=== PATIENT | female | born 1925 | race Caucasian/White ===

== ENCOUNTER 2016-05-29 10:52 | Inpatient (IN) ==
[2016-05-29] MEDS ORDERED: cefTRIAXone 1,000 MG in SODIUM CHLORIDE 0.9% 100 ML IV STA (15:02)
[2016-05-29] MEDS ORDERED: ACETAMINOPHEN 500 MG TABLET PO STA (15:02)
[2016-05-29] MEDS ORDERED: SODIUM CHLORIDE 0.9% 500 ML IV STA (15:02)
[2016-05-29 15:17] LABS: Basophils # 0.1 10*3/uL (0.0-0.2); Basophils % 0.3 % (0.0-0.8); Eosinophils # 0.1 10*3/uL (0.0-0.87); Eosinophils % 0.3 % (0.00-10.9); Hematocrit 35.3 VOL% (35.7-47.0); Hemoglobin 11.8 GM/DL (12.0-16.0); Immature Granulocytes % 0.6 %; Lymphocytes # 1.1 10*3/uL (1.4-4.0); Lymphocytes % 6.2 % (21.3-54.2); Mean Corpuscular HGB Conc 33.4 GM/DL (32-36); Mean Corpuscular Hemoglobin 28 PG (27-34); Mean Corpuscular Volume 84.4 FL (87-102); Mean Platelet Volume 11.8 FL (9.6-12.0); Monocytes # 1.5 10*3/uL (0.11-0.8); Monocytes % 8.3 % (1.7-12.7); Neutrophils # 15.1 10*3/uL (1.4-7.4); Neutrophils % 84.3 % (38.7-73.9); Platelet Count 174 T/CUMM (130-400); Red Blood Count 4.18 MC/CUMM (3.8-5.5); Red Cell Distribution Width 14.2 % (9.3-17.3); White Blood Count 17.9 T/CUMM (4-12)
--- NOTE | 2016-05-29 15:18 | Emergency Department Note ---
ICornelius Meredith, am scribing for, and in the presence of, Moe King MD 14:23. Christine Gomes Charles R, MD, personally performed the services described in this documentation, ascribed by Jaimee Shields in my presence, and it is both accurate and complete 518 . Arrival - Arrival Chief Complaint: Non-Specific Stated Complaint: UTI Kidney problems sob feels cold ED Nursing Triage Note: pt was sent from [facility] for dehyradtion, a fib and uti. pt was seen here saturday in the er and didnt want to stay Mode of Arrival: Wheelchair Limitations: No Limitations Source: Patient, Family, Old Records Reviewed, RN Notes Reviewed Time Seen by Provider: 05/29/16 13:50 - History of Present Illness HPI Narrative: Pt is an 89 y/o white female sent to the ED from Dr. Carroll's office for further evaluation of dehydration, a-fib, and UTI. Niece states that last night pt had chills and rigors. Pt denies body aches. She was seen here 3 days ago but dit not want to stay. She has a history of HTN and valvular heart disease. Onset (ago): day(s) Allergies/Adverse Reactions: Allergies Allergy/AdvReac Type Severity Reaction Status Date / Time No Known Allergies Allergy Unverified 05/26/16 11:42 Home Medications: Home Medications Medication Instructions Recorded Confirmed Type Allopurinol 300 mg PO DAILY 05/29/16 05/29/16 History Aspirin [Ecotrin] 81 mg PO DAILY 05/29/16 05/29/16 History Atorvastatin [Lipitor] 5 mg PO QPM 05/29/16 05/29/16 History Calcium (Carbonate) [Oscal 500] 500 mg PO BID 05/29/16 05/29/16 History Fluticasone/Salmeterol 250-50 1 puff INH BID 05/29/16 05/29/16 History [Advair 250-50] Furosemide Tab [Lasix Tab] 20 mg PO BID 05/29/16 05/29/16 History Meloxicam [Mobic] 7.5 mg PO BID PRN 05/29/16 05/29/16 History Metoprolol Tartrate 50 mg PO BID 05/29/16 05/29/16 History Vit C/Selvin AC/Lut/Copper/Znox 1 each PO BID 05/29/16 05/29/16 History [Preservision Lutein Softgel] Warfarin [Coumadin] 3 mg PO QPM 05/29/16 05/29/16 History amLODIPine [Norvasc] 5 mg PO QPM 05/29/16 05/29/16 History diltiaZEM HCl [Diltiazem HCl] 120 mg PO DAILY 05/29/16 05/29/16 History Review of System - Review of System 12 point system: reviewed and no additional remarkable complaints except as stated - Review of System Constitutional: Present: as per HPI, chills, other (rigors) Cardiovascular: Present: as per HPI, other (a-fib) Gastrointestinal: Present: as per HPI, other (dehydration) Genitourinary female: Present: as per HPI, other (UTI) Medical,Surgical,& Family Hx - Medical History Cardio: History of: Hypertension, Valvular Heart Disease - Surgical History Orthopedic Surgeries: Patient denies;: Spinal Surgery - Family History Family History: Denies;: Additional Family History - Social History Smoking Status: Never smoker Frequency of Alcohol Use: None Type of Drug Use: None Exam Vital Signs: Vital Signs Temperature 97.6 F 05/29/16 12:16 Pulse Rate 81 05/29/16 12:16 Respiratory Rate 18 05/29/16 12:16 Blood Pressure 144/74 05/29/16 12:16 O2 Sat by Pulse Oximetry 95 05/29/16 11:03 - General General appearance: alert, in no apparent distress - Head Head exam: Present: atraumatic, normocephalic - Eye Eye exam: Present: normal appearance, PERRL, EOMI - ENT ENT exam: Present: mucous membranes dry, normal external ear exam - Neck Neck exam: Present: full ROM, trachea midline. Absent: tenderness, meningismus , lymphadenopathy, thyromegaly - Chest Chest inspection: Present: symmetric chest wall rise. Absent: tenderness, rash - Respiratory Respiratory exam: Present: rhonchi (bilaterally ) - Cardiovascular Cardiovascular exam: Present: irregular rhythm. Absent: murmur, rubs, gallop - Abdominal Exam Abdominal exam: Present: soft, normal bowel sounds. Absent: distention, tenderness - Extremities Exam Extremities exam: Present: full ROM, normal capillary refill. Absent: tenderness, pedal edema, calf tenderness - Back Exam Back exam: Present: full ROM. Absent: tenderness - Neurological Exam Neurological exam: Present: alert, oriented X3, CN II-XII intact. Absent: motor sensory deficit - Psychiatric Psychiatric exam: Present: normal affect, normal mood - Skin Skin exam: Present: warm, dry, intact, normal color Course - Consultations Consultation #1: Hospitalist will admit patient Time: 16:13 Results - Labs CBC & BMP: 05/29/16 15:10 05/29/16 15:10 Lab Results: I have reviewed the patients labs Labs: Laboratory Tests 05/29/16 15:10 WBC 17.9 H RBC 4.18 Hgb 11.8 L Hct 35.3 L MCV 84.4 L Plt Count 174 Neut % (Auto) 84.3 H Lymph % (Auto) 6.2 L Neut # (Auto) 15.1 H Lymph # (Auto) 1.1 L Moca # (Auto) 1.5 H Laboratory Tests 05/29/16 15:10 Sodium 140 Potassium 3.3 L Chloride 105 Carbon Dioxide 25 BUN 23 H Creatinine 0.90 BUN/Creatinine Ratio 25.00 H Glucose 120 H Alkaline Phosphatase 131 H Lactate Dehydrogenase 335 H C-Reactive Protein 14.70 H Albumin 2.8 L Globulin 3.8 H Albumin/Globulin Ratio 0.7 L Influenza A: neg Influenza B: neg Strep: neg Laboratory Tests 05/29/16 16:03 Urine pH 6.0 Ur Specific [place] 1.015 Urine Protein 30 Urine Ketones 20 Urine Urobilinogen < 2.0 H Urine Leukocytes Moderate H Urine WBC 153 Urine WBC Clumps Many Ur Squamous Epith Cells Occasional Amorphous Crystals Occasional Urine Bacteria Many - Diagnostic Findings Procedure: Chest x-ray: report reviewed by me (1. Cardiomegaly. 2. Probable minimal pulmonary edema.) Critical Care Time Critical Care Time: Yes Total Critical Care Time: 60 Disposition Clinical Impression: Rigors, Fever, UTI (urinary tract infection) Case discussed with: patient Condition: Stable Time of Disposition: 16:14
--- NOTE | 2016-05-29 15:29 | XRay Report ---
Referring Physician: Moe King Exam: XR chest 1V portable Date: May 29, 2016 at 3:02 PM Reason: Shortness of breath, fever Comparison: May 26, 2016 Findings: The cardiac silhouette is again enlarged, and the patient is status post sternotomy. The thoracic aorta is tortuous with scattered calcified plaque. The interstitial markings are prominent bilaterally. This likely represents minimal pulmonary edema. Pneumonia is not excluded but is thought less likely. No pneumothorax or pleural effusion is identified. Impression: 1. Cardiomegaly. 2. Probable minimal pulmonary edema. PROCEDURE INTERPRETED AT [facility] DEPARTMENT OF RADIOLOGY Final Report Signed by: Dr. Wild Casas
[2016-05-29 15:38] LABS: Albumin 2.8 G/DL (3.4-5.0); Bilirubin,Total 0.9 MG/DL (0.2-1.0); Calcium 9.4 MG/DL (8.5-10.1); Osmolality,Calculated 283.4 MOS/KG (273-304); Potassium 3.3 MMOL/L (3.5-5.1); Total Protein 6.6 G/DL (6.4-8.3)
[2016-05-29] MEDS ORDERED: cefTRIAXone 1,000 MG VIAL ONE (15:38)
[2016-05-29] MEDS ORDERED: ACETAMINOPHEN 500 MG TABLET ONE (15:39)
[2016-05-29 16:23] LABS: Amorphous Crystals,Urine Occasional /HPF (Few); Apearance,Urine CLOUDY (Clear); Bacteria,Urine Many /HPF (Few); Bilirubin,Urine Negative (Negative); Blood, Urine Negative (Negative); Glucose,Urine (UA) Negative (Negative); Ketones,Urine 20 mg/dL (Negative); Nitrite,Urine Negative (Negative); Protein,Urine 30 MG/DL; Squamous Epithelial Cell,Urine Occasional /HPF (0-10); Urine Color Yellow (Yellow); Urine Specific Gravity 1.015 (1.001-1.035); Urine Urobilinogen < 2.0 EU/DL (0.2-1.0); WBC,Urine 153 /HPF (0-6)
--- NOTE | 2016-05-29 17:13 | Hospitalist History & Physical ---
Assessment and Plan (1) Urinary tract infection Status: Acute Assessment and plan: will continue with IV Rocephin -follow UC, BC continue IVF Current Visit: Yes (2) Dehydration Status: Acute Assessment and plan: due to UTI -will continue with IVF Current Visit: Yes (3) Atrial fibrillation Status: Acute Assessment and plan: rate is stable, will continue with home meds, resume coumadin and check INR level Current Visit: No (4) HTN (hypertension) Status: Acute Assessment and plan: use meds cautiously and hold lasix, diltiazem and Norvasc for now Current Visit: Yes (5) Dyslipidemia Status: Acute Assessment and plan: will resume home meds Current Visit: Yes (6) Gout Status: Acute Assessment and plan: continue home meds Current Visit: Yes (7) Valvular disease Status: Acute Assessment and plan: stable for now Current Visit: Yes History of Present Illness Chief complaint: fever, chills, rigor History of present illness: Ms. Sullivan is a 89 year old female with a history of HTN, valvular heart disease , A.fib who presented to the ER on Saturday with fever, chills and rigor.She was diagnosed with UTI and was treated and sent home.Symptoms worsened two days after, and was brought back to the ER today.She denies a history of dysuria, hematuria and abdominal pain. No history of chest pain, tightness and SOB.No leg pain or swelling and no bleeding problems. Upon arrival, WBC was elevated at 17.9, BUN was high at 23.UA was positive, she was started on IV Rocephin, IVF , acetaminophen and now on admission for further care. Home Medications Medication Instructions Recorded Confirmed Type Allopurinol 300 mg PO DAILY 05/29/16 05/29/16 History Aspirin [Ecotrin] 81 mg PO DAILY 05/29/16 05/29/16 History Atorvastatin [Lipitor] 5 mg PO QPM 05/29/16 05/29/16 History Calcium (Carbonate) [Oscal 500] 500 mg PO BID 05/29/16 05/29/16 History Fluticasone/Salmeterol 250-50 1 puff INH BID 05/29/16 05/29/16 History [Advair 250-50] Furosemide Tab [Lasix Tab] 20 mg PO BID 05/29/16 05/29/16 History Meloxicam [Mobic] 7.5 mg PO BID PRN 05/29/16 05/29/16 History Metoprolol Tartrate 50 mg PO BID 05/29/16 05/29/16 History Vit C/Selvin AC/Lut/Copper/Znox 1 each PO BID 05/29/16 05/29/16 History [Preservision Lutein Softgel] Warfarin [Coumadin] 3 mg PO QPM 05/29/16 05/29/16 History amLODIPine [Norvasc] 5 mg PO QPM 05/29/16 05/29/16 History diltiaZEM HCl [Diltiazem HCl] 120 mg PO DAILY 05/29/16 05/29/16 History Allergies Allergy/AdvReac Type Severity Reaction Status Date / Time No Known Allergies Allergy Unverified 05/26/16 11:42 Medical,Surgical,& Family Hx - Medical History Cardio: History of: Hypertension, Valvular Heart Disease - Surgical History Orthopedic Surgeries: Patient denies;: Spinal Surgery - Family History Family History: Denies;: Additional Family History - Social History Smoking Status: Never smoker Frequency of Alcohol Use: None Type of Drug Use: None 12 point system: reviewed and no additional remarkable complaints except as stated Exam - Constitutional Vitals: Period Temp Pulse Resp BP Sys/Fitzgerald Pulse Ox Last 24 Hr 97.6 F-98.2 F 81-99 18-20 122-144/71-74 95 General appearance: no acute distress - Head Head exam: Present: normal inspection - Respiratory Respiratory exam: Present: clear to auscultation bilaterally - Cardiovascular Cardiovascular exam: Present: regular rate and rhythm - GI/Abdominal GI/Abdominal exam: Present: normal bowel sounds - Extremities Exam Extremities exam: Present: normal inspection Results - Labs CBC & BMP: 05/29/16 15:10 05/29/16 15:10 Lab Results: I have reviewed the past 24 hour labs
[2016-05-29] MEDS ORDERED: MELOXICAM 7.5 MG TABLET PO PRN (22:01)
[2016-05-29] MEDS: MULTIVITAMIN (OCUVITE) TABLET PO SCH (23:25)
[2016-05-29] MEDS: SODIUM CHLORIDE 0.9% 1,000 ML IV SCH (23:25)
[2016-05-29] MEDS: CALCIUM (CARBONATE) 500 MG TABLET PO SCH (23:25)
[2016-05-29] MEDS: ATORVASTATIN 10 MG TABLET PO SCH (23:25)
[2016-05-29] MEDS: METOPROLOL TARTRATE 50 MG TABLET PO SCH (23:26)
[2016-05-29] MEDS: FLUTICASONE/SALMETEROL 250-50 DISKUS 14 DOSE INH SCH (23:26)
[2016-05-29 23:28] LABS: INR 3.1
[2016-05-29 23:29] LABS: PT Patient Result 35.5 SECS
[2016-05-30] MEDS: WARFARIN 3 MG TABLET PO SCH ×2 (00:29→17:40)
[2016-05-30 00:37] LABS: Cholesterol < 50 MG/DL (50-200); HDL Cholesterol 18 MG/DL (40-60); Risk Ratio 2.78; Triglycerides 147 MG/DL (2-150); VLDL CHOLESTEROL 29.4 MG/DL
[2016-05-30 06:06] LABS: Basophils % 0.2 % (0.0-0.8); Eosinophils % 0.1 % (0.00-10.9); Hematocrit 33.7 VOL% (35.7-47.0); Hemoglobin 11.2 GM/DL (12.0-16.0); Immature Granulocytes Absolute 0.16 #; Lymphocytes # 1.4 10*3/uL (1.4-4.0); Lymphocytes % 8.1 % (21.3-54.2); Mean Corpuscular HGB Conc 33.2 GM/DL (32-36); Mean Corpuscular Hemoglobin 28 PG (27-34); Mean Corpuscular Volume 84.9 FL (87-102); Mean Platelet Volume 12.7 FL (9.6-12.0); Monocytes # 1.2 10*3/uL (0.11-0.8); Monocytes % 7.2 % (1.7-12.7); Neutrophils # 13.9 10*3/uL (1.4-7.4); Neutrophils % 83.4 % (38.7-73.9); Platelet Count 189 T/CUMM (130-400); Red Blood Count 3.97 MC/CUMM (3.8-5.5); Red Cell Distribution Width 14.6 % (9.3-17.3); White Blood Count 16.6 T/CUMM (4-12)
[2016-05-30 06:19] LABS: INR 3.6; PT Patient Result 41.1 SECS
[2016-05-30 06:39] LABS: Albumin 2.7 G/DL (3.4-5.0); Bilirubin,Total 1.2 MG/DL (0.2-1.0); Calcium 9.2 MG/DL (8.5-10.1); Osmolality,Calculated 287.8 MOS/KG (273-304); Potassium 3.5 MMOL/L (3.5-5.1); Total Protein 5.6 G/DL (6.4-8.3)
[2016-05-30] MEDS: MULTIVITAMIN (OCUVITE) TABLET PO SCH ×2 (08:38→21:43)
[2016-05-30] MEDS: METOPROLOL TARTRATE 50 MG TABLET PO SCH ×2 (08:38→21:43)
[2016-05-30] MEDS: ASPIRIN EC 81 MG TABLET PO SCH (08:38)
[2016-05-30] MEDS: ALLOPURINOL 300 MG TABLET PO SCH (08:38)
[2016-05-30] MEDS: CALCIUM (CARBONATE) 500 MG TABLET PO SCH ×2 (08:38→21:44)
[2016-05-30] MEDS: PANTOPRAZOLE 40 MG TABLET PO SCH (08:38)
[2016-05-30] MEDS: FLUTICASONE/SALMETEROL 250-50 DISKUS 14 DOSE INH SCH ×2 (09:14→21:43)
[2016-05-30] MEDS: SODIUM CHLORIDE 0.9% 1,000 ML IV SCH ×2 (10:21→13:36)
[2016-05-30] MEDS: ALBUTEROL/IPRATROPIUM 3 ML NEB RESP TX PRN (14:35)
--- NOTE | 2016-05-30 15:09 | Hospitalist Progress Note ---
Assessment and Plan (1) Urinary tract infection Status: Acute Assessment and plan: UC grew gram positive cocci -will add IV vanc, monitor levels and follow sensitivity, follow Bc Current Visit: Yes (2) Dehydration Status: Acute Assessment and plan: due to UTI -will encourage po intake Current Visit: Yes (3) Atrial fibrillation Status: Acute Assessment and plan: rate is stable, continue with home meds, coumadin and check INR level- Pharmacy to keep assisting. Current Visit: No (4) HTN (hypertension) Status: Acute Assessment and plan: use meds cautiously and hold lasix, diltiazem and Norvasc for now Current Visit: Yes (5) Dyslipidemia Status: Acute Assessment and plan: continue with statins Current Visit: Yes (6) Gout Status: Acute Assessment and plan: continue with Allopurinol Current Visit: Yes (7) Valvular disease Status: Acute Assessment and plan: stable for now Current Visit: Yes (8) Acute respiratory distress Status: Acute Assessment and plan: r/o atelectasis vs fluid overload CXR, D-dimer, if elevated-consider CT with PTE protocol although patient is already on coumadin. -hold IVf for now, continue with oxygen, nebs treatment Current Visit: Yes Hospitalist: Subjective Interval history: Patient seen.She had an episode of SOB so her IVF was held and she was started on oxygen, nebs treatment and will be going for a CXR and will also have a D- dimer checked. Exam - Constitutional Vitals: Period Temp Pulse Resp BP Sys/Fitzgerald Pulse Ox Last 24 Hr 97.1 F-99.9 F 61-100 12-22 114-154/60-73 94-99 General appearance: no acute distress - Respiratory Respiratory exam: Present: clear to auscultation bilaterally - Cardiovascular Cardiovascular exam: Present: regular rate and rhythm - GI/Abdominal GI/Abdominal exam: Present: normal bowel sounds - Extremities Exam Extremities exam: Present: normal inspection Results - Labs CBC & BMP: 05/30/16 05:37 05/30/16 05:37 Lab Results: I have reviewed the past 24 hour labs Quality Measures - VTE Contraindication to Pharmacological VTE Prophylaxis: Coagulopathy
[2016-05-30] MEDS: cefTRIAXone 1,000 MG in SODIUM CHLORIDE 0.9% 100 ML IV SCH (15:45)
--- NOTE | 2016-05-30 16:48 | XRay Report ---
Exam: Chest 2 views Date: May 30, 2016 at 4:00 PM Comparison: Chest one view portable May 29, 2016 Reason: Shortness of breath Findings: The cardiac silhouette is again enlarged, and the patient status post sternotomy. The thoracic aorta is tortuous with prominent calcified plaque. The interstitial markings are prominent bilaterally, which is concerning for mild pulmonary edema and possibly scarring. Other less likely considerations include infection. No pneumothorax or pleural effusion is identified. No acute osseous process is seen. Impression: 1. Cardiomegaly. 2. The interstitial markings are again prominent bilaterally. This likely represents mild pulmonary edema and may have slightly progressed. PROCEDURE INTERPRETED AT [facility] DEPARTMENT OF RADIOLOGY Final Report Signed by: Dr. Wild Casas
[2016-05-30] MEDS: VANCOMYCIN INJ 1,000 MG in SODIUM CHLORIDE 0.9% 250 ML IV SCH (17:40)
[2016-05-30] MEDS: ATORVASTATIN 10 MG TABLET PO SCH (21:43)
[2016-05-31] MEDS: SODIUM CHLORIDE 0.9% 1,000 ML IV SCH ×3 (01:38→13:56)
[2016-05-31] MEDS: VANCOMYCIN INJ 1,000 MG in SODIUM CHLORIDE 0.9% 250 ML IV SCH ×2 (04:17→17:37)
[2016-05-31] MEDS: ACETAMINOPHEN 325 MG TABLET PO PRN (04:26)
[2016-05-31] MEDS: ALBUTEROL/IPRATROPIUM 3 ML NEB RESP TX PRN (04:35)
[2016-05-31 05:24] LABS: Basophils # 0.1 10*3/uL (0.0-0.2); Basophils % 0.3 % (0.0-0.8); Eosinophils % 0.1 % (0.00-10.9); Hematocrit 33.7 VOL% (35.7-47.0); Hemoglobin 10.9 GM/DL (12.0-16.0); Immature Granulocytes % 0.8 %; Immature Granulocytes Absolute 0.13 #; Lymphocytes # 1.3 10*3/uL (1.4-4.0); Lymphocytes % 7.7 % (21.3-54.2); Mean Corpuscular HGB Conc 32.3 GM/DL (32-36); Mean Corpuscular Hemoglobin 28 PG (27-34); Mean Corpuscular Volume 84.9 FL (87-102); Mean Platelet Volume 12.3 FL (9.6-12.0); Monocytes # 1.5 10*3/uL (0.11-0.8); Monocytes % 8.8 % (1.7-12.7); Neutrophils # 13.5 10*3/uL (1.4-7.4); Neutrophils % 82.3 % (38.7-73.9); Platelet Count 187 T/CUMM (130-400); Red Blood Count 3.97 MC/CUMM (3.8-5.5); Red Cell Distribution Width 14.3 % (9.3-17.3); White Blood Count 16.4 T/CUMM (4-12)
[2016-05-31 05:40] LABS: INR 5.3
[2016-05-31 05:50] LABS: Calcium 8.5 MG/DL (8.5-10.1); Osmolality,Calculated 285.1 MOS/KG (273-304); Potassium 3.6 MMOL/L (3.5-5.1)
--- NOTE | 2016-05-31 05:57 | EKG Report ---
Stationary ECG Study [facility] Test Date: 05/31/2016 5:52:10 AM Pat Name: ERIC ALLISON Department: Room: 330 Gender: F Search Engine Optimizer: RT : 1925 Requested by: Korin Alejo Order Number: [id number] Reading MD: ANTONIO CAMACHO Intervals [place] Rate: 91 P: 999 WV: 0 QRS: -52 QRSD: 161 T: 16 QT: 409 QTc: 458 Interpretive Statements ATRIAL FIBRILLATION RIGHT BUNDLE BRANCH BLOCK LEFT ANTERIOR FASCICULAR BLOCK Electronically Signed On 05-31-16 11:44:47 BELT MACHINE OPERATOR by ANTONIO CAMACHO [email or web address]
[2016-05-31 06:14] LABS: Basophils # 0.1 10*3/uL (0.0-0.2); Basophils % 0.3 % (0.0-0.8); Eosinophils % 0.1 % (0.00-10.9); Hematocrit 34.6 VOL% (35.7-47.0); Hemoglobin 11.5 GM/DL (12.0-16.0); Immature Granulocytes % 1.3 %; Immature Granulocytes Absolute 0.26 #; Lymphocytes # 1.7 10*3/uL (1.4-4.0); Lymphocytes % 8.2 % (21.3-54.2); Mean Corpuscular HGB Conc 33.2 GM/DL (32-36); Mean Corpuscular Hemoglobin 28 PG (27-34); Mean Corpuscular Volume 85.4 FL (87-102); Mean Platelet Volume 12.1 FL (9.6-12.0); Monocytes # 1.6 10*3/uL (0.11-0.8); Monocytes % 7.8 % (1.7-12.7); Neutrophils # 16.6 10*3/uL (1.4-7.4); Neutrophils % 82.3 % (38.7-73.9); Platelet Count 221 T/CUMM (130-400); Red Blood Count 4.05 MC/CUMM (3.8-5.5); Red Cell Distribution Width 14.6 % (9.3-17.3); White Blood Count 20.2 T/CUMM (4-12)
--- NOTE | 2016-05-31 06:21 | Event Note ---
Rapid response was called to the patient upstairs. She apparently fell and hit her head. She is being assisted by the nurse to the bathroom. She's developed a hematoma on her forehead. CT scan was ordered. Patient was transferred out of the unit. Patient had been having these spells according to the nurse saying it was like seizure-like activity that she would immediately come back. She had one these spells in front of us in the CCU. Her eyes rolled back she was asystolic. Code was called and chest compressions were started and rhythm returned almost immediately. We'll consult cardiology for further evaluation. Need to follow up on the CT scan report of her head. She has an INR of 5.3.
--- NOTE | 2016-05-31 06:25 | XRay Report ---
Exam: XR chest 1V Date: 05/31/2016 5:54 AM Indication: Chest pain Comparison: 05/30/2016 Technical: AP portable Findings: Cardiomegaly is present with previous sternotomy. ASVD is present. No obvious pneumothorax. Oxygen tubing superimposes exam. Some component of coarse bronchovascular markings are present without consolidating infiltrate or effusions. Impression: Cardiomegaly and previous sternotomy without acute CHF PROCEDURE INTERPRETED AT [facility] DEPARTMENT OF RADIOLOGY Final Report Signed by: Dr. Kirill Canales
[2016-05-31 06:32] LABS: Band Neutrophils 1 % (0-10); Burr Cells Slight; Elliptocytes Few; Hypochromasia 1+; Lymphocytes 8 % (20-55); Platelet Estimate Normal; Segmented Neutrophils 84 % (50-85); Total Cells Counted 100
[2016-05-31 06:33] LABS: Calcium 8.7 MG/DL (8.5-10.1); Potassium 3.5 MMOL/L (3.5-5.1)
--- NOTE | 2016-05-31 06:40 | CT Report ---
Exam: CT scan of brain without contrast Date: 05/31/2016 Indication: Pain after falling Comparison: None Patient's classification: Inpatient Technical: Images were obtained from the skull base to the vertex without the use of intravenous contrast. Dose reduction was performed with decreasing kv and mA and automated exposure Total DLP: 1081.1 mGy*cm Findings: Small vessel ischemic changes are present in the periventricular subcortical white matter regions. The brainstem and cerebellum reveal no acute findings. No obvious skull fracture present. The paranasal sinuses globes and cell and mastoids are intact. Vascular plaque in the internal carotid arteries present. Impression: 1. Small vessel ischemic change without acute hemorrhage infarction or mass effect. Exam: CT cervical spine wo con Date:05/31/2016 5:54 AM Indication: Pain after falling Comparison: None Total DLP: 300.3 mGy*cm Technical: Sagittal axial and coronal imaging was available for review with out the use of intravenous contrast. Dose reduction was performed with decreasing kv and mA and automated exposure Findings: 7 cervical vertebral bodies are demonstrated. The vertebral body heights, space, lamina, pedicles, and posterior elements are intact. Disc space narrowing is present at C4-5 C5-6 and C6-7 and C7-T1 with attempted bridging syndesmophytes anteriorly at these levels and posterior osteophytic spurring and facet arthropathy changes present. The arch at C1 and C2 and odontoid process are demonstrated with degenerative changes present. There appears to be a fracture of the inferior osteophyte on the inferior margin of C6 anteriorly.. The neural foramina canals are unremarkable. Minimal apical pleural thickening right greater than left with vascular calcification Impression 1. Fracture of the inferior osteophyte suspected at C6 anteriorly inferiorly 2. 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 3. Incidentally noted in the skull base some bony erosions along the inner table of the calvarium present posteriorly Critical test report called to Dr. Alejo at the time of dictation. PROCEDURE INTERPRETED AT [facility] DEPARTMENT OF RADIOLOGY Final Report Signed by: Dr. Kirill Canales
[2016-05-31 06:52] LABS: Apearance,Urine CLOUDY (Clear); Bacteria,Urine Occasional /HPF (Few); Bilirubin,Urine Negative (Negative); Blood, Urine Moderate mg/dL (Negative); Glucose,Urine (UA) Negative (Negative); Ketones,Urine 20 mg/dL (Negative); Nitrite,Urine Negative (Negative); Protein,Urine 30 MG/DL; RBC,Urine 332 /HPF (0-4); Squamous Epithelial Cell,Urine Occasional /HPF (0-10); Urine Color Yellow (Yellow); Urine Specific Gravity 1.014 (1.001-1.035); Urine Urobilinogen < 2.0 EU/DL (0.2-1.0); WBC,Urine 22 /HPF (0-6)
[2016-05-31] MEDS: METOPROLOL TARTRATE 50 MG TABLET PO SCH (10:13)
[2016-05-31] MEDS ORDERED: POTASSIUM CHLORIDE RIDER 100 ML IV ONE (10:17)
--- NOTE | 2016-05-31 10:29 | Hospitalist Progress Note ---
Assessment and Plan (1) Syncope, cardiogenic Status: Acute Assessment and plan: Patient has external pacers at this point and we plan to have cardiology come by the patient see her. Blood pressure at this point is optimal. Current Visit: Yes (2) Atrial fibrillation Status: Acute Assessment and plan: Continue current medications cardiology will comment to the patient. Current Visit: Yes Qualifiers: Atrial fibrillation type: chronic Qualified Code(s): I48.2 - Chronic atrial fibrillation (3) Urinary tract infection Status: Acute Assessment and plan: Continue current antibiotics. Patient has gram-positive cocci in pairs growing in the blood stimuli and bacteria has been reported in the urine. After discussion with microbiology this morning this is likely Enterococcus faecalis but because antibiogram is not out, enterococcus faeceum is still a possibility. If he turns out to be Enterococcus faecalis chances are going to sensitive to penicillin and patient would need to be on a penicillin and aminoglycoside. This patient does have a history of valvular replacement and therefore use of aminoglycosides is going to be a must; for fear of endocarditis Current Visit: Yes Qualifiers: Urinary tract infection type: site unspecified Hematuria presence: without hematuria Qualified Code(s): N39.0 - Urinary tract infection, site not specified Hospitalist: Subjective Interval history: Patient has been seen interviewed and examined and chart has been reviewed. Patient is seen in intensive care unit. Overnight she had developed a syncopal episode on the floor fell and hit her head. She was noted to be assystolic at one point and had they to do CPR on her. She is now awake alert and oriented. On telemetry I can see that she is in atrial fibrillation but every now and then she has pauses and she Bradys down. She has external pacers at this point. Cardiology consult is on board. I had also consulted orthopedic surgery because patient is noted on radiographs to have a facet fracture at C6 as a result of the fall that she sustained yesterday. I have been informed that orthopedic surgery here does not look at these problems but that the patient should be consulted to neurology; we have therefore put in a consultation for neurology department to see the patient. I do not see any focal neurologic problem at this point. Exam - Constitutional Vitals: Period Temp Pulse Resp BP Sys/Fitzgerald Pulse Ox Last 24 Hr 97.0 F-98.8 F 48-97 12-34 115-160/66-78 90-99 General appearance: normal weight, no acute distress - Head Head exam: Present: abrasion, other (Noted on the forehead. Patient has a soft collar in place.) - Eye Eye exam: Present: EOMI Pupils: Present: NORI - ENT ENT exam: Present: other (No nasal drainage.) - Neck Neck exam: Present: other (Neck: In place.) - Respiratory Respiratory exam: Present: clear to auscultation bilaterally - Cardiovascular Cardiovascular exam: Present: bradycardia, irregular rhythm, other (Occasional pauses.) - GI/Abdominal GI/Abdominal exam: Present: normal bowel sounds, soft, other (No guarding) - Extremities Exam Extremities exam: Present: other (No focal weakness noted) - Neurological Exam Neurological exam: Present: alert, oriented X3, CN II-XII intact, other (Could not express gait.) - Psychiatric Psychiatric exam: Present: normal affect, normal mood - Skin Skin exam: Present: other (Skin abrasions noted on the forehead as a result of the fall.) Results - Labs CBC & BMP: 05/31/16 05:59 05/31/16 05:59 Lab Results: I have reviewed the past 24 hour labs - EKG EKG shows: atrial fibrillation (Occasional pauses and occasional bradyarrhythmia.) Quality Measures - VTE Contraindication to Pharmacological VTE Prophylaxis: Coagulopathy
[2016-05-31] MEDS: POTASSIUM CHLORIDE RIDER 10 MEQ in PREMIX 1 EACH IV PRN ×3 (10:37→17:36)
[2016-05-31] MEDS: CALCIUM (CARBONATE) 500 MG TABLET PO SCH ×2 (10:39→21:17)
[2016-05-31] MEDS: MULTIVITAMIN (OCUVITE) TABLET PO SCH ×2 (10:39→21:21)
[2016-05-31] MEDS: FLUTICASONE/SALMETEROL 250-50 DISKUS 14 DOSE INH SCH ×2 (10:53→21:30)
[2016-05-31] MEDS: ASPIRIN EC 81 MG TABLET PO SCH (10:53)
[2016-05-31] MEDS: ALLOPURINOL 300 MG TABLET PO SCH (10:53)
[2016-05-31] MEDS: PANTOPRAZOLE 40 MG TABLET PO SCH (10:53)
--- NOTE | 2016-05-31 11:20 | Cardiology Consult Note ---
Edilberto Gomes Vanessa, RN, am scribing for, and in the presence of, David Alba MD 11:20. Assessment and Plan - Time spent with patient Time spent with patient: Greater than 30 minutes (due to assessment, planning, documentation, med review) (1) Atrial fibrillation Status: Acute Assessment and plan: Overall, rate is controlled at this time. Anticoagulated with Coumadin. Cardizem has not been resumed since admission. Current Visit: Yes Qualifiers: Atrial fibrillation type: chronic Qualified Code(s): I48.2 - Chronic atrial fibrillation (2) Cardiac asystole Status: Acute Assessment and plan: Patient is having significant pauses and this likely as a cause of her syncopal episode. She will need single-chamber pacing. We will ask Dr. Palacios to review I have discussed in detail the particulars of this case and I have examined the patient and reviewed the patient's chart both current and old. I was directly involved in the patient's evaluation and management and I completely agree with Brenda Casanova regarding this patient's evaluation and treatment plan. Current Visit: Yes (3) H/O aortic valve replacement Status: Acute Current Visit: No (4) Urinary tract infection Status: Acute Assessment and plan: IV antibiotics. Defer management to hospitalist. Current Visit: Yes Qualifiers: Urinary tract infection type: site unspecified Hematuria presence: without hematuria Qualified Code(s): N39.0 - Urinary tract infection, site not specified (5) HTN (hypertension) Status: Chronic Assessment and plan: Lopressor continued upon admission. Norvasc has been held. Current Visit: Yes (6) Dyslipidemia Status: Acute Assessment and plan: FLP's noted. Continue current statin. Current Visit: Yes (7) Gout Status: Acute Assessment and plan: Defer management to hospitalist. Current Visit: No (8) Valvular disease Status: Acute Current Visit: Yes History of Present Illness - Data of Consult Patient: new to practice Consult date: 05/31/16 Requesting Physician: Geronimo Patrick - Consult Narrative Reason for consult: syncopal episode, s/p asystole History of present illness: Ms. Sullivan is a 89 year old white female not routinely followed by study assistant with [facility]. Past medical history includes HTN, atrial fib, aortic valve replacement, COPD, gout, dyslipidemia. She is on chronic anticoagulation with Coumadin and is routinely followed, per her report, by a study assistant in [place], Dr. Ulloa. Patient lives in [place], and she is currently here visiting family. Presented to the ER on 05/26/16 with complaints of shortness of breath, fever, and chills, felt like her "heart was racing", stating that it began after her sister fell and had a shoulder injury, and patient was extremely upset by this. While she was being evaluated, noted to have a decrease in her heart rate and a slight elevation of troponin at 0.112. Did not have active chest pain with this. She refused admission to hospital because she wanted to go home and be with her sister. Risks, benefits, alternatives discussed with patient and her family. They verbalized understanding. She was discharged home to care of family. On 05/29/16, she was seen by Dr. Carroll in clinic and was referred to emergency room for admission for UTI, dehydration, and atrial fib. Admitted to telemetry for further treatment. Since admission to telemetry, she has been hydrated with IV fluids. Blood culture and urine culture show gram (+) cocci. Has been started on IV Rocephin and IV vancomycin. Per note, she apparently was experiencing some shortness of breath yesterday. IV fluids held. Chest x-ray to rule out infiltrate vs volume overload and blood work drawn. Chest x-ray with interstitial markings bilaterally suggestive of mild pulmonary edema without acute CHF, cardiomegaly. D-dimer 1.7. Apparently had some presyncope vs syncopal episodes yesterday with ambulation. Overnight, she was being assisted to the bathroom per nursing staff , and she reports she had called for assistance because she felt "woozy" and " in and out of my head." While sitting on toilet prior to getting up, patient says everything went "fuzzy" and she did lose consciousness momentarily, falling forward and hitting her head, per RN present. Assisted back to bed by staff, continued to have approximately 3 more nonsustained syncopal episodes, COOK MANAGER was called, stat CT head/spine was acquired. CT revealed C6 fracture but no acute hemorrhage. Transferred to CCU for closer observation. Shortly after arrival to unit and on monitor, patient noted to lose consciousness and be asystolic. ACLS protocol immediately ensued, and after a few compressions, return of spontaneous circulation. Did not require any emergency medicines, defibrillation for rescuscitation and did not require intubation. Orthopedic services has since been consulted for further evaluation of cervical fracture. Cardiology has been consulted for further evaluation of asystole. Cardiac monitoring reveals atrial fibrillation with pauses which have been occurring with increasing frequency. INR this morning 5.3 (3.1 on admission). H/ H 11.5&34.6, platelets 221,000. WBC 20.2, troponin is 0.498, potassium 3.5, magnesium on admission 2.0. Patient seen and examined in CCU. She is awake and alert. C-collar in place. Laceration to forehead and bridge of nose is noted. Rouses easily and is oriented to time, place, person. Denies any recent chest pain at rest or with exertion. Denies recent or current dyspnea on exertion or acute dyspnea at this time. Denies orthopnea, PND, LE edema. Denies ever having had trouble with syncope prior to these recent episodes. Reports independent ambulation without difficulty at home. BP 119/77, current rate 80's, sa02 95% with 2L via nasal cannula. CC: Krzysztof Franz MD - Home Medications and Allergies Home Medications: Home Medications Medication Instructions Recorded Confirmed Type Allopurinol 300 mg PO DAILY 05/29/16 05/29/16 History Aspirin [Ecotrin] 81 mg PO DAILY 05/29/16 05/29/16 History Atorvastatin [Lipitor] 5 mg PO QPM 05/29/16 05/29/16 History Calcium (Carbonate) [Oscal 500] 500 mg PO BID 05/29/16 05/29/16 History Fluticasone/Salmeterol 250-50 1 puff INH BID 05/29/16 05/29/16 History [Advair 250-50] Furosemide Tab [Lasix Tab] 20 mg PO BID 05/29/16 05/29/16 History Meloxicam [Mobic] 7.5 mg PO BID PRN 05/29/16 05/29/16 History Metoprolol Tartrate 50 mg PO BID 05/29/16 05/29/16 History Vit C/Selvin AC/Lut/Copper/Znox 1 each PO BID 05/29/16 05/29/16 History [Preservision Lutein Softgel] Warfarin [Coumadin] 3 mg PO QPM 05/29/16 05/29/16 History amLODIPine [Norvasc] 5 mg PO QPM 05/29/16 05/29/16 History diltiaZEM HCl [Diltiazem HCl] 120 mg PO DAILY 05/29/16 05/29/16 History Allergies/Adverse Reactions: Allergies Allergy/AdvReac Type Severity Reaction Status Date / Time No Known Allergies Allergy Unverified 05/26/16 11:42 - Constitutional Constitutional: Present: chills, fatigue, weakness. Absent: fever(s), frequent falls, weight gain, weight loss - EENT Eyes: Absent: blurry vision, loss of vision Ears: Present: decreased hearing. Absent: ear pain Nose, mouth and throat: Absent: dysphagia, epistaxis, neck pain, throat swelling , tongue swelling, vertigo - Cardiovascular Cardiovascular: Present: dyspnea (none at time of exam.), lightheadedness, palpitations. Absent: chest pain at rest, chest pain with activity, claudication, diaphoresis, dyspnea on exertion, edema, radiating jaw, neck or arm pain, orthopnea, PND - Respiratory Respiratory: Absent: cough, hemoptysis, wheezing, pain on inspiration, change in phlegm color - Gastrointestinal Gastrointestinal: Absent: abdominal pain, constipation, diarrhea, dysphagia, early satiety, hematochezia, melena, nausea, vomiting, jaundice - Genitourinary Genitourinary: Absent: dysuria, flank pain, hematuria - Musculoskeletal Musculoskeletal: Present: arthralgias, limited range of motion - Neurological Neurological: Present: dizziness, syncope (prior to transfer to CCU). Absent: abnormal speech, confusion, headache(s), tremor(s) - Psychiatric Psychiatric: Absent: anxiety, depression - Endocrine Endocrine: Absent: cold intolerance, heat intolerance - Hematologic/Lymphatic Hematologic/Lymphatic: Present: easy bleeding, easy bruising Medical,Surgical,& Family Hx - Medical History Cardio: History of: Cardiac Dysrhythmia (chronic atrial fib), Hypertension, Valvular Heart Disease (2012- AVR) No history of: Congenital Heart Disease, CHF Psychological: No history of: Depression Neurology: No history of: Dementia, Seizures, TIA HEENT: History of: Eye Problem Endocrine: History of: Dyslipidemia No history of: Diabetes Mellitus (IDDM), Diabetes Mellitus (NIDDM), Thyroid Disorder Rheumatology: History of;: Gout Respiratory: History of: COPD Genitourinary: History of: Kidney Stones Gastrointestinal: No history of: Esophageal Varices, Hepatitis Musculoskeletal: History of: Degenerative Disk Disease Hematology: No history of: Anemia - Surgical History Cardiac Surgeries: Sugical HX of: Cardiac Surgery Patient Denies: Cardiac Catheterization HEENT Surgeries: Patient denies: Carotid Endarterectomy Orthopedic Surgeries: Patient denies;: Spinal Surgery - Family History Family History: Reports;: Family Stroke (MOTHER) Denies;: Additional Family History - Social History Smoking Status: Never smoker Frequency of Alcohol Use: None Type of Drug Use: None Functional capacity: independent ambulation Physical Examination Vital Signs Temp Pulse Resp BP Pulse Ox 98.2 F 99 H 20 122/71 95 05/29/16 11:03 05/29/16 11:03 05/29/16 11:03 05/29/16 11:03 05/29/16 11:03 General: Present: No Apparent Distress, Other HEENT: Present: PERRL, Mucus Membranes Dry. Absent: Pallor Neck: Present: Supple Neck, Midline Trachea, No Bruit Cardiac: Present: Irregularly Regular, Systolic Murmur. Absent: Tachycardia, Bradycardia Lungs: Present: Clear Ascult./Percussion, Oxygen, No Wheeze, Rales, Rhonchi Neuro: Present: Grossly Intact. Absent: Resting Tremor, Essential Tremor Abdomen: Present: Soft, Active Bowel Sounds. Absent: Ascites, Tender Skin: Present: Other (laceration to forehead with some bruising, small lac to bridge of nose) Musculoskeletal: Present: No Fluid Collection. Absent: Normal Range of Motion Extremities: Present: No Cyanosis, No Edema, Normal Upper Extr. Pulses (2+ bilaterally), Normal Lower Extr. Pulses (2+ bilaterally), Capillary Refill ( normal) Result/EKG - Labs CBC & BMP: 05/31/16 05:59 05/31/16 05:59 Lab Results: I have reviewed the past 24 hour labs Labs: Laboratory Results - last 24 hr 05/30/16 05/30/16 05/30/16 15:49 15:49 19:34 WBC RBC Hgb Hct MCV MCH MCHC RDW Plt Count MPV Neut % (Auto) Lymph % (Auto) Jasper % (Auto) Eos % (Auto) Baso % (Auto) Neut # (Auto) Lymph # (Auto) Jasper # (Auto) Eos # (Auto) Baso # (Auto) Total Counted Immature Gran % Nucleated RBC % Immature Gran # Segmented Neutrophils Band Neutrophils Lymphocytes Monocytes Nucleated RBCs # Platelet Estimate Hypochromasia [place] Cells Elliptocytes Morphology Comment INR PT Patient/Control Mix D-Dimer, Quantitative 1.7 Sodium Potassium Chloride Carbon Dioxide Anion Gap BUN Creatinine GFR Calculation BUN/Creatinine Ratio Glucose POC Glucose Calculated Osmolality Calcium Troponin I Urine Color Urine Appearance Urine pH Ur Specific [place] Urine Protein Urine Glucose (UA) Urine Ketones Urine Blood Urine Nitrate Urine Bilirubin Urine Urobilinogen Urine Leukocytes Urine RBC Urine WBC Urine WBC Clumps Ur Squamous Epith Cells Urine Bacteria Ur Culture Indicated? Vancomycin Peak 20.0 Vancomycin Trough < 0.8 L 05/31/16 05/31/16 05/31/16 04:46 04:46 04:46 WBC 16.4 H RBC 3.97 Hgb 10.9 L Hct 33.7 L MCV 84.9 L MCH 28 MCHC 32.3 RDW 14.3 Plt Count 187 MPV 12.3 H Neut % (Auto) 82.3 H Lymph % (Auto) 7.7 L Jasper % (Auto) 8.8 Eos % (Auto) 0.1 Baso % (Auto) 0.3 Neut # (Auto) 13.5 H Lymph # (Auto) 1.3 L Jasper # (Auto) 1.5 H Eos # (Auto) 0.0 Baso # (Auto) 0.1 Total Counted Immature Gran % 0.8 Nucleated RBC % 0.0 Immature Gran # 0.13 Segmented Neutrophils Band Neutrophils Lymphocytes Monocytes Nucleated RBCs # 0.00 Platelet Estimate Hypochromasia [place] Cells Elliptocytes Morphology Comment INR 5.3 H* PT Patient/Control Mix 63.0 D D-Dimer, Quantitative Sodium 142 Potassium 3.6 Chloride 108 H Carbon Dioxide 22 Anion Gap 15.6 H BUN 16 Creatinine 0.80 GFR Calculation 70 BUN/Creatinine Ratio 20.00 Glucose 132 H POC Glucose Calculated Osmolality 285.1 Calcium 8.5 Troponin I Urine Color Urine Appearance Urine pH Ur Specific [place] Urine Protein Urine Glucose (UA) Urine Ketones Urine Blood Urine Nitrate Urine Bilirubin Urine Urobilinogen Urine Leukocytes Urine RBC Urine WBC Urine WBC Clumps Ur Squamous Epith Cells Urine Bacteria Ur Culture Indicated? Vancomycin Peak Vancomycin Trough 05/31/16 05/31/16 05/31/16 05:48 05:59 05:59 WBC 20.2 H RBC 4.05 Hgb 11.5 L Hct 34.6 L MCV 85.4 L MCH 28 MCHC 33.2 RDW 14.6 Plt Count 221 MPV 12.1 H Neut % (Auto) 82.3 H Lymph % (Auto) 8.2 L Jasper % (Auto) 7.8 Eos % (Auto) 0.1 Baso % (Auto) 0.3 Neut # (Auto) 16.6 H Lymph # (Auto) 1.7 Jasper # (Auto) 1.6 H Eos # (Auto) 0.0 Baso # (Auto) 0.1 Total Counted 100 Immature Gran % 1.3 Nucleated RBC % 0.0 Immature Gran # 0.26 Segmented Neutrophils 84 Band Neutrophils 1 Lymphocytes 8 L Monocytes 7 Nucleated RBCs # 0.00 Platelet Estimate Normal Hypochromasia 1+ [place] Cells Slight Elliptocytes Few Morphology Comment INR PT Patient/Control Mix D-Dimer, Quantitative Sodium 143 Potassium 3.5 Chloride 108 H Carbon Dioxide 21 Anion Gap 17.5 H BUN 17 Creatinine 0.80 GFR Calculation 70 BUN/Creatinine Ratio 21.00 H Glucose 154 H POC Glucose 143 H Calculated Osmolality 289.0 Calcium 8.7 Troponin I Urine Color Urine Appearance Urine pH Ur Specific [place] Urine Protein Urine Glucose (UA) Urine Ketones Urine Blood Urine Nitrate Urine Bilirubin Urine Urobilinogen Urine Leukocytes Urine RBC Urine WBC Urine WBC Clumps Ur Squamous Epith Cells Urine Bacteria Ur Culture Indicated? Vancomycin Peak Vancomycin Trough 05/31/16 05/31/16 05:59 06:20 WBC RBC Hgb Hct MCV MCH MCHC RDW Plt Count MPV Neut % (Auto) Lymph % (Auto) [place]asper % (Auto) Eos % (Auto) Baso % (Auto) Neut # (Auto) Lymph # (Auto) [place]asper # (Auto) Eos # (Auto) Baso # (Auto) Total Counted Immature Gran % Nucleated RBC % Immature Gran # Segmented Neutrophils Band Neutrophils Lymphocytes Monocytes Nucleated RBCs # Platelet Estimate Hypochromasia Mari[place] Cells Elliptocytes Morphology Comment INR PT Patient/Control Mix D-Dimer, Quantitative Sodium Potassium Chloride Carbon Dioxide Anion Gap BUN Creatinine GFR Calculation BUN/Creatinine Ratio Glucose POC Glucose Calculated Osmolality Calcium Troponin I 0.498 H Urine Color Yellow Urine Appearance Cloudy Urine pH 6.0 Ur Specific [place] 1.014 Urine Protein 30 Urine Glucose (UA) Negative Urine Ketones 20 Urine Blood Moderate Urine Nitrate Negative Urine Bilirubin Negative Urine Urobilinogen < 2.0 H Urine Leukocytes Small H Urine RBC 332 Urine WBC 22 Urine WBC Clumps Few Ur Squamous Epith Cells Occasional Urine Bacteria Occasional Ur Culture Indicated? Results to follow Vancomycin Peak Vancomycin Trough - Diagnostic Findings Procedure: Chest x-ray: report reviewed by me, image reviewed by me - EKG EKG results: interpreted by me EKG shows: atrial fibrillation (controlled rate 70's) Quality Measures - VTE Contraindication to Pharmacological VTE Prophylaxis: Coagulopathy I, David Alba MD, personally performed the services described in this documentation, ascribed by Brenda Casanova RN in my presence, and it is both accurate and complete .
[2016-05-31] MEDS ORDERED: SODIUM CHLORIDE 0.9% 250 ML IV PRN (12:27)
--- NOTE | 2016-05-31 12:29 | Electrophysiology Consultation ---
History of Present Illness - Data of Consult Patient: new to practice Consult date: 05/31/16 Requesting Physician: David Alba - Consult Narrative Reason for consult: Syncope, niecy History of present illness: Ms. Sullivan is a 89 year old female with permanent AF, HTN, s/p aortic valve replacement, COPD, gout, dyslipidemia. She is on chronic anticoagulation with Coumadin and is routinely followed, per her report, by a tube operator in [place], Dr. Ulloa. Patient lives in [place], and she is currently here visiting family. Presented to the ER on 05/26/16 with complaints of shortness of breath, fever, and chills, palpitations. Last night she had an asystolic arrest, which resolved with CPR. She has a C6 fracture, now in collar. BC is growing gram+ bugs, WBC is >20. Telemetry shows af, frequent pauses, up to several seconds. These arew symptomatic. She had prior presyncopal spells. EKG: AF, IVCD. She was on metoprolol for rate control, now held. INR 5.3. Normal Plt At baseline, she is quite independent and ambulatory. She is awake, oriented, cooperative. CC: Krzysztof Franz MD - Home Medications and Allergies Home Medications: Home Medications Medication Instructions Recorded Confirmed Type Allopurinol 300 mg PO DAILY 05/29/16 05/29/16 History Aspirin [Ecotrin] 81 mg PO DAILY 05/29/16 05/29/16 History Atorvastatin [Lipitor] 5 mg PO QPM 05/29/16 05/29/16 History Calcium (Carbonate) [Oscal 500] 500 mg PO BID 05/29/16 05/29/16 History Fluticasone/Salmeterol 250-50 1 puff INH BID 05/29/16 05/29/16 History [Advair 250-50] Furosemide Tab [Lasix Tab] 20 mg PO BID 05/29/16 05/29/16 History Meloxicam [Mobic] 7.5 mg PO BID PRN 05/29/16 05/29/16 History Metoprolol Tartrate 50 mg PO BID 05/29/16 05/29/16 History Vit C/Selvin AC/Lut/Copper/Znox 1 each PO BID 05/29/16 05/29/16 History [Preservision Lutein Softgel] Warfarin [Coumadin] 3 mg PO QPM 05/29/16 05/29/16 History amLODIPine [Norvasc] 5 mg PO QPM 05/29/16 05/29/16 History diltiaZEM HCl [Diltiazem HCl] 120 mg PO DAILY 05/29/16 05/29/16 History Allergies/Adverse Reactions: Allergies Allergy/AdvReac Type Severity Reaction Status Date / Time sulfamethoxazole Allergy Severe RASH Verified 05/31/16 12:31 [From Bactrim] trimethoprim [From Bactrim] Allergy Severe RASH Verified 05/31/16 12:31 lisinopril Allergy Mild ITCHING Verified 05/31/16 12:31 Medical,Surgical,& Family Hx - Medical History Cardio: History of: Cardiac Dysrhythmia (chronic atrial fib), Hypertension, Valvular Heart Disease () No history of: Congenital Heart Disease, CHF Psychological: No history of: Depression Neurology: No history of: Dementia, Seizures, TIA HEENT: History of: Eye Problem Endocrine: History of: Dyslipidemia No history of: Diabetes Mellitus (IDDM), Diabetes Mellitus (NIDDM), Thyroid Disorder Rheumatology: History of;: Gout Respiratory: History of: COPD Genitourinary: History of: Kidney Stones Gastrointestinal: No history of: Esophageal Varices, Hepatitis Musculoskeletal: History of: Degenerative Disk Disease Hematology: No history of: Anemia - Surgical History Cardiac Surgeries: Sugical HX of: Cardiac Surgery Patient Denies: Cardiac Catheterization, Carotid Endarterectomy HEENT Surgeries: Patient denies: Carotid Endarterectomy Orthopedic Surgeries: Patient denies;: Spinal Surgery - Family History Family History: Reports;: Family Stroke (MOTHER) Denies;: Additional Family History - Social History Smoking Status: Never smoker Frequency of Alcohol Use: None Type of Drug Use: None 12 point system: reviewed and no additional remarkable complaints except as stated Exam - Constitutional Vitals: Period Temp Pulse Resp BP Sys/Fitzgerald Pulse Ox Last 24 Hr 97.0 F-98.8 F 48-97 12-34 119-160/66-78 90-99 General appearance: normal weight - Head Head exam: Present: normal inspection - Eye Eye exam: Absent: conjunctival injection Pupils: Absent: dilated - ENT ENT exam: Present: normal external ear exam - Neck Neck exam: Present: normal inspection - Respiratory Respiratory exam: Present: clear to auscultation bilaterally - Cardiovascular Cardiovascular exam: Present: bradycardia, irregular rhythm, systolic murmur - GI/Abdominal GI/Abdominal exam: Present: normal bowel sounds - Extremities Exam Extremities exam: Present: normal inspection, normal capillary refill. Absent: edema - Back Exam Back exam: Present: normal inspection - Neurological Exam Neurological exam: Present: alert, oriented X3 - Psychiatric Psychiatric exam: Present: normal affect, normal mood - Skin Skin exam: Present: normal color, warm. Absent: cyanosis Results - Labs CBC & BMP: 05/31/16 05:59 05/31/16 05:59 Lab Results: I have reviewed the past 24 hour labs Assessment and Plan (1) Cardiac asystole Status: Acute Assessment and plan: 89-year-old female, with permanent atrial fibrillation, status post aortic valve replacement, syncope, likely due to bradycardia. Gram-positive sepsis. -Bradycardia, syncope. Risk of recurrence very high, has IVCD with frequent long pauses. She already had aborted cardiac arrest. She will need a PM. She is currently septic, Gram-positive. I recommend to proceed with a temporary wire. Also, INR is high. We discussed risks and benefits of management options , she agrees to proceed with temp PM. -Type&screen, 2 FFP's stat, follow INR. Would keep in 2-3 range. -Echo, assess AVR function. High risk for endocarditis -Hold BB for now. May resume once protected from bradycardia and BP acceptable -NPO Current Visit: Yes (2) Atrial fibrillation Status: Acute Current Visit: Yes Qualifiers: Atrial fibrillation type: chronic Qualified Code(s): I48.2 - Chronic atrial fibrillation (3) Dyslipidemia Status: Acute Current Visit: Yes (4) Fever Status: Acute Current Visit: Yes (5) HTN (hypertension) Status: Acute Current Visit: Yes (6) Syncope, cardiogenic Status: Acute Current Visit: Yes (7) Urinary tract infection Status: Acute Current Visit: Yes Qualifiers: Urinary tract infection type: site unspecified Hematuria presence: without hematuria Qualified Code(s): N39.0 - Urinary tract infection, site not specified (8) Valvular disease Status: Acute Current Visit: Yes (9) Gout Status: Acute Current Visit: No (10) H/O aortic valve replacement Status: Acute Current Visit: No Quality Measures - VTE Contraindication to Pharmacological VTE Prophylaxis: Coagulopathy
[2016-05-31] MEDS ORDERED: LIDOCAINE 1% 20 ML VIAL ONE (12:37)
[2016-05-31] MEDS ORDERED: HEPARIN/NACL 0.9% 2 UNITS/ML 500 ML IV ONE ×2 (12:37→12:47)
[2016-05-31] MEDS ORDERED: MIDAZOLAM 2 MG/2 ML VIAL ONE (12:48)
[2016-05-31] MEDS ORDERED: fentaNYL 100 MCG/2 ML VIAL ONE (12:48)
--- NOTE | 2016-05-31 12:50 | History and Physical Update ---
Sedation H&P Update - History and Physical H&P was reviewed, the patient examined and there: are no changes in the patients condition since last H&P was completed. - Dictation Physical: refer to H&P completed by admitting physician - Physical Exam Mental Status: alert and oriented Heart: other (irreg, niecy) Lung: clear to auscultation Abdomen: within normal limits Vitals: within normal limits - Sedation Plan for Sedation: moderate Patient Consent: Procedure disscussed with patient and patinet has consented., Risks and benefits were discussed with patient,including infection,, bleeding, injury to surrounding structures, seizure, temporary nerve, Patient understands and accepts potential risks/benefits and agrees to ASA Class: IV Airway Assessment: Class II: Soft palate, uvula, fauces visible
--- NOTE | 2016-05-31 13:12 | Electrophysiology Report ---
Date of Procedure:: 05/31/16 Pre-op diagnosis: AF, niecy, asystolic cardiac arrest, sepsis Post-op diagnosis: same Procedure: PROCEDURAL SUMMARY Temporary pacemaker implant from right femoral vein access. Successful procedure, no complications. PLAN Bed rest, keep flat. Continue abx for G+ sepsis CXR stat DIAGNOSES AF, niecy S/p Bradycardiac arrest Syncope S/p AVR PROCEDURE REPORT A timeout was performed before the procedure. The patient was continuously monitored by electrocardiography, pulse oximetry and NIBP. Sedation Conscious sedation was initiated with Versed + Fentanyl and maintained during the procedure. Access The Seldinger technique was performed utilizing a 21 gauge micropuncture needle and 0.[address] the following sheaths. RFV: 7 Fr Temporary PM placement The patient was prepped and draped according to the EP protocol. The temporary PM was advanced into the RV under fluoroscopic guidance. Measurement with the external PM confirmed adequate sensing and pacing threshold. The sheath was sutured to the skin, the temporary wire was looped around and secured the skin, then sterile dressing was placed over the insertion site. Fluoroscopy confirmed temporary PM wire position in the RV, no change in heart borders. The patient left the laboratory in good condition. Anesthesia: moderate conscious sedation Surgeon / Physician: Jason Palacios Estimated blood loss: none Specimens: none sent Condition: critical Disposition: ICU/CCU
--- NOTE | 2016-05-31 14:01 | XRay Report ---
Portable chest Date: 05/31/2016 Clinical history: Fever after pacemaker implantation Comparison: 05/31/2016 Technique: Portable AP sitting chest Findings: Stable cardiomegaly with prior median sternotomy. Diffuse calcification in the wall of the tortuous and dilated aorta. Evidence temporary pacemaker entering from the femoral route with the tip in the right atrium. Chronic scarring in the lungs with atelectasis/infiltration in the left mid to lower lung zone. No pneumothorax. Degenerative changes are noted. Impression: Status post median sternotomy with stable cardiomegaly. No pneumothorax with temporary pacemaker injecting in the right atrium. Minimal atelectasis/infiltration in the left mid to lower lung zone. PROCEDURE INTERPRETED AT [facility] DEPARTMENT OF RADIOLOGY Final Report Signed by: Dr. Ladan Pierce
--- NOTE | 2016-05-31 15:02 | History and Physical Update ---
Sedation H&P Update - History and Physical H&P was reviewed, the patient examined and there: are no changes in the patients condition since last H&P was completed. - Dictation Physical: refer to H&P completed by admitting physician - Physical Exam Mental Status: alert and oriented Heart: other (Bradycardic with loss of capture temporary pacemaker) Lung: clear to auscultation Abdomen: within normal limits - Sedation Plan for Sedation: moderate Patient Consent: Procedure disscussed with patient and patinet has consented., Risks and benefits were discussed with patient,including infection,, bleeding, injury to surrounding structures, seizure, temporary nerve, Patient understands and accepts potential risks/benefits and agrees to, proceed. ASA Class: IV Airway Assessment: Class II: Soft palate, uvula, fauces visible
--- NOTE | 2016-05-31 15:35 | Cardiology Operative Report ---
Date of Procedure:: 05/31/16 Pre-op diagnosis: AF, niecy, asystolic cardiac arrest, sepsis Post-op diagnosis: same Procedure: Ms. Sullivan came to the lab earlier today with a supratherapeutic INR after having an asystolic arrest for transvenous temporary pacemaker by Dr. Palacios. The patient's INR was supratherapeutic and she has positive blood cultures. While in the ICU the patient lost capture and had significant pauses. The patient was discussed with Dr. Fredrick Alba via the phone and brought back to the [employer] [facility] for repositioning of the temporary pacemaker. The patient was interviewed and examined on the gurney in the [employer]. Patient placed on the cardiac catheterization table timeout was recorded. Fluoroscopy demonstrated the previously placed pacemaker was back into the right atrium. This device was removed from the body after the area was prepped and draped in the best sterile fashion possible. At this time a new transvenous temporary pacemaker with a protective sleeve was advanced under fluoroscopy with balloon flow tip directed to the apex of the right ventricle. In the AP imaging this appeared to reach the apex. In an [place] view it appeared to be directed toward the interventricular septum. The device was adjusted and walk down capture was lost at a 0.6 volts intermittently. Capture was consistent at 0.8 V. The device was then turned to output of 1.5 V and a backup rate of 60 bpm. The markers on the flow balloon tip directed catheter was at 60 cm at the sheath tip. The protective sheath was used to cover the externalized portion of the pacing wire. It was sewn 3 to the patient's right thigh. No medications were given for conscious conscious sedation or pain relief the patient was awake and talking through the entire procedure. There were no apparent complications. Implants: 110 cm [place] temporary pacing wire through previously deployed sheath in the right femoral vein Surgeon / Physician: Radha Owens Slot Ambassador: none Estimated blood loss: none Specimens: none sent Condition: critical Disposition: ICU/CCU
--- NOTE | 2016-05-31 16:10 | Event Note ---
Patient gone for cardiac cath
--- NOTE | 2016-05-31 17:33 | ECHO Report ---
Gisele Sullivan Exam Date: 05/31/2016 16:19 Referring Physician: Technologist: Keila JOHNSON Age: 89 Ht (in): Wt (lb): Gender: F Exam Location: [facility] Echo Indications: acute resp. distress, HTN, Fever, a fib, AVR, syncope BP: / HR: Rhythm: Sinus Technical Quality: IMPRESSIONS Normal left ventricular size, with moderate concentric hypertrophy. Normal systolic function, estimated left ventricular ejection fraction 55%. Mildly increased right ventricular size, with mildly decreased systolic function. Moderate biatrial enlargement. Mitral annular calcification. Thickened mitral valve with moderate regurgitation and borderline stenosis. Bioprosthetic aortic valve, with sclerosis, without stenosis, with trace insufficiency. Severe tricuspid regurgitation with pulmonary hypertension. No valvular vegetations visualized. Consider FREEDOM if clinically indicated. MEASUREMENTS (Male / Female) Normal Values 2D ECHO LV Diastolic Diameter PLAX 4.1 cm 4.2 - 5.9 / 3.9 - 5.3 cm LV Systolic Diameter PLAX 3.1 cm LV Fractional Shortening PLAX 24.2 % IVS Diastolic Thickness 1.3 cm 0.6 - 1.0 / 0.6 - 0.9 cm LVPW Diastolic Thickness 1.4 cm 0.6 - 1.0 / 0.6 - 0.9 cm RV Internal Dim ED PLAX 3.7 cm Aortic Root Diameter 2.4 cm LA Systolic Diameter LX 5.2 cm 3.0 - 4.0 / 2.7 - 3.8 cm DOPPLER TR Peak Velocity 312.0 cm/s TR Peak Gradient 38.9 mmHg FINDINGS Left Ventricle Normal left ventricular size, with moderate concentric hypertrophy. Normal systolic function, estimated left ventricular ejection fraction 55%. Unable to assess diastolic function due to valvular disease, arrhythmia. Right Ventricle Mildly increased right ventricular size, with mildly decreased systolic function. TAPSE 13 mm. Right Atrium Moderately dilated right atrium. Left Atrium Moderately dilated left atrium. Mitral Valve Mitral annular calcification. Thickened mitral valve. Moderate concentric regurgitation. Borderline stenosis. Calculated MVA 2.3 cm2, average PHT in AF 94 ms. Mild mitral annular calcification. Moderate mitral valve regurgitation. Aortic Valve The aortic valve appears to be bioprosthetic, with sclerosis. Trace insufficiency. Systolic gradient peak 47, mean 22 mmHg. Peak aortic velocity 3.42 m/s, VTI 63.2 cm. Peak outflow velocity 1.99 m/s, VTI 41.9 cm. LVOT 2cm. Calculated AUGUSTINE 2.0 cm2. Tricuspid Valve Morphologically normal tricuspid valve. Severe tricuspid valve regurgitation. Tricuspid regurgitation velocities suggest a PAP of 39 mmHg + RAP - this may be underestimeted due to the severity of regurgitation. Pulmonic Valve Morphologically normal pulmonic valve. Mild pulmonary valve regurgitation. Pericardium No pericardial effusion. Aorta Poorly visualized. Jason Palacios (Electronically Signed) Final Date: 31 May 2016 17:31
[2016-05-31] MEDS: cefTRIAXone 1,000 MG in SODIUM CHLORIDE 0.9% 100 ML IV SCH (17:36)
--- NOTE | 2016-05-31 18:10 | Orthopedic Consult Note ---
History of Present Illness Chief complaint: possible cervical spine fracture evaluation History of present illness: Ms. Sullivan is a 89 year old female who fell this morning while going to the bathroom. The patient had a syncopal episode. She has had a temporary pacemaker place and then has had that revised. She has had mild cervical pain in the past. She currently is complaining about the cervical collar and is not having any neck pain. She also has a gram-positive cocci UTI and bacteremia. Exam shows no pain with range of motion of her cervical spine. She is nontender. Sensation is intact to her upper and lower extremities to light touch globally. Strength in her arms and lower extremities are 5 out of 5. Exam proximal motors right lower extremity was limited because of her temporary pacer. Radiographs CT spine showed diffuse spondylosis. There is an age indeterminate fracture of an anterior osteophyte of C6. Impression: Cervical spondylosis. Age indeterminant anterior osteophyte fracture C6. Plan: Based on her exam this evening, I doubt that she sustained a fracture in this morning's fall. Even if the fracture was sustained this morning, the fracture does not affect the stability of her cervical spine. The hard collar can be stopped. If she does develop neck pain, a soft collar can be used as needed. Home Medications Medication Instructions Recorded Confirmed Type Allopurinol 300 mg PO DAILY 05/29/16 05/29/16 History Aspirin [Ecotrin] 81 mg PO DAILY 05/29/16 05/29/16 History Atorvastatin [Lipitor] 5 mg PO QPM 05/29/16 05/29/16 History Calcium (Carbonate) [Oscal 500] 500 mg PO BID 05/29/16 05/29/16 History Fluticasone/Salmeterol 250-50 1 puff INH BID 05/29/16 05/29/16 History [Advair 250-50] Furosemide Tab [Lasix Tab] 20 mg PO BID 05/29/16 05/29/16 History Meloxicam [Mobic] 7.5 mg PO BID PRN 05/29/16 05/29/16 History Metoprolol Tartrate 50 mg PO BID 05/29/16 05/29/16 History Vit C/Selvin AC/Lut/Copper/Znox 1 each PO BID 05/29/16 05/29/16 History [Preservision Lutein Softgel] Warfarin [Coumadin] 3 mg PO QPM 05/29/16 05/29/16 History amLODIPine [Norvasc] 5 mg PO QPM 05/29/16 05/29/16 History diltiaZEM HCl [Diltiazem HCl] 120 mg PO DAILY 05/29/16 05/29/16 History Allergies Allergy/AdvReac Type Severity Reaction Status Date / Time sulfamethoxazole Allergy Severe RASH Verified 05/31/16 12:31 [From Bactrim] trimethoprim [From Bactrim] Allergy Severe RASH Verified 05/31/16 12:31 lisinopril Allergy Mild ITCHING Verified 05/31/16 12:31 Medical,Surgical,& Family Hx - Medical History Cardio: History of: Cardiac Dysrhythmia (chronic atrial fib), Hypertension, Valvular Heart Disease () No history of: Congenital Heart Disease, CHF Psychological: No history of: Depression Neurology: No history of: Dementia, Seizures, TIA HEENT: History of: Eye Problem Endocrine: History of: Dyslipidemia No history of: Diabetes Mellitus (IDDM), Diabetes Mellitus (NIDDM), Thyroid Disorder Rheumatology: History of;: Gout Respiratory: History of: COPD Genitourinary: History of: Kidney Stones Gastrointestinal: No history of: Esophageal Varices, Hepatitis Musculoskeletal: History of: Degenerative Disk Disease Hematology: No history of: Anemia - Surgical History Cardiac Surgeries: Sugical HX of: Cardiac Surgery Patient Denies: Cardiac Catheterization, Carotid Endarterectomy HEENT Surgeries: Patient denies: Carotid Endarterectomy Orthopedic Surgeries: Patient denies;: Spinal Surgery - Family History Family History: Reports;: Family Stroke (MOTHER) Denies;: Additional Family History - Social History Smoking Status: Never smoker Frequency of Alcohol Use: None Type of Drug Use: None Exam - Constitutional Vitals: Period Temp Pulse Resp BP Sys/Fitzgerald Pulse Ox Last 24 Hr 97.0 F-98.8 F 48-97 12-34 119-163/66-80 90-99 Results - Labs CBC & BMP: 05/31/16 05:59 05/31/16 05:59 Assessment and Plan (1) C6 cervical fracture Status: Chronic Current Visit: Yes Qualifiers: Encounter type: initial encounter Fracture type: closed Fracture alignment: nondisplaced (2) Cervical spondylosis Status: Chronic Current Visit: Yes Qualifiers: 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
[2016-05-31] MEDS: ATORVASTATIN 10 MG TABLET PO SCH (21:13)
[2016-05-31 21:49] LABS: Magnesium 1.7 MG/DL (1.8-2.4); Potassium 3.8 MMOL/L (3.5-5.1)
[2016-05-31] MEDS ORDERED: MAGNESIUM SULF RIDER 4 GM in PREMIX 1 EACH IV PRN (22:08)
[2016-05-31] MEDS ORDERED: MAGNESIUM SULF RIDER 2 GM in PREMIX 1 EACH IV PRN (22:08)
[2016-06-01] MEDS ORDERED: DILTIAZEM 60 MG TABLET PO SCH ×2 (00:09→00:12)
[2016-06-01] MEDS: SODIUM CHLORIDE 0.9% 1,000 ML IV SCH ×2 (00:10→05:54)
[2016-06-01] MEDS: DILTIAZEM 60 MG TABLET PO SCH ×4 (00:21→21:26)
[2016-06-01 05:24] LABS: PT Patient Result 70.6 SECS
[2016-06-01 05:26] LABS: INR 5.9
[2016-06-01] MEDS: VANCOMYCIN INJ 1,000 MG in SODIUM CHLORIDE 0.9% 250 ML IV SCH (05:44)
[2016-06-01] MEDS ORDERED: SODIUM CHLORIDE 0.9% 250 ML IV PRN (06:28)
[2016-06-01] MEDS ORDERED: PHYTONADIONE 5 MG TABLET PO STA (07:36)
[2016-06-01] MEDS ORDERED: FUROSEMIDE 20 MG/2 ML VIAL IV ONE (07:38)
--- NOTE | 2016-06-01 07:41 | Electrophysiology Progress Not ---
Assessment and Plan (1) Cardiac asystole Status: Acute Assessment and plan: 89-year-old female, with permanent atrial fibrillation, status post aortic valve replacement, syncope, likely due to bradycardia. Gram-positive sepsis, UTI. 3/: RVF temp PM implant, then reposition -AF, IVCD, intermittent AVB, s/p critical bradycardia. Keep temporary pacer in place. She is high risk for complications. As soon as the infectious risks are acceptable, a permanent device will be preferred. -Check CBC/BMP/magnesium, PT/INR, PTT, fibrinogen, LFTs today. -1 mg of vitamin K stat. Recheck INR in PM. Still high despite 4 FFPs. If labs suggest DIC, will need to be addressed. Keep her INR between 2-3 range. High risk of bleeding compl from temporary PM, but also has A. fib. The AVR is bioprosthetic. -E. faecalis UTI and GPC sepsis. Recommend to repeat the blood cultures tomorrow, if WBC trending down and she is afebrile. If those cultures remain negative until Saturday, we could pursue a permanent pacemaker implant and temporary pacemaker explant at that time. If she continues to be septic, a semipermanent, externalized device may be an option, to enable mobilization and could be used until a permanent device can be implanted. -Cont CCB for rate control -CHF. DC IV fluids. Lasix 20 mg IV now. Monitor I's and O's. Avoid volume overload. -Soft diet -Keep in the ICU Current Visit: Yes (2) Atrial fibrillation Status: Acute Current Visit: Yes Qualifiers: Atrial fibrillation type: chronic Qualified Code(s): I48.2 - Chronic atrial fibrillation (3) Dyslipidemia Status: Acute Current Visit: Yes (4) Fever Status: Acute Current Visit: Yes (5) HTN (hypertension) Status: Acute Current Visit: Yes (6) Syncope, cardiogenic Status: Acute Current Visit: Yes (7) Urinary tract infection Status: Acute Current Visit: Yes Qualifiers: Urinary tract infection type: site unspecified Hematuria presence: without hematuria Qualified Code(s): N39.0 - Urinary tract infection, site not specified (8) Valvular disease Status: Acute Current Visit: Yes (9) Gout Status: Acute Current Visit: No (10) H/O aortic valve replacement Status: Acute Current Visit: No Electrophysiology Subjective Interval history: She is tachypneic and short of breath. Mild respiratory distress. I/O+, IV fluids were continued overnight. Appropriate temporary pacing on telemetry. Atrial fibrillation. Temp still up to 100 yesterday. INR still >5. No other labs today. The C6 fracture was determined not be unstable, the collar was taken off. No groin hematoma. Exam - Constitutional Vitals: Period Temp Pulse Resp BP Sys/Fitzgerald Pulse Ox Last 24 Hr 97.0 F-100.1 F 60-112 10-35 119-178/69-94 90-100 General appearance: over weight - Head Head exam: Present: normal inspection - Eye Eye exam: Absent: conjunctival injection Pupils: Absent: dilated - ENT ENT exam: Present: normal external ear exam - Neck Neck exam: Present: normal inspection - Respiratory Respiratory exam: Present: clear to auscultation bilaterally, decreased breath sounds - Cardiovascular Cardiovascular exam: Present: irregular rhythm - GI/Abdominal GI/Abdominal exam: Present: normal bowel sounds - Extremities Exam Extremities exam: Present: normal inspection, normal capillary refill, edema (1+ ) - Neurological Exam Neurological exam: Present: alert, oriented X3 - Psychiatric Psychiatric exam: Present: normal affect, normal mood - Skin Skin exam: Present: normal color, warm. Absent: cyanosis Results - Labs CBC & BMP: 05/31/16 05:59 05/31/16 20:51 Lab Results: I have reviewed the past 24 hour labs Quality Measures - VTE Contraindication to Pharmacological VTE Prophylaxis: Coagulopathy
[2016-06-01 08:01] LABS: Basophils # 0.1 10*3/uL (0.0-0.2); Basophils % 0.3 % (0.0-0.8); Eosinophils % 0.2 % (0.00-10.9); Hematocrit 31.4 VOL% (35.7-47.0); Hemoglobin 10.3 GM/DL (12.0-16.0); Immature Granulocytes % 1.5 %; Immature Granulocytes Absolute 0.27 #; Lymphocytes % 5.5 % (21.3-54.2); Mean Corpuscular HGB Conc 32.8 GM/DL (32-36); Mean Corpuscular Hemoglobin 28 PG (27-34); Mean Corpuscular Volume 86.5 FL (87-102); Mean Platelet Volume 11.1 FL (9.6-12.0); Monocytes # 1.3 10*3/uL (0.11-0.8); Monocytes % 7.5 % (1.7-12.7); Platelet Count 202 T/CUMM (130-400); Red Blood Count 3.63 MC/CUMM (3.8-5.5); Red Cell Distribution Width 14.7 % (9.3-17.3); White Blood Count 17.7 T/CUMM (4-12)
[2016-06-01 08:26] LABS: Albumin 2.6 G/DL (3.4-5.0); Bilirubin,Total 0.7 MG/DL (0.2-1.0); Calcium 8.9 MG/DL (8.5-10.1); Osmolality,Calculated 284.8 MOS/KG (273-304); Potassium 3.5 MMOL/L (3.5-5.1); Total Protein 5.4 G/DL (6.4-8.3)
[2016-06-01 08:30] LABS: INR 6.3
[2016-06-01] MEDS: CALCIUM (CARBONATE) 500 MG TABLET PO SCH ×2 (08:30→21:27)
[2016-06-01] MEDS: FLUTICASONE/SALMETEROL 250-50 DISKUS 14 DOSE INH SCH ×2 (08:31→21:20)
[2016-06-01] MEDS: ALLOPURINOL 300 MG TABLET PO SCH (08:31)
[2016-06-01] MEDS: ASPIRIN EC 81 MG TABLET PO SCH (08:31)
[2016-06-01] MEDS: MULTIVITAMIN (OCUVITE) TABLET PO SCH ×2 (08:31→21:27)
[2016-06-01] MEDS: PANTOPRAZOLE 40 MG TABLET PO SCH (08:31)
--- NOTE | 2016-06-01 09:02 | Cardiology Progress Note ---
Edilberto Gomes Vanessa RN, am scribing for, and in the presence of, David Alba MD 09:02. Assessment and Plan - Time spent with patient Time spent with patient: Less than 30 minutes (1) Atrial fibrillation Status: Acute Current Visit: Yes Qualifiers: Atrial fibrillation type: chronic Qualified Code(s): I48.2 - Chronic atrial fibrillation (2) Cardiac asystole Status: Acute Current Visit: Yes (3) H/O aortic valve replacement Status: Acute Current Visit: No (4) Urinary tract infection Status: Acute Assessment and plan: IV antibiotics. Defer management to hospitalist. Current Visit: Yes Qualifiers: Urinary tract infection type: site unspecified Hematuria presence: without hematuria Qualified Code(s): N39.0 - Urinary tract infection, site not specified (5) HTN (hypertension) Status: Chronic Assessment and plan: Lopressor continued upon admission. Norvasc has been held. Current Visit: Yes (6) Dyslipidemia Status: Acute Assessment and plan: FLP's noted. Continue current statin. Current Visit: Yes (7) Gout Status: Acute Assessment and plan: Defer management to hospitalist. Current Visit: No (8) Valvular disease Status: Acute Current Visit: Yes Cardiology - PN: Subj Interval history: Closely monitored in CCU. Rouses easily. Denies discomfort or SOB at this time. No further syncope while on bedrest and placement of temporary pacemaker yesterday afternoon. Atrial fibrillation with pacing noted at times, transient AV block. Temporary pacer in place, RFV. Rate 60, ventricular output 10, atrial output 1.5. Dr. Palacios is following patient also for permanent device implant in the future. INR is further increased today and is 5.9. Vitamin K given earlier this morning. Coumadin is held. IV Lasix given this morning to avoid fluid overload. WBC slight improvement to 17,700 today. Some hypertension, systolic BP 150-180. This patient has A. fib with prolonged pauses consistent with tachybradycardia. She will need to undergo permanent pacemaker placement. Her Coumadin has been held but her INR is up in decisions are being made related to when her pacemaker will be placed. Her temporary pacemaker is working well with that thresholds and is 0.8-1 range. I have increased her output to 2 mA. She is without complaints otherwise. I have discussed in detail the particulars of this case and I have examined the patient and reviewed the patient's chart both current and old. I was directly involved in the patient's evaluation and management and I completely agree with Brenda Casanova RN regarding this patient's evaluation and treatment plan. Exam (Progress Note) - Constitutional Vitals: Period Temp Pulse Resp BP Sys/Fitzgerald Pulse Ox Last 24 Hr 97.0 F-100.1 F 60-112 10-35 119-178/69-94 90-100 Exam: General: Present: No Apparent Distress, Other HEENT: Present: PERRL, Mucus Membranes Dry. Absent: Pallor Neck: Present: Supple Neck, Midline Trachea, No Bruit Cardiac: Present: Irregularly Regular, Systolic Murmur. Absent: Tachycardia, Bradycardia Lungs: Present: Clear Ascult./Percussion, Oxygen, No Wheeze, Rales, Rhonchi Neuro: Present: Grossly Intact. Absent: Resting Tremor, Essential Tremor Abdomen: Present: Soft, Active Bowel Sounds. Absent: Ascites, Tender Skin: Present: Other (laceration to forehead with some bruising, small lac to bridge of nose) Musculoskeletal: Present: No Fluid Collection. Absent: Normal Range of Motion Extremities: Present: No Cyanosis, No Edema, Normal Upper Extr. Pulses (2+ bilaterally), Normal Lower Extr. Pulses (2+ bilaterally), Capillary Refill ( normal) Result/EKG - Labs CBC & BMP: 06/01/16 07:45 06/01/16 07:45 Lab Results: I have reviewed the past 24 hour labs Labs: Laboratory Results - last 24 hr 05/31/16 05/31/16 06/01/16 05:59 20:51 04:41 INR 5.9 H* PT Patient/Control Mix 70.6 Potassium 3.8 Magnesium 1.7 L Blood Type A POSITIVE Antibody Screen Negative - EKG EKG results: interpreted by me EKG shows: atrial fibrillation Quality Measures - VTE Contraindication to Pharmacological VTE Prophylaxis: Coagulopathy IParth Wesley, MD, personally performed the services described in this documentation, ascribed by Brenda Casanova RN in my presence, and it is both accurate and complete .
[2016-06-01] MEDS: AMPICILLIN/SULBACTAM 3,000 MG in SODIUM CHLORIDE 0.9% 100 ML IV SCH ×3 (09:27→21:19)
[2016-06-01] MEDS: ACETAMINOPHEN 325 MG TABLET PO PRN ×2 (09:28→21:27)
--- NOTE | 2016-06-01 10:21 | Hospitalist Progress Note ---
Assessment and Plan (1) Syncope, cardiogenic Status: Acute Assessment and plan: Patient now has a transvenous pacer. She does appears to be sent some intrinsic beats on editor. Vital signs are stable. Mentating well and does not have noted dizziness while laying in bed. Current Visit: Yes (2) Atrial fibrillation Status: Acute Assessment and plan: Continue current medications cardiology will comment to the patient. Current Visit: Yes Qualifiers: Atrial fibrillation type: chronic Qualified Code(s): I48.2 - Chronic atrial fibrillation (3) Urinary tract infection Status: Acute Assessment and plan: This is now known to be Enterococcus faecalis in the urine blood culture isolate is not fully identified. Antibiotics have been switched to Unasyn and gentamicin. Please refer to the orders written for the rectus of care will have a repeat urine done today to have repeat blood cultures done today Current Visit: Yes Qualifiers: Urinary tract infection type: site unspecified Hematuria presence: without hematuria Qualified Code(s): N39.0 - Urinary tract infection, site not specified Hospitalist: Subjective Interval history: Patient has been seen interviewed and examined. Though she looks tired as appropriate, tube output. Changes from yesterday that now she does have a transvenous pacemaker. Noticed that she is receiving fresh frozen plasma because international normalizing ratio is with quite high. But there is no bleeding. We will continue the infusion as it was ordered by my colleagues overnight. Repeat PT/INR in the morning. Plan to implant permanent pacemaker is still in process. I took over the care of this patient yesterday but she had been transferred to the intensive care unit following a syncopal episode, observed S history, atrial fibrillation with controlled ventricular responses at the time of my assessment and she was having normal vital signs. She was admitted to the hospital for urinary tract infection; in the urine the isolate is proven to be Enterococcus faecalis that is sensitive to penicillin. The blood isolates has not yet been fully identified by the behavioral and solid medium is suggesting enterococcus too. Because the patient has valvular replacement my concern is possibility of valvular seeding with enterococcus. Will have repeat blood cultures today, discontinue vancomycin and just discontinue the cephalosporin. And will need coverage with the penicillin and the aminoglycosides. We will start her on Unasyn 3 g IV every 6 hours and gentamicin 200 mg IV daily. Will consult pharmacy for gentamicin pharmacokinetics and subsequent dosing. She will also need to have a repeat urinalysis and reflex cultures Exam - Constitutional Vitals: Period Temp Pulse Resp BP Sys/Fitzgerald Pulse Ox Last 24 Hr 97.0 F-101.5 F 60-112 10-35 134-178/69-94 94-100 General appearance: normal weight, other (Appears stated age) - Head Head exam: Present: other (Noted some abrasion on the forehead and the top of the front of the head. Patient has a history of a fall and traumatizing her head. Is no longer on hard neck: As recommended by orthopedics) - Eye Eye exam: Present: EOMI, other (Anicteric and no conjunctival petechia) Pupils: Present: NORI - ENT ENT exam: Present: normal oropharynx - Neck Neck exam: Present: other (I did not manipulate the neck but she can move freely. No JVD no bruits no thyromegaly) - Respiratory Respiratory exam: Present: clear to auscultation bilaterally, other (No wheezing no rhonchi mild fine rales at the bases) - Cardiovascular Cardiovascular exam: Present: irregular rhythm (Noted some paced beats and intrinsic beats) - GI/Abdominal GI/Abdominal exam: Present: normal bowel sounds, soft (No guarding no organomegaly) - Extremities Exam Extremities exam: Present: normal capillary refill, other (No edema generalized weakness but no focal neurologic deficits no joint effusions) - Back Exam Back exam: Present: normal inspection - Neurological Exam Neurological exam: Present: alert, oriented X3, CN II-XII intact - Psychiatric Psychiatric exam: Present: other (He looks tired and sleepy but able to for the compilation answer my questions and she is appropriate) - Skin Skin exam: Present: abrasion (On the head, no nasal discharge no ear discharge ( a history of a fall and hitting her head on a hard surface)) Results - Labs CBC & BMP: 06/01/16 07:45 06/01/16 07:45 Lab Results: I have reviewed the past 24 hour labs Quality Measures - VTE Contraindication to Pharmacological VTE Prophylaxis: Coagulopathy
[2016-06-01] MEDS: GENTAMICIN INJ 200 MG in SODIUM CHLORIDE 0.9% 100 ML IV SCH (10:24)
--- NOTE | 2016-06-01 10:51 | Neurology Consult Note ---
History of Present Illness History of present illness: Ms. Sullivan is a 89 year old female who while going to the bathroom. The patient had a syncopal episode. She has had a temporary pacemaker place and then has had that revised. She has had mild cervical pain in the past. She currently is complaining about the cervical collar and is not having any neck pain. She also has a gram-positive cocci UTI and bacteremia. CT of the cervical spine questionable inferior osteophyte fracture at C6. CT of the brain reveals no acute abnormalities either. She is moving all 4 extremities however limited in the right lower and left upper extremity due to temporary pacer and cardiac cath. She denies any pain. Home Medications Medication Instructions Recorded Confirmed Type Allopurinol 300 mg PO DAILY 05/29/16 05/29/16 History Aspirin [Ecotrin] 81 mg PO DAILY 05/29/16 05/29/16 History Atorvastatin [Lipitor] 5 mg PO QPM 05/29/16 05/29/16 History Calcium (Carbonate) [Oscal 500] 500 mg PO BID 05/29/16 05/29/16 History Fluticasone/Salmeterol 250-50 1 puff INH BID 05/29/16 05/29/16 History [Advair 250-50] Furosemide Tab [Lasix Tab] 20 mg PO BID 05/29/16 05/29/16 History Meloxicam [Mobic] 7.5 mg PO BID PRN 05/29/16 05/29/16 History Metoprolol Tartrate 50 mg PO BID 05/29/16 05/29/16 History Vit C/Selvin AC/Lut/Copper/Znox 1 each PO BID 05/29/16 05/29/16 History [Preservision Lutein Softgel] Warfarin [Coumadin] 3 mg PO QPM 05/29/16 05/29/16 History amLODIPine [Norvasc] 5 mg PO QPM 05/29/16 05/29/16 History diltiaZEM HCl [Diltiazem HCl] 120 mg PO DAILY 05/29/16 05/29/16 History Allergies Allergy/AdvReac Type Severity Reaction Status Date / Time sulfamethoxazole Allergy Severe RASH Verified 05/31/16 12:31 [From Bactrim] trimethoprim [From Bactrim] Allergy Severe RASH Verified 05/31/16 12:31 lisinopril Allergy Mild ITCHING Verified 05/31/16 12:31 12 point system: reviewed and no additional remarkable complaints except as stated Medical,Surgical,& Family Hx - Medical History Cardio: History of: Cardiac Dysrhythmia (chronic atrial fib), Hypertension, Valvular Heart Disease (2012- AVR) No history of: Congenital Heart Disease, CHF Psychological: No history of: Depression Neurology: No history of: Dementia, Seizures, TIA HEENT: History of: Eye Problem Endocrine: History of: Dyslipidemia No history of: Diabetes Mellitus (IDDM), Diabetes Mellitus (NIDDM), Thyroid Disorder Rheumatology: History of;: Gout Respiratory: History of: COPD Genitourinary: History of: Kidney Stones Gastrointestinal: No history of: Esophageal Varices, Hepatitis Musculoskeletal: History of: Degenerative Disk Disease Hematology: No history of: Anemia - Surgical History Cardiac Surgeries: Sugical HX of: Cardiac Surgery Patient Denies: Cardiac Catheterization, Carotid Endarterectomy HEENT Surgeries: Patient denies: Carotid Endarterectomy Orthopedic Surgeries: Patient denies;: Spinal Surgery - Family History Family History: Reports;: Family Stroke (MOTHER) Denies;: Additional Family History - Social History Smoking Status: Never smoker Frequency of Alcohol Use: None Type of Drug Use: None Exam - Constitutional Vitals: Period Temp Pulse Resp BP Sys/Fitzgerald Pulse Ox Last 24 Hr 97.0 F-101.5 F 60-112 10-35 120-178/69-94 94-100 Exam: GENERAL: Patient is in no acute distress. NECK: Neck is supple. There is no JVD. No carotid bruits present. No thyroid masses. CVS: First and second heart sounds are normal. There is no S3 present. Regular rate and rhythm. RESPIRATORY: Lungs are clear to auscultation without any rales or rhonchi. ABDOMEN: Soft and non-tender. Bowel sounds are present. There is no hepatosplenomegaly. EXT: There is no palpable edema. Peripheral pulses are present. Skin: No rashes Central Nervous system: General: Alert, awake and Oriented x 3 Speech: Fluent Comprehension: Intact and normal Facial expressions: Normal Cranial Nerves: CN1/Olfactory: Normal CN II/ Optic: Normal, Visual [place] unreliable CN III, and : NORI & EOMI CN V: Normal & intact CN VII: face is symmetric CNVIII: Normal CN XI/X/XI/XII: Intact and Normal Motor: Bulk and Tone is normal. Strength symmetrical Sensory: Grossly intact for all the modalities of PP, LT and temp sense Reflexes: 1+ and symmetrical Cerebellar function: Not tested Toes: Equivocal Gait: Not tested Results - Labs CBC & BMP: 06/01/16 07:45 06/01/16 07:45 Assessment and Plan (1) C6 cervical fracture Status: Chronic Assessment and plan: C6 osteophyte fracture. Asymptomatic at this time Recommend watchful observation Thank you for the consult Current Visit: Yes Qualifiers: Encounter type: initial encounter Fracture type: closed Fracture alignment: nondisplaced
--- NOTE | 2016-06-01 11:40 | Pain Management Consult Note ---
Assessment and Plan (1) C6 cervical fracture Status: Chronic Assessment and plan: Stable anterior osteophyte fragment by CT at C6, agree with Dr. Omalley's assessment and plan. No indication for intervention or concern for instability. She is without pain on no pain meds. Current Visit: Yes Qualifiers: Encounter type: initial encounter Fracture type: closed Fracture alignment: nondisplaced History of Present Illness Chief complaint: cervical fracture on studies History of present illness: Ms. Sullivan is a 89 year old female we are asked to see secondary to syncopal fall with ensuing CT revealing anterior osteophyte fracture at C6. She is currently without neck pain, good range of motion and no point tenderness over anterior C6. UE neuro intact. Chronic DDD noted multiple cervical levels but currently no pain. Home Medications Medication Instructions Recorded Confirmed Type Allopurinol 300 mg PO DAILY 05/29/16 05/29/16 History Aspirin [Ecotrin] 81 mg PO DAILY 05/29/16 05/29/16 History Atorvastatin [Lipitor] 5 mg PO QPM 05/29/16 05/29/16 History Calcium (Carbonate) [Oscal 500] 500 mg PO BID 05/29/16 05/29/16 History Fluticasone/Salmeterol 250-50 1 puff INH BID 05/29/16 05/29/16 History [Advair 250-50] Furosemide Tab [Lasix Tab] 20 mg PO BID 05/29/16 05/29/16 History Meloxicam [Mobic] 7.5 mg PO BID PRN 05/29/16 05/29/16 History Metoprolol Tartrate 50 mg PO BID 05/29/16 05/29/16 History Vit C/Selvin AC/Lut/Copper/Znox 1 each PO BID 05/29/16 05/29/16 History [Preservision Lutein Softgel] Warfarin [Coumadin] 3 mg PO QPM 05/29/16 05/29/16 History amLODIPine [Norvasc] 5 mg PO QPM 05/29/16 05/29/16 History diltiaZEM HCl [Diltiazem HCl] 120 mg PO DAILY 05/29/16 05/29/16 History Allergies Allergy/AdvReac Type Severity Reaction Status Date / Time sulfamethoxazole Allergy Severe RASH Verified 05/31/16 12:31 [From Bactrim] trimethoprim [From Bactrim] Allergy Severe RASH Verified 05/31/16 12:31 lisinopril Allergy Mild ITCHING Verified 05/31/16 12:31 Medical,Surgical,& Family Hx - Medical History Cardio: History of: Cardiac Dysrhythmia (chronic atrial fib), Hypertension, Valvular Heart Disease (2012- AVR) No history of: Congenital Heart Disease, CHF Psychological: No history of: Depression Neurology: No history of: Dementia, Seizures, TIA HEENT: History of: Eye Problem Endocrine: History of: Dyslipidemia No history of: Diabetes Mellitus (IDDM), Diabetes Mellitus (NIDDM), Thyroid Disorder Rheumatology: History of;: Gout Respiratory: History of: COPD Genitourinary: History of: Kidney Stones Gastrointestinal: No history of: Esophageal Varices, Hepatitis Musculoskeletal: History of: Degenerative Disk Disease Hematology: No history of: Anemia - Surgical History Cardiac Surgeries: Sugical HX of: Cardiac Surgery Patient Denies: Cardiac Catheterization, Carotid Endarterectomy HEENT Surgeries: Patient denies: Carotid Endarterectomy Orthopedic Surgeries: Patient denies;: Spinal Surgery - Family History Family History: Reports;: Family Stroke (MOTHER) Denies;: Additional Family History - Social History Smoking Status: Never smoker Frequency of Alcohol Use: None Type of Drug Use: None Quality Measures - VTE Contraindication to Pharmacological VTE Prophylaxis: Coagulopathy Exam - Constitutional Vitals: Period Temp Pulse Resp BP Sys/Fitzgerald Pulse Ox Last 24 Hr 97.0 F-101.5 F 60-112 10-35 120-178/69-94 94-100 Results - Labs CBC & BMP: 06/01/16 07:45 06/01/16 07:45
[2016-06-01 16:37] LABS: INR 2.7
[2016-06-01 16:39] LABS: PT Patient Result 30.1 SECS
[2016-06-01] MEDS: ATORVASTATIN 10 MG TABLET PO SCH (21:26)
[2016-06-02] MEDS: AMPICILLIN/SULBACTAM 3,000 MG in SODIUM CHLORIDE 0.9% 100 ML IV SCH ×4 (03:19→22:19)
[2016-06-02 05:02] LABS: Basophils # 0.1 10*3/uL (0.0-0.2); Basophils % 0.4 % (0.0-0.8); Eosinophils # 0.1 10*3/uL (0.0-0.87); Eosinophils % 0.4 % (0.00-10.9); Hemoglobin 10.4 GM/DL (12.0-16.0); Immature Granulocytes % 1.6 %; Immature Granulocytes Absolute 0.25 #; Lymphocytes # 1.3 10*3/uL (1.4-4.0); Lymphocytes % 8.3 % (21.3-54.2); Mean Corpuscular HGB Conc 33.5 GM/DL (32-36); Mean Corpuscular Hemoglobin 28 PG (27-34); Mean Corpuscular Volume 84.2 FL (87-102); Mean Platelet Volume 11.6 FL (9.6-12.0); Monocytes # 1.2 10*3/uL (0.11-0.8); Monocytes % 7.9 % (1.7-12.7); Neutrophils # 12.7 10*3/uL (1.4-7.4); Neutrophils % 81.4 % (38.7-73.9); Platelet Count 235 T/CUMM (130-400); Red Blood Count 3.68 MC/CUMM (3.8-5.5); Red Cell Distribution Width 14.6 % (9.3-17.3); White Blood Count 15.6 T/CUMM (4-12)
[2016-06-02 05:20] LABS: INR 1.9
[2016-06-02 05:37] LABS: Calcium 9.1 MG/DL (8.5-10.1); Magnesium 1.9 MG/DL (1.8-2.4); Osmolality,Calculated 284.8 MOS/KG (273-304); Potassium 3.1 MMOL/L (3.5-5.1)
[2016-06-02 05:38] LABS: Osmolality,Calculated 286.7 MOS/KG (273-304)
[2016-06-02 05:57] LABS: PT Patient Result 20.7 SECS
[2016-06-02] MEDS: POTASSIUM CHLORIDE RIDER 10 MEQ in PREMIX 1 EACH IV PRN ×5 (07:22→11:45)
--- NOTE | 2016-06-02 09:05 | Cardiology Progress Note ---
Assessment and Plan (1) Atrial fibrillation Status: Acute Assessment and plan: Overall, rate is controlled at this time. Anticoagulated with Coumadin. Cardizem has not been resumed since admission. /: Rhythm continues atrial fibrillation with pauses covered by temporary pacemaker. Current Visit: Yes Qualifiers: Atrial fibrillation type: chronic Qualified Code(s): I48.2 - Chronic atrial fibrillation (2) Cardiac asystole Status: Acute Assessment and plan: Patient is having significant pauses and this likely as a cause of her syncopal episode. She will need single-chamber pacing. We will ask Dr. Palacios to review I have discussed in detail the particulars of this case and I have examined the patient and reviewed the patient's chart both current and old. I was directly involved in the patient's evaluation and management and I completely agree with Brenda Casanova regarding this patient's evaluation and treatment plan. Current Visit: Yes (3) H/O aortic valve replacement Status: Acute Current Visit: No (4) Urinary tract infection Status: Acute Assessment and plan: IV antibiotics. Defer management to hospitalist. Current Visit: Yes Qualifiers: Urinary tract infection type: site unspecified Hematuria presence: without hematuria Qualified Code(s): N39.0 - Urinary tract infection, site not specified (5) HTN (hypertension) Status: Chronic Assessment and plan: Lopressor continued upon admission. Norvasc has been held. Current Visit: Yes (6) Dyslipidemia Status: Acute Assessment and plan: FLP's noted. Continue current statin. Current Visit: Yes (7) Gout Status: Acute Assessment and plan: Defer management to hospitalist. Current Visit: No (8) Valvular disease Status: Acute Current Visit: Yes Cardiology - PN: Subj Interval history: This patient has developed tachybradycardia with pauses. She received transvenous pacemaker 3 days ago. She has a threshold at 1.5 mA and her settings are 3 milliamps. She is stable otherwise doing well without significant complaints. She does have what appears to be urosepsis and is being treated for that. Exam (Progress Note) - Constitutional Vitals: Period Temp Pulse Resp BP Sys/Fitzgerald Pulse Ox Last 24 Hr 97.2 F-101.5 F 62-96 18-42 120-169/63-99 93-98 Exam: General: Present: No Apparent Distress, Other HEENT: Present: PERRL, Mucus Membranes Dry. Absent: Pallor Neck: Present: Supple Neck, Midline Trachea, No Bruit Cardiac: Present: Irregularly Regular, Systolic Murmur. Absent: Tachycardia, Bradycardia Lungs: Present: Clear Ascult./Percussion, Oxygen, No Wheeze, Rales, Rhonchi Neuro: Present: Grossly Intact. Absent: Resting Tremor, Essential Tremor Abdomen: Present: Soft, Active Bowel Sounds. Absent: Ascites, Tender Skin: Present: Other (laceration to forehead with some bruising, small lac to bridge of nose) Musculoskeletal: Present: No Fluid Collection. Absent: Normal Range of Motion Extremities: Present: No Cyanosis, No Edema, Normal Upper Extr. Pulses (2+ bilaterally), Normal Lower Extr. Pulses (2+ bilaterally), Capillary Refill ( normal) Result/EKG - Labs CBC & BMP: 06/02/16 04:23 06/02/16 04:23 Labs: Laboratory Results - last 24 hr 06/01/16 06/02/16 06/02/16 16:18 04:23 04:23 WBC 15.6 H RBC 3.68 L Hgb 10.4 L Hct 31.0 L MCV 84.2 L MCH 28 MCHC 33.5 RDW 14.6 Plt Count 235 MPV 11.6 Neut % (Auto) 81.4 H Lymph % (Auto) 8.3 L Twiggs % (Auto) 7.9 Eos % (Auto) 0.4 Baso % (Auto) 0.4 Neut # (Auto) 12.7 H Lymph # (Auto) 1.3 L Twiggs # (Auto) 1.2 H Eos # (Auto) 0.1 Baso # (Auto) 0.1 Immature Gran % 1.6 Nucleated RBC % 0.0 Immature Gran # 0.25 Nucleated RBCs # 0.00 INR 2.7 1.9 PT Patient/Control Mix 30.1 D 20.7 Sodium Potassium Chloride Carbon Dioxide Anion Gap BUN Creatinine GFR Calculation BUN/Creatinine Ratio Glucose Calculated Osmolality Calcium Magnesium 06/02/16 06/02/16 04:23 04:23 WBC RBC Hgb Hct MCV MCH MCHC RDW Plt Count MPV Neut % (Auto) Lymph % (Auto) Twiggs % (Auto) Eos % (Auto) Baso % (Auto) Neut # (Auto) Lymph # (Auto) Twiggs # (Auto) Eos # (Auto) Baso # (Auto) Immature Gran % Nucleated RBC % Immature Gran # Nucleated RBCs # INR PT Patient/Control Mix Sodium 144 145 Potassium 3.1 L 3.0 L Chloride 105 105 Carbon Dioxide 28 28 Anion Gap 14.1 15.0 BUN 8 8 Creatinine 0.50 L 0.50 L GFR Calculation 91 91 BUN/Creatinine Ratio 16.00 16.00 Glucose 110 H 108 H Calculated Osmolality 284.8 286.7 Calcium 9.1 9.0 Magnesium 1.9 Quality Measures - VTE Contraindication to Pharmacological VTE Prophylaxis: Coagulopathy
--- NOTE | 2016-06-02 09:16 | Hospitalist Progress Note ---
Assessment and Plan (1) Syncope, cardiogenic Status: Acute Assessment and plan: Patient now has a transvenous pacer. She does appears to be sent some intrinsic beats on dog boarder. Vital signs are stable. Mentating well and does not have noted dizziness while laying in bed. Current Visit: Yes (2) Atrial fibrillation Status: Acute Assessment and plan: Continue current medications cardiology will comment to the patient. Current Visit: Yes Qualifiers: Atrial fibrillation type: chronic Qualified Code(s): I48.2 - Chronic atrial fibrillation (3) Urinary tract infection Status: Acute Assessment and plan: This is now known to be Enterococcus faecalis in the urine blood culture isolate is not fully identified. Antibiotics have been switched to Unasyn and gentamicin. Please refer to the orders written for the rectus of care will have a repeat urine done today to have repeat blood cultures done today Current Visit: Yes Qualifiers: Urinary tract infection type: site unspecified Hematuria presence: without hematuria Qualified Code(s): N39.0 - Urinary tract infection, site not specified Hospitalist: Subjective Interval history: Patient has been seen interviewed and examined and chart has been reviewed offering no complaints today. And noticed that her blood pressure is rather high. She is a rate on diltiazem 60 mg p.o. 3 times daily admitted to the hospital with atrial fibrillation on anticoagulation yesterday did have supratherapeutic international normalizing ratio. Repeat INR today. As regard to the blood pressure will resume her losartan. She uses amlodipine at home but will hold that because she is already on Cardizem. Patient does have a transvenous pacemaker. He was also admitted with urinary tract infection and going to repeat a urinalysis today. Patient is did have positive blood cultures with Enterococcus faecalis. Repeated blood cultures are in progress. She has a history of heart valvular replacement therefore presence of continuous bacteremia is of more concern. Exam - Constitutional Vitals: Period Temp Pulse Resp BP Sys/Fitzgerald Pulse Ox Last 24 Hr 97.2 F-101.5 F 62-91 18-42 120-169/63-99 93-98 General: Alert oriented 3 no acute distress. His stated age HEENT: Normal findings with healing abrasions on the forehead normocephalic head. Neck: Supple midline trachea no stridor no JVD no carotid bruits Chest: No tenderness good respiratory excursion Heart: Irregular tones noted atrial fibrillation monitor rate below 100 above 60 Abdomen: Nontender no guarding positive bowel sounds Extremities: Patient has transvenous catheter in the right groin site is clean. Peripheral pulses are normal motion and strength is normal no focal neurologic deficit Skin: Warm dry no edema Neurologic: And is nonfocal can move all extremities without limitations. Cognitive function is normal. Memory is good. Assessment plan 1. Hypertension: He will be started on losartan besides the diltiazem that she is already on. We intend to maintain systolic blood pressures between 130 and 140. Try to avoid any more atrioventricular blockers. 2. Syncope: This was cardiogenic the patient did have as history. This is in the realm of sick sinus syndrome. Patient is consulted to cardiology and I will defer management for this to them. 3. Sepsis: Patient urinary tract infection with Enterococcus faecalis that also grew in the blood. She is on the piperacillin/tazobactam and gentamicin at this point. Gentamicin trough and peak are pending the dose on Saturday. Patient is consulted for pharmacy pharmacokinetics and dosing of gentamicin. Hopefully this is transient bacteremia, in that case gentamicin treatment would be short-lived under leave the patient on oral penicillin for some time. 4. Sick sinus syndrome: patient is consulted to cardiology though decision on management of this is deferred to cardiology. Comparative the patient is doing better I believe with the start of the week definitive decisions on treatment should be reached. In the meantime keep her in the unit Results - Labs CBC & BMP: 06/02/16 04:23 06/02/16 04:23 Quality Measures - VTE Contraindication to Pharmacological VTE Prophylaxis: Coagulopathy
[2016-06-02] MEDS ORDERED: hydrALAZINE 20 MG/1 ML VIAL IV PRN (09:38)
[2016-06-02] MEDS: DILTIAZEM 60 MG TABLET PO SCH ×3 (09:45→22:31)
[2016-06-02] MEDS: ASPIRIN EC 81 MG TABLET PO SCH (09:45)
[2016-06-02] MEDS: CALCIUM (CARBONATE) 500 MG TABLET PO SCH ×2 (09:45→22:32)
[2016-06-02] MEDS: PANTOPRAZOLE 40 MG TABLET PO SCH (09:45)
[2016-06-02] MEDS: ALLOPURINOL 300 MG TABLET PO SCH (09:45)
[2016-06-02] MEDS: MULTIVITAMIN (OCUVITE) TABLET PO SCH ×2 (09:45→22:32)
[2016-06-02] MEDS: FLUTICASONE/SALMETEROL 250-50 DISKUS 14 DOSE INH SCH ×2 (09:46→22:18)
[2016-06-02 10:21] LABS: Apearance,Urine Slightly Hazy (Clear); Bacteria,Urine Occasional /HPF (Few); Bilirubin,Urine Negative (Negative); Blood, Urine Moderate mg/dL (Negative); Glucose,Urine (UA) 50 mg/dL (Negative); Hyaline Casts,Urine 1 /LPF (0-3); Ketones,Urine 80 mg/dL (Negative); Mucus,Urine Occasional /LPF (Occasional); Nitrite,Urine Negative (Negative); Protein,Urine 30 MG/DL; RBC,Urine 105 /HPF (0-4); Squamous Epithelial Cell,Urine Occasional /HPF (0-10); Urine Color Yellow (Yellow); Urine Specific Gravity 1.012 (1.001-1.035); Urine Urobilinogen < 2.0 EU/DL (0.2-1.0); WBC,Urine 21 /HPF (0-6)
[2016-06-02] MEDS: GENTAMICIN INJ 200 MG in SODIUM CHLORIDE 0.9% 100 ML IV SCH (10:48)
[2016-06-02] MEDS ORDERED: VECURONIUM 10 MG VIAL IV ONE ×2 (14:15→14:20)
[2016-06-02] MEDS ORDERED: ETOMIDATE 20 MG/10 ML VIAL IV ONE (14:19)
[2016-06-02] MEDS ORDERED: PROPOFOL 1,000 MG/100 ML BOTTLE IV ONE (14:26)
[2016-06-02] MEDS: PROPOFOL 1,000 MG/100 ML BOTTLE IV SCH (14:30)
--- NOTE | 2016-06-02 14:31 | Event Note ---
I Was called to [facility] in room 126. Upon my arrival patient had been in V. fib and had already been DC cardioverted by the nursing staff and had subsequently returned to a rhythm of electronic ventricular pacemaker. Patient was in respiratory distress. She was intubated with 8.0 ET tube following etomidate 20 mg IV and vecuronium 10 mg IV. Intubation was without difficulty. Tube was noted to be at 23 cm at the lip. Upon intubation condensation was noted in the tube, color change monitor was consistent with placement of the tube in the trachea. Auscultation revealed bilateral and equal breath sounds. There are no breath sounds noted over the epigastrium. Chest excursion was equal bilaterally. Chest x-ray is pending.
[2016-06-02 14:58] LABS: Calcium 9.4 MG/DL (8.5-10.1); Magnesium 1.9 MG/DL (1.8-2.4); Osmolality,Calculated 279.4 MOS/KG (273-304); Potassium 3.7 MMOL/L (3.5-5.1)
[2016-06-02 15:07] LABS: Troponin I Only 0.629 NG/ML (0.00-0.045)
--- NOTE | 2016-06-02 15:07 | EKG Report ---
Stationary ECG Study [facility] Test Date: 06/02/2016 3:06:25 PM Pat Name: ERIC ALLISON Department: Room: 126 Gender: F Executive Housekeeper: LENARD : 1925 Requested by: Krzysztof Franz Order Number: [id number] Jumana MD: ANTONIO CAMACHO Intervals [place] Rate: 64 P: 999 CO: 0 QRS: -73 QRSD: 154 T: -76 QT: 486 QTc: 495 Interpretive Statements ATRIAL FIBRILLATION WITH NON-SPECIFIC INTRAVENTRICULAR CONDUCTION DELAY AND INTERMITTENT VENTRICULAR PACING Electronically Signed On 06-03-16 11:19:14 TAX RECORD CLERK by ANTONIO CAMACHO [id number]
[2016-06-02 15:08] LABS: Basophils # 0.1 10*3/uL (0.0-0.2); Basophils % 0.3 % (0.0-0.8); Eosinophils # 0.1 10*3/uL (0.0-0.87); Eosinophils % 0.5 % (0.00-10.9); Hematocrit 37.2 VOL% (35.7-47.0); Hemoglobin 12.1 GM/DL (12.0-16.0); Immature Granulocytes % 3.6 %; Immature Granulocytes Absolute 0.84 #; Lymphocytes # 2.7 10*3/uL (1.4-4.0); Lymphocytes % 11.6 % (21.3-54.2); Mean Corpuscular HGB Conc 32.5 GM/DL (32-36); Mean Corpuscular Hemoglobin 28 PG (27-34); Mean Corpuscular Volume 87.1 FL (87-102); Mean Platelet Volume 11.5 FL (9.6-12.0); Monocytes # 1.4 10*3/uL (0.11-0.8); Monocytes % 5.9 % (1.7-12.7); NRBC # 0.03 10*3/uL; Neutrophils # 18.5 10*3/uL (1.4-7.4); Neutrophils % 78.1 % (38.7-73.9); Platelet Count 357 T/CUMM (130-400); Red Blood Count 4.27 MC/CUMM (3.8-5.5); Red Cell Distribution Width 14.6 % (9.3-17.3); White Blood Count 23.6 T/CUMM (4-12)
[2016-06-02 15:15] LABS: INR 2.1; Partial Thromboplastin Time 31.8 SECS (0-40)
[2016-06-02 15:18] LABS: ABG Base Excess 3.1 MMOL/L (-2.5-2.5); ABG HCO3 25.6 MMOL/L (20-26); ABG Oxygen Saturation 99.2 % (95-100); ABG PCO2 32.1 MM HG (35-48); ABG PO2 413.8 MM HG (80-95); ABG TCO2 26.6 MMOL/L (23-27); Allen Test Positive; Pt O2 Delivery Device Ventilator
[2016-06-02 15:19] LABS: PT Patient Result 22.9 SECS
[2016-06-02 15:20] LABS: Albumin 2.8 G/DL (3.4-5.0); Bilirubin,Total 1.1 MG/DL (0.2-1.0); Calcium 9.4 MG/DL (8.5-10.1); Osmolality,Calculated 279.4 MOS/KG (273-304); Potassium 3.7 MMOL/L (3.5-5.1); Total Protein 6.2 G/DL (6.4-8.3)
[2016-06-02 15:32] LABS: Lymphocytes 17 % (20-55); Ovalocytes Few; Platelet Estimate Adequate; Poikilocytosis 1+; Segmented Neutrophils 80 % (50-85); Target Cells Slight; Total Cells Counted 100
[2016-06-02] MEDS ORDERED: MAGNESIUM SULF RIDER 2 GM in PREMIX 1 EACH IV ONE (15:56)
[2016-06-02] MEDS ORDERED: POTASSIUM CHLORIDE RIDER 10 MEQ in PREMIX 1 EACH IV ONE (15:57)
--- NOTE | 2016-06-02 16:04 | Electrophysiology Progress Not ---
Assessment and Plan (1) Cardiac asystole Status: Acute Assessment and plan: 89-year-old female, with permanent atrial fibrillation, status post aortic valve replacement, syncope, likely due to bradycardia. E. faecalis UTI, sepsis. 3/: RVF temp PM implant, then reposition 06/02: VF arrest -PVT/VF. Increased the pacing rate to 70 bpm, to avoid bradycardia induced VT. Keep potassium above 4, magnesium above 2. Adjust ventilator settings, to avoid alkalosis. ACS seems to be less likely, and she would be a very poor candidate for revascularization at this time. Start metoprolol 25 mg twice a day. First dose now. If hypotension limits beta ada, stop the Cardizem. -AF, IVCD, intermittent AVB, s/p critical bradycardia. Keep temporary pacer in place. She is high risk for complications. When E. faecalis UTI sepsis resolves , will need permanent PM implant. -Bioprosthetic AVR. There was no evidence of large vegetations on transthoracic echo. High risk infection for endocarditis and she was still febrile, high WBC, despite being on IV antibiotics. -Keep INR 2-3. Coumadin on hold. Bridge if drifts <2. -CHF. Cont diuresis as allowed by BP -Discussed poor prognosis with the daughter at bedside. For now, she would like to continue full measures. Current Visit: Yes (2) Atrial fibrillation Status: Acute Current Visit: Yes Qualifiers: Atrial fibrillation type: chronic Qualified Code(s): I48.2 - Chronic atrial fibrillation (3) Dyslipidemia Status: Acute Current Visit: Yes (4) Fever Status: Acute Current Visit: Yes (5) HTN (hypertension) Status: Acute Current Visit: Yes (6) Syncope, cardiogenic Status: Acute Current Visit: Yes (7) Urinary tract infection Status: Acute Current Visit: Yes Qualifiers: Urinary tract infection type: site unspecified Hematuria presence: without hematuria Qualified Code(s): N39.0 - Urinary tract infection, site not specified (8) Valvular disease Status: Acute Current Visit: Yes (9) Gout Status: Acute Current Visit: No (10) H/O aortic valve replacement Status: Acute Current Visit: No Electrophysiology Subjective Interval history: She had a polymorphic VT, that transformed into VF and required defibrillation. She was intubated. Now, A. fib, ventricular paced rhythm. CXR - the right sided lung infiltrate appears to be more prominent, although she has significant right-sided cardiomegaly, rotation on prior x-ray. The temporary pacer wire is in a proper place. No major electrolyte issues. WBC increased since yesterday. She was still febrile yesterday. Exam - Constitutional Vitals: Period Temp Pulse Resp BP Sys/Fitzgerald Pulse Ox Last 24 Hr 97.2 F-101.4 F 62-87 12-42 127-177/63-95 63-98 General appearance: over weight, other (intubated) - Head Head exam: Present: normal inspection - Eye Eye exam: Absent: conjunctival injection Pupils: Absent: dilated - ENT ENT exam: Present: normal external ear exam - Neck Neck exam: Present: normal inspection - Respiratory Respiratory exam: Absent: accessory muscle use - Cardiovascular Cardiovascular exam: Present: irregular rhythm - GI/Abdominal GI/Abdominal exam: Absent: distended - Extremities Exam Extremities exam: Present: normal inspection - Neurological Exam Neurological exam: Present: altered - Skin Skin exam: Present: normal color, warm. Absent: cyanosis Results - Labs CBC & BMP: 06/02/16 14:00 06/02/16 14:29 Lab Results: I have reviewed the past 24 hour labs Quality Measures - VTE Contraindication to Pharmacological VTE Prophylaxis: Coagulopathy
[2016-06-02] MEDS ORDERED: METOPROLOL TARTRATE 25 MG TABLET PO ONE (16:07)
--- NOTE | 2016-06-02 16:30 | XRay Report ---
XR chest 1V portable Indication: Ventilator, intubation Comparison: 31 May 2016 Findings: The heart and mediastinum are stable in size and configuration with cardiac surgery changes. Endotracheal tube is present with tip at the clavicle level. The pulmonary vascularity is prominent but similar to previous. Lung volumes are increased with prominent bronchial markings. No lung infiltrates, effusions, pneumothorax or other abnormality is demonstrated. Impression: Chronic lung and cardiac surgery changes. Endotracheal tube tip is at the clavicle level. No other significant change. PROCEDURE INTERPRETED AT [facility] DEPARTMENT OF RADIOLOGY Final Report Signed by: Dr. Efrain Murillo
--- NOTE | 2016-06-02 22:12 | CT Report ---
CT chest pulmonary embolism Indication: Elevated d-dimer, pulmonary embolism Comparison: None available Technique: Axial CT imaging of the chest is performed with intravenous contrast. Contrast dose is 80 cc of Omnipaque 350. Findings: Endotracheal tube is seen in the trachea with tip at clavicle level. No thrombus or other abnormality is identified in the pulmonary arteries or veins. The pulmonary vessel caliber is within normal limits. Cardiac surgery changes are present. Calcification is seen in the aorta and coronary vessels. Otherwise the heart, mediastinum and great vessels appear within normal limits. Small bilateral effusions are present. Small amounts of lower lung airspace density are seen right greater than left. Remaining pulmonary parenchyma shows no evidence of airspace disease or abnormal density. No effusion or pneumothorax is present. Impression: No evidence of pulmonary thromboembolism. Small bilateral pleural effusions. Small amounts of lower lung airspace density could indicate atelectasis or infiltrate.. PROCEDURE INTERPRETED AT [facility] DEPARTMENT OF RADIOLOGY Final Report Signed by: Dr. Efrain Murillo
[2016-06-02] MEDS: SODIUM CHLORIDE 0.9% 1,000 ML IV SCH (22:30)
[2016-06-02] MEDS: ATORVASTATIN 10 MG TABLET PO SCH (22:31)
[2016-06-02] MEDS: METOPROLOL TARTRATE 25 MG TABLET PO SCH (22:32)
[2016-06-03] MEDS: PROPOFOL 1,000 MG/100 ML BOTTLE IV SCH ×2 (01:59→14:34)
[2016-06-03 02:54] LABS: ABG Base Excess 5.1 MMOL/L (-2.5-2.5); ABG HCO3 26.9 MMOL/L (20-26); ABG Oxygen Saturation 98.2 % (95-100); ABG PCO2 30.1 MM HG (35-48); ABG PH 7.569 (7.35-7.45); ABG PO2 114.1 MM HG (80-95); ABG TCO2 27.8 MMOL/L (23-27); Allen Test Positive; Pt O2 Delivery Device Ventilator
[2016-06-03] MEDS: AMPICILLIN/SULBACTAM 3,000 MG in SODIUM CHLORIDE 0.9% 100 ML IV SCH ×4 (03:20→22:34)
[2016-06-03 04:56] LABS: Basophils % 0.1 % (0.0-0.8); Eosinophils # 0.1 10*3/uL (0.0-0.87); Eosinophils % 0.6 % (0.00-10.9); Hematocrit 30.9 VOL% (35.7-47.0); Hemoglobin 10.2 GM/DL (12.0-16.0); Immature Granulocytes % 1.1 %; Immature Granulocytes Absolute 0.18 #; Lymphocytes # 1.5 10*3/uL (1.4-4.0); Lymphocytes % 8.9 % (21.3-54.2); Mean Corpuscular Hemoglobin 28 PG (27-34); Mean Corpuscular Volume 85.4 FL (87-102); Mean Platelet Volume 11.6 FL (9.6-12.0); Neutrophils # 13.5 10*3/uL (1.4-7.4); Neutrophils % 83.3 % (38.7-73.9); Platelet Count 269 T/CUMM (130-400); Red Blood Count 3.62 MC/CUMM (3.8-5.5); Red Cell Distribution Width 14.6 % (9.3-17.3); White Blood Count 16.2 T/CUMM (4-12)
[2016-06-03 05:24] LABS: Calcium 8.4 MG/DL (8.5-10.1); Magnesium 2.1 MG/DL (1.8-2.4); Osmolality,Calculated 284.8 MOS/KG (273-304); Potassium 3.6 MMOL/L (3.5-5.1)
[2016-06-03 05:31] LABS: PT Patient Result 22.5 SECS
[2016-06-03] MEDS: POTASSIUM CHLORIDE RIDER 10 MEQ in PREMIX 1 EACH IV PRN ×2 (06:40→08:37)
--- NOTE | 2016-06-03 06:48 | Pulmonology Consult Note ---
Assessment and Plan (1) Sepsis Status: Acute Assessment and plan: She has positive blood cultures for enterococcus and is on ampicillin. Will need to have negative blood cultures before consideration of a permanent pacemaker/AICD is done. Current Visit: Yes (2) Urinary tract infection Status: Acute Assessment and plan: Continuing ampicillin for enterococcal UTI. Current Visit: Yes Qualifiers: Urinary tract infection type: site unspecified Hematuria presence: without hematuria Qualified Code(s): N39.0 - Urinary tract infection, site not specified (3) H/O aortic valve replacement Status: Acute Assessment and plan: Chronically on Coumadin for a mechanical aortic valve replacement in the past. Current Visit: No (4) Cardiac asystole Status: Acute Assessment and plan: Had long pauses and probably asystole as the mechanism of her syncope and arrest. Current Visit: Yes (5) Syncope, cardiogenic Status: Acute Assessment and plan: Arrhythmia was felt to be the cause of her syncope. Defer to Dr. Palacios. Current Visit: Yes (6) Acute respiratory failure Status: Acute Assessment and plan: This is likely due to the arrhythmia and some congestive heart failure. ABGs look good. Patient is presently sedated. Will hold sedation and start CPAP trials and see when we can get her extubated. Current Visit: Yes History of Present Illness Chief complaint: Status post cardiac arrest History of present illness: Ms. Sullivan is a 89 year old female who was admitted here about a week ago. She had fever chills and rigor and was found to have a urinary tract infection with enterococcus. Also had positive blood cultures. She is on intravenous ampicillin. She had a syncopal episode while in her room upstairs and fell and bumped her head and was noted to have asystole. CPR was done and she is now on the ventilator. She has a temporary pacemaker in place. She has chronic atrial fibrillation and is on Coumadin. Of note that she uses Advair regularly presumably for asthma. She does not have any history of smoking. Apparently she is from [place] and is here visiting family. In addition to the above she was found to have a facet fracture of C6. Apparently this was not displaced but has not been fully evaluated as yet. Home Medications Medication Instructions Recorded Confirmed Type Allopurinol 300 mg PO DAILY 05/29/16 05/29/16 History Aspirin [Ecotrin] 81 mg PO DAILY 05/29/16 05/29/16 History Atorvastatin [Lipitor] 5 mg PO QPM 05/29/16 05/29/16 History Calcium (Carbonate) [Oscal 500] 500 mg PO BID 05/29/16 05/29/16 History Fluticasone/Salmeterol 250-50 1 puff INH BID 05/29/16 05/29/16 History [Advair 250-50] Furosemide Tab [Lasix Tab] 20 mg PO BID 05/29/16 05/29/16 History Meloxicam [Mobic] 7.5 mg PO BID PRN 05/29/16 05/29/16 History Metoprolol Tartrate 50 mg PO BID 05/29/16 05/29/16 History Vit C/Selvin AC/Lut/Copper/Znox 1 each PO BID 05/29/16 05/29/16 History [Preservision Lutein Softgel] Warfarin [Coumadin] 3 mg PO QPM 05/29/16 05/29/16 History amLODIPine [Norvasc] 5 mg PO QPM 05/29/16 05/29/16 History diltiaZEM HCl [Diltiazem HCl] 120 mg PO DAILY 05/29/16 05/29/16 History Allergies Allergy/AdvReac Type Severity Reaction Status Date / Time sulfamethoxazole Allergy Severe RASH Verified 05/31/16 12:31 [From Bactrim] trimethoprim [From Bactrim] Allergy Severe RASH Verified 05/31/16 12:31 lisinopril Allergy Mild ITCHING Verified 05/31/16 12:31 ROS unobtainable: due to endotracheal tube Exam (Pulmonay) H&P - Constitutional Vitals: Period Temp Pulse Resp BP Sys/Fitzgerald Pulse Ox Last 24 Hr 97.2 F-99.6 F 63-80 12-35 109-177/58-95 63-100 Exam: Vital signs are normal. She has not paced rhythm about 70. Pupils are reactive. Orotracheal tube in place. Neck is supple no bruits. Chest shows a few minimal rhonchi she is not tight I do not hear any rales. Heart rate is regular no murmurs. Abdomen soft no masses. Bowel sounds present. Extremities no clubbing cyanosis edema. Medical,Surgical,& Family Hx - Medical History Cardio: History of: Cardiac Dysrhythmia (chronic atrial fib), Hypertension, Valvular Heart Disease (2013- AVR) No history of: Congenital Heart Disease, CHF Psychological: No history of: Depression Neurology: No history of: Dementia, Seizures, TIA HEENT: History of: Eye Problem Endocrine: History of: Dyslipidemia No history of: Diabetes Mellitus (IDDM), Diabetes Mellitus (NIDDM), Thyroid Disorder Rheumatology: History of;: Gout Respiratory: History of: COPD Genitourinary: History of: Kidney Stones Gastrointestinal: No history of: Esophageal Varices, Hepatitis Musculoskeletal: History of: Degenerative Disk Disease Hematology: No history of: Anemia - Surgical History Cardiac Surgeries: Sugical HX of: Cardiac Surgery Patient Denies: Cardiac Catheterization, Carotid Endarterectomy HEENT Surgeries: Patient denies: Carotid Endarterectomy Orthopedic Surgeries: Patient denies;: Spinal Surgery - Family History Family History: Reports;: Family Stroke (MOTHER) Denies;: Additional Family History - Social History Smoking Status: Never smoker Frequency of Alcohol Use: None Type of Drug Use: None Results - Labs CBC & BMP: 06/03/16 03:48 06/03/16 03:48 Lab Results: I have reviewed the past 24 hour labs - Diagnostic Findings Procedure: Chest x-ray: image reviewed by me (Cardiomegaly. ET tube in good position. There may be small right pleural effusion and infiltrate.), CT - chest: image reviewed by me (No evidence of a pulmonary embolus. She has bilateral small pleural effusions more on the right than the left. Some right basilar atelectasis. This fits most with congestive heart failure.) Quality Measures - VTE Contraindication to Pharmacological VTE Prophylaxis: Coagulopathy
[2016-06-03] MEDS: FLUTICASONE/SALMETEROL 250-50 DISKUS 14 DOSE INH SCH ×2 (08:39→22:34)
[2016-06-03] MEDS: MULTIVITAMIN (OCUVITE) TABLET PO SCH ×2 (08:39→22:33)
[2016-06-03] MEDS: ASPIRIN EC 81 MG TABLET PO SCH (08:39)
[2016-06-03] MEDS: METOPROLOL TARTRATE 25 MG TABLET PO SCH ×2 (08:39→22:33)
[2016-06-03] MEDS: PANTOPRAZOLE 40 MG TABLET PO SCH (08:39)
[2016-06-03] MEDS: DILTIAZEM 60 MG TABLET PO SCH ×3 (08:39→22:33)
[2016-06-03] MEDS: CALCIUM (CARBONATE) 500 MG TABLET PO SCH ×2 (08:40→22:32)
[2016-06-03] MEDS: LOSARTAN 50 MG TABLET PO SCH (08:40)
[2016-06-03] MEDS: ALLOPURINOL 300 MG TABLET PO SCH (08:40)
--- NOTE | 2016-06-03 08:41 | Cardiology Progress Note ---
Assessment and Plan (1) Atrial fibrillation Status: Inactive Assessment and plan: Overall, rate is controlled at this time. Anticoagulated with Coumadin. Cardizem has not been resumed since admission. 06/02: Rhythm continues atrial fibrillation with pauses covered by temporary pacemaker. 06/03: Patient is stable currently sedated on the ventilator Current Visit: Yes Qualifiers: Atrial fibrillation type: chronic Qualified Code(s): I48.2 - Chronic atrial fibrillation (2) Cardiac asystole Status: Acute Assessment and plan: Patient is having significant pauses and this likely as a cause of her syncopal episode. She will need single-chamber pacing. We will ask Dr. Palacios to review I have discussed in detail the particulars of this case and I have examined the patient and reviewed the patient's chart both current and old. I was directly involved in the patient's evaluation and management and I completely agree with Brenda Casanova regarding this patient's evaluation and treatment plan. Current Visit: Yes (3) H/O aortic valve replacement Status: Acute Current Visit: No (4) Urinary tract infection Status: Acute Assessment and plan: IV antibiotics. Defer management to hospitalist. Current Visit: Yes Qualifiers: Urinary tract infection type: site unspecified Hematuria presence: without hematuria Qualified Code(s): N39.0 - Urinary tract infection, site not specified (5) HTN (hypertension) Status: Chronic Assessment and plan: Lopressor continued upon admission. Norvasc has been held. Current Visit: Yes (6) Dyslipidemia Status: Acute Assessment and plan: FLP's noted. Continue current statin. Current Visit: Yes (7) Gout Status: Acute Assessment and plan: Defer management to hospitalist. Current Visit: No (8) Valvular disease Status: Acute Current Visit: Yes Cardiology - PN: Subj Interval history: Events from yesterday noted. The patient had worsening respiratory distress and fibrillated yesterday. She was successfully resuscitated. She is currently sedated on the ventilator. She is stable from a rhythm standpoint currently. We increased her rate to try to see if we can avoid torsade which is what seem to be the etiology of her arrhythmia. Exam (Progress Note) - Constitutional Vitals: Period Temp Pulse Resp BP Sys/Fitzgerald Pulse Ox Last 24 Hr 97.2 F-99.6 F 63-79 12-35 109-177/58-95 63-100 Exam: General: Present: No Apparent Distress, Other HEENT: Present: PERRL, Mucus Membranes Dry. Absent: Pallor Neck: Present: Supple Neck, Midline Trachea, No Bruit Cardiac: Present: Irregularly Regular, Systolic Murmur. Absent: Tachycardia, Bradycardia Lungs: Present: Clear Ascult./Percussion, Oxygen, No Wheeze, Rales, Rhonchi Neuro: Present: Grossly Intact. Absent: Resting Tremor, Essential Tremor Abdomen: Present: Soft, Active Bowel Sounds. Absent: Ascites, Tender Skin: Present: Other (laceration to forehead with some bruising, small lac to bridge of nose) Musculoskeletal: Present: No Fluid Collection. Absent: Normal Range of Motion Extremities: Present: No Cyanosis, No Edema, Normal Upper Extr. Pulses (2+ bilaterally), Normal Lower Extr. Pulses (2+ bilaterally), Capillary Refill ( normal) Result/EKG - Labs CBC & BMP: 06/03/16 03:48 06/03/16 03:48 Labs: Laboratory Results - last 24 hr 06/02/16 06/02/16 06/02/16 10:00 14:00 14:00 WBC 23.6 H D RBC 4.27 Hgb 12.1 Hct 37.2 MCV 87.1 MCH 28 MCHC 32.5 RDW 14.6 Plt Count 357 D MPV 11.5 Neut % (Auto) 78.1 H Lymph % (Auto) 11.6 L [place] % (Auto) 5.9 Eos % (Auto) 0.5 Baso % (Auto) 0.3 Neut # (Auto) 18.5 H Lymph # (Auto) 2.7 [place] # (Auto) 1.4 H Eos # (Auto) 0.1 Baso # (Auto) 0.1 Total Counted 100 Immature Gran % 3.6 Nucleated RBC % 0.1 Immature Gran # 0.84 Segmented Neutrophils 80 Lymphocytes 17 L Monocytes 3 Nucleated RBCs # 0.03 Platelet Estimate Adequate Poikilocytosis 1+ Target Cells Slight Ovalocytes Few INR 2.1 PT Patient/Control Mix 22.9 D-Dimer, Quantitative Circ Anticoag PTT 31.8 D ABG pH ABG pCO2 ABG pO2 ABG HCO3 ABG Total CO2 ABG O2 Saturation ABG Base Excess FiO2 Sodium Potassium Chloride Carbon Dioxide Anion Gap BUN Creatinine GFR Calculation BUN/Creatinine Ratio Glucose POC Glucose Calculated Osmolality Calcium Magnesium Total Bilirubin AST ALT Alkaline Phosphatase Total Creatine Kinase CK-MB (CK-2) Troponin I Total Protein Albumin Globulin Albumin/Globulin Ratio Urine Color Yellow Urine Appearance Slightly hazy Urine pH 7.0 Ur Specific [place] 1.012 Urine Protein 30 Urine Glucose (UA) 50 Urine Ketones 80 Urine Blood Moderate Urine Nitrate Negative Urine Bilirubin Negative Urine Urobilinogen < 2.0 H Urine Leukocytes Negative Urine RBC 105 Urine WBC 21 Ur Squamous Epith Cells Occasional Urine Bacteria Occasional Hyaline Casts 1 Urine Mucus Occasional Ur Culture Indicated? Results to follow 06/02/16 06/02/16 06/02/16 14:00 14:28 14:29 WBC RBC Hgb Hct MCV MCH MCHC RDW Plt Count MPV Neut % (Auto) Lymph % (Auto) [place] % (Auto) Eos % (Auto) Baso % (Auto) Neut # (Auto) Lymph # (Auto) [place] # (Auto) Eos # (Auto) Baso # (Auto) Total Counted Immature Gran % Nucleated RBC % Immature Gran # Segmented Neutrophils Lymphocytes Monocytes Nucleated RBCs # Platelet Estimate Poikilocytosis Target Cells Ovalocytes INR PT Patient/Control Mix D-Dimer, Quantitative Circ Anticoag PTT ABG pH ABG pCO2 ABG pO2 ABG HCO3 ABG Total CO2 ABG O2 Saturation ABG Base Excess FiO2 Sodium 140 140 Potassium 3.7 3.7 Chloride 103 102 Carbon Dioxide 26 26 Anion Gap 14.7 15.7 H BUN 8 8 Creatinine 0.70 0.70 GFR Calculation 82 82 BUN/Creatinine Ratio 11.00 11.00 Glucose 150 H 150 H POC Glucose Calculated Osmolality 279.4 279.4 Calcium 9.4 9.4 Magnesium 1.9 Total Bilirubin 1.10 H AST 29 ALT 26 Alkaline Phosphatase 156 H Total Creatine Kinase 36 CK-MB (CK-2) 1.9 Troponin I 0.629 H D Total Protein 6.2 L Albumin 2.8 L Globulin 3.4 Albumin/Globulin Ratio 0.8 L Urine Color Urine Appearance Urine pH Ur Specific [place] Urine Protein Urine Glucose (UA) Urine Ketones Urine Blood Urine Nitrate Urine Bilirubin Urine Urobilinogen Urine Leukocytes Urine RBC Urine WBC Ur Squamous Epith Cells Urine Bacteria Hyaline Casts Urine Mucus Ur Culture Indicated? 06/02/16 06/02/16 06/02/16 15:10 19:50 23:49 WBC RBC Hgb Hct MCV MCH MCHC RDW Plt Count MPV Neut % (Auto) Lymph % (Auto) [place] % (Auto) Eos % (Auto) Baso % (Auto) Neut # (Auto) Lymph # (Auto) [place] # (Auto) Eos # (Auto) Baso # (Auto) Total Counted Immature Gran % Nucleated RBC % Immature Gran # Segmented Neutrophils Lymphocytes Monocytes Nucleated RBCs # Platelet Estimate Poikilocytosis Target Cells Ovalocytes INR PT Patient/Control Mix D-Dimer, Quantitative 2.0 Circ Anticoag PTT ABG pH 7.520 H ABG pCO2 32.1 L ABG pO2 413.8 H ABG HCO3 25.6 ABG Total CO2 26.6 ABG O2 Saturation 99.2 ABG Base Excess 3.1 H FiO2 100.00 Sodium Potassium Chloride Carbon Dioxide Anion Gap BUN Creatinine GFR Calculation BUN/Creatinine Ratio Glucose POC Glucose 100 Calculated Osmolality Calcium Magnesium Total Bilirubin AST ALT Alkaline Phosphatase Total Creatine Kinase CK-MB (CK-2) Troponin I Total Protein Albumin Globulin Albumin/Globulin Ratio Urine Color Urine Appearance Urine pH Ur Specific [place] Urine Protein Urine Glucose (UA) Urine Ketones Urine Blood Urine Nitrate Urine Bilirubin Urine Urobilinogen Urine Leukocytes Urine RBC Urine WBC Ur Squamous Epith Cells Urine Bacteria Hyaline Casts Urine Mucus Ur Culture Indicated? 06/03/16 06/03/16 06/03/16 02:40 03:48 03:48 WBC 16.2 H D RBC 3.62 L Hgb 10.2 L Hct 30.9 L MCV 85.4 L MCH 28 MCHC 33.0 RDW 14.6 Plt Count 269 D MPV 11.6 Neut % (Auto) 83.3 H Lymph % (Auto) 8.9 L [place] % (Auto) 6.0 Eos % (Auto) 0.6 Baso % (Auto) 0.1 Neut # (Auto) 13.5 H Lymph # (Auto) 1.5 [place] # (Auto) 1.0 H Eos # (Auto) 0.1 Baso # (Auto) 0.0 Total Counted Immature Gran % 1.1 Nucleated RBC % 0.0 Immature Gran # 0.18 Segmented Neutrophils Lymphocytes Monocytes Nucleated RBCs # 0.00 Platelet Estimate Poikilocytosis Target Cells Ovalocytes INR 2.0 PT Patient/Control Mix 22.5 D-Dimer, Quantitative Circ Anticoag PTT ABG pH 7.569 H ABG pCO2 30.1 L ABG pO2 114.1 H ABG HCO3 26.9 H ABG Total CO2 27.8 H ABG O2 Saturation 98.2 ABG Base Excess 5.1 H FiO2 50.00 Sodium Potassium Chloride Carbon Dioxide Anion Gap BUN Creatinine GFR Calculation BUN/Creatinine Ratio Glucose POC Glucose Calculated Osmolality Calcium Magnesium Total Bilirubin AST ALT Alkaline Phosphatase Total Creatine Kinase CK-MB (CK-2) Troponin I Total Protein Albumin Globulin Albumin/Globulin Ratio Urine Color Urine Appearance Urine pH Ur Specific [place] Urine Protein Urine Glucose (UA) Urine Ketones Urine Blood Urine Nitrate Urine Bilirubin Urine Urobilinogen Urine Leukocytes Urine RBC Urine WBC Ur Squamous Epith Cells Urine Bacteria Hyaline Casts Urine Mucus Ur Culture Indicated? 06/03/16 06/03/16 03:48 05:21 WBC RBC Hgb Hct MCV MCH MCHC RDW Plt Count MPV Neut % (Auto) Lymph % (Auto) [place] % (Auto) Eos % (Auto) Baso % (Auto) Neut # (Auto) Lymph # (Auto) [place] # (Auto) Eos # (Auto) Baso # (Auto) Total Counted Immature Gran % Nucleated RBC % Immature Gran # Segmented Neutrophils Lymphocytes Monocytes Nucleated RBCs # Platelet Estimate Poikilocytosis Target Cells Ovalocytes INR PT Patient/Control Mix D-Dimer, Quantitative Circ Anticoag PTT ABG pH ABG pCO2 ABG pO2 ABG HCO3 ABG Total CO2 ABG O2 Saturation ABG Base Excess FiO2 Sodium 144 Potassium 3.6 Chloride 106 Carbon Dioxide 26 Anion Gap 15.6 H BUN 10 Creatinine 0.70 GFR Calculation 84 BUN/Creatinine Ratio 14.00 Glucose 102 POC Glucose 100 Calculated Osmolality 284.8 Calcium 8.4 L Magnesium 2.1 Total Bilirubin AST ALT Alkaline Phosphatase Total Creatine Kinase CK-MB (CK-2) Troponin I Total Protein Albumin Globulin Albumin/Globulin Ratio Urine Color Urine Appearance Urine pH Ur Specific [place] Urine Protein Urine Glucose (UA) Urine Ketones Urine Blood Urine Nitrate Urine Bilirubin Urine Urobilinogen Urine Leukocytes Urine RBC Urine WBC Ur Squamous Epith Cells Urine Bacteria Hyaline Casts Urine Mucus Ur Culture Indicated? Quality Measures - VTE Contraindication to Pharmacological VTE Prophylaxis: Coagulopathy
--- NOTE | 2016-06-03 09:39 | XRay Report ---
XR chest 1V portable Indication: Ventilator management Comparison: 02 June 2016 Findings: The heart and mediastinum are stable in size and configuration with cardiac surgery changes. Endotracheal tube position is unchanged. The pulmonary vascularity is prominent but similar to previous study. Trace left lower lung density is present similar to previous. No other lung infiltrates, effusions, pneumothorax or other abnormality is demonstrated. Impression: No significant changes. PROCEDURE INTERPRETED AT [facility] DEPARTMENT OF RADIOLOGY Final Report Signed by: Dr. Efrain Murillo
[2016-06-03 09:40] LABS: CKMB % 4.9 %
[2016-06-03] MEDS ORDERED: FUROSEMIDE 40 MG/4 ML VIAL IV ONE (09:45)
[2016-06-03 09:50] LABS: Troponin I Only 5.36 NG/ML (0.00-0.045)
[2016-06-03] MEDS: GENTAMICIN INJ 200 MG in SODIUM CHLORIDE 0.9% 100 ML IV SCH (10:24)
[2016-06-03 10:45] LABS: ABG Base Excess 3.8 MMOL/L (-2.5-2.5); ABG HCO3 26.3 MMOL/L (20-26); ABG Oxygen Saturation 98.5 % (95-100); ABG PCO2 32.7 MM HG (35-48); ABG PH 7.524 (7.35-7.45); ABG PO2 140.2 MM HG (80-95); ABG TCO2 27.3 MMOL/L (23-27)
--- NOTE | 2016-06-03 11:08 | Hospitalist Progress Note ---
Assessment and Plan (1) Syncope, cardiogenic Status: Acute Assessment and plan: Patient now has a transvenous pacer. 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 Vital signs are stable. Mentating well and does not have noted dizziness while laying in bed. Current Visit: Yes (2) Atrial fibrillation Status: Inactive Assessment and plan: Continue current medications cardiology will comment to the patient. Current Visit: Yes Qualifiers: Atrial fibrillation type: chronic Qualified Code(s): I48.2 - Chronic atrial fibrillation (3) Urinary tract infection Status: Acute Assessment and plan: This is now known to be Enterococcus faecalis in the urine blood culture isolate is not fully identified. Antibiotics have been switched to Unasyn and gentamicin. Please refer to the orders written for the rectus of care will have a repeat urine done today to have repeat blood cultures done today Current Visit: Yes Qualifiers: Urinary tract infection type: site unspecified Hematuria presence: without hematuria Qualified Code(s): N39.0 - Urinary tract infection, site not specified (4) Acute respiratory failure with hypoxia Status: Acute Assessment and plan: And is intubated but seems to have come out of it. Should be able to be extubated within the coming [address] Martinez has been consulted for pulmonary service. Current Visit: Yes (5) Metallic aortic valve replacement during current hospitalization Status: Acute Assessment and plan: And has on board Coumadin. Her INR today is 2.0 by we need to raise that about 3.5-4.5. Continue to follow. Our presence of bacteremia is of concern because these valves can be infected easily. Repair tension to repeat blood cultures. Needed both ampicillin and gentamicin for enterococcus in the situation i.e. bacteremia Current Visit: Yes Hospitalist: Subjective Interval history: Patient has been seen interviewed and examined and chart has been reviewed. Later went into respiratory arrest yesterday status post a short cold with intubation. Patient had been noted to have developed ventricular tachycardia at the time. Please refer to the note from yesterday for details. Today the patient remains intubated has been seen by pulmonary. They may be attempted to extubate her later on today. Her troponins have gone up high and cardiology is aware of that. She is already on Coumadin with INR of 2 inactive for this addition of an INR between 3.5 and 4.4 being that she is she has got a mechanical aortic valve. I have instructed the nurses to resume the Coumadin. She also needs some nutrition. She has normal saline running at this time but should continue of 70 mL/h as the pericardial will be at 50 mL/h. She will receive some IV Lasix 40 mg IV this morning see if we can bump of the urine output which has dwindled overnight. Her blood pressures are optimal. We have also done 2 sets of blood culture this morning to repeat as a follow-up on the positive blood cultures before with the Enterococcus faecalis penicillin sensitive. Patient is on ampicillin and gentamicin. Pharmacy is to follow the gentamicin pharmacokinetics and dosing. Exam - Constitutional Vitals: Period Temp Pulse Resp BP Sys/Fitzgerald Pulse Ox Last 24 Hr 97.2 F-99.6 F 63-73 12-32 109-170/58-86 63-100 General appearance: normal weight - Head Head exam: Present: normocephalic, other (Small abrasion on the front of the head after a fall that she sustained on the floor 4 days ago before she got transferred to the unit.) - Eye Pupils: Present: NORI - ENT ENT exam: Present: other (Patient is orally intubated at this point) - Neck Neck exam: Present: other (No JVD) - Respiratory Respiratory exam: Present: clear to auscultation bilaterally, other (Wheezing no rhonchi) - Cardiovascular Cardiovascular exam: Present: irregular rhythm, other (In his atrial fibrillation) - GI/Abdominal GI/Abdominal exam: Present: normal bowel sounds, soft (No guarding) - Extremities Exam Extremities exam: Present: other (No edema) - Neurological Exam Neurological exam: Present: other (She is currently sedated and intubated not fully evaluated neuro status) - Psychiatric Psychiatric exam: Present: other (As above) - Skin Skin exam: Present: normal color, warm, dry Results - Labs CBC & BMP: 06/03/16 03:48 06/03/16 03:48 Lab Results: I have reviewed the past 24 hour labs (Noted leukocytosis of 16.2 chronic anemia that is stable EKG shows paced beats) Quality Measures - VTE Contraindication to Pharmacological VTE Prophylaxis: Coagulopathy
[2016-06-03] MEDS: SODIUM CHLORIDE 0.9% 1,000 ML IV SCH ×2 (12:18→18:03)
[2016-06-03 14:05] LABS: ABG HCO3 28.8 MMOL/L (20-26); ABG Oxygen Saturation 98.1 % (95-100); ABG PCO2 35.3 MM HG (35-48); ABG PH 7.529 (7.35-7.45); ABG PO2 114.5 MM HG (80-95); ABG TCO2 29.9 MMOL/L (23-27)
[2016-06-03] MEDS ORDERED: TRACE ELEMENTS (5) 1 ML, MULTIVITAMIN INJ 10 ML in AMINO ACIDS/DEXT/LYTES 4.25-5% 2,000 ML IV SCH (17:00)
[2016-06-03] MEDS ORDERED: FAT EMULSION 20% 250 ML IV SCH (17:00)
[2016-06-03] MEDS: WARFARIN 3 MG TABLET PO SCH (18:02)
[2016-06-03] MEDS: ACETAMINOPHEN 325 MG TABLET PO PRN (18:29)
--- NOTE | 2016-06-03 22:13 | Electrophysiology Progress Not ---
Assessment and Plan (1) Cardiac asystole Status: Acute Assessment and plan: 89-year-old female, with permanent atrial fibrillation, status post aortic valve replacement, syncope, likely due to bradycardia. E. faecalis UTI, sepsis. 3: RVF temp PM implant, then reposition 06/02: VF arrest -PVT/VF. No recurrence. Now Vpaced at 70 bpm, with occ. conducted beats. Cont to replete lytes. This was likely due to sepsis, prolonged QTc on EKG, relative bradycardia. Cont BB. -AF, IVCD, intermittent AVB, s/p critical bradycardia. Keep temporary pacer in place. She is high risk for complications and we will need to proceed with a permanent device when her sepsis allows. FU UC, BC drawn today. If she remains afebrile, WBC keeps trending down and cultures remains negative, plan to proceed with VVI PM implant on Sat -Bioprosthetic AVR. There was no evidence of large vegetations on transthoracic echo. High risk infection for endocarditis and the sepsis was slow to resolve despite proper abx. -Keep INR 2-3. Coumadin restarted. Bridge if drifts <2. -CHF. Cont diuresis as allowed by BP -She is now DNI. Current Visit: Yes (2) Atrial fibrillation Status: Inactive Current Visit: Yes Qualifiers: Atrial fibrillation type: chronic Qualified Code(s): I48.2 - Chronic atrial fibrillation (3) Dyslipidemia Status: Acute Current Visit: Yes (4) Fever Status: Acute Current Visit: Yes (5) HTN (hypertension) Status: Acute Current Visit: Yes (6) Syncope, cardiogenic Status: Acute Current Visit: Yes (7) Urinary tract infection Status: Acute Current Visit: Yes Qualifiers: Urinary tract infection type: site unspecified Hematuria presence: without hematuria Qualified Code(s): N39.0 - Urinary tract infection, site not specified (8) Valvular disease Status: Acute Current Visit: Yes (9) Gout Status: Acute Current Visit: No (10) H/O aortic valve replacement Status: Acute Current Visit: No Electrophysiology Subjective Interval history: She was still subfebrile today. WBC decreasing. Extubated. No recurrence of ventricular fibrillation. Ventricle pacing, with occasional atrial fibrillation , conducted beats. Urine culture and blood culture was drawn today. Exam - Constitutional Vitals: Period Temp Pulse Resp BP Sys/Fitzgerald Pulse Ox Last 24 Hr 97.2 F-99.8 F 71-74 7-37 109-175/58-80 97-100 General appearance: over weight - Head Head exam: Present: normal inspection - Eye Eye exam: Absent: conjunctival injection Pupils: Absent: dilated - ENT ENT exam: Present: normal external ear exam - Neck Neck exam: Present: normal inspection - Respiratory Respiratory exam: Present: decreased breath sounds - Cardiovascular Cardiovascular exam: Present: irregular rhythm, systolic murmur - GI/Abdominal GI/Abdominal exam: Present: normal bowel sounds - Extremities Exam Extremities exam: Present: normal inspection, normal capillary refill, other ( RFV temp PM in place). Absent: edema - Back Exam Back exam: Present: normal inspection - Neurological Exam Neurological exam: Present: alert - Psychiatric Psychiatric exam: Present: normal affect, normal mood - Skin Skin exam: Present: normal color, warm. Absent: cyanosis Results - Labs CBC & BMP: 06/03/16 03:48 06/03/16 03:48 Lab Results: I have reviewed the past 24 hour labs Quality Measures - VTE Contraindication to Pharmacological VTE Prophylaxis: Coagulopathy
[2016-06-03] MEDS: ATORVASTATIN 10 MG TABLET PO SCH (22:31)
[2016-06-04] MEDS: AMPICILLIN/SULBACTAM 3,000 MG in SODIUM CHLORIDE 0.9% 100 ML IV SCH ×4 (04:10→20:31)
[2016-06-04 04:35] LABS: Basophils # 0.1 10*3/uL (0.0-0.2); Basophils % 0.3 % (0.0-0.8); Eosinophils # 0.1 10*3/uL (0.0-0.87); Eosinophils % 0.6 % (0.00-10.9); Hematocrit 32.5 VOL% (35.7-47.0); Hemoglobin 10.5 GM/DL (12.0-16.0); Immature Granulocytes Absolute 0.21 #; Lymphocytes # 1.1 10*3/uL (1.4-4.0); Lymphocytes % 5.2 % (21.3-54.2); Mean Corpuscular HGB Conc 32.3 GM/DL (32-36); Mean Corpuscular Hemoglobin 28 PG (27-34); Mean Corpuscular Volume 86.4 FL (87-102); Monocytes # 1.1 10*3/uL (0.11-0.8); Monocytes % 5.2 % (1.7-12.7); Neutrophils # 18.3 10*3/uL (1.4-7.4); Neutrophils % 87.7 % (38.7-73.9); Platelet Count 282 T/CUMM (130-400); Red Blood Count 3.76 MC/CUMM (3.8-5.5); Red Cell Distribution Width 14.7 % (9.3-17.3); White Blood Count 20.9 T/CUMM (4-12)
[2016-06-04 04:43] LABS: INR 2.2
[2016-06-04 04:52] LABS: PT Patient Result 24.1 SECS
[2016-06-04 05:02] LABS: Calcium 8.8 MG/DL (8.5-10.1); Osmolality,Calculated 287.8 MOS/KG (273-304); Potassium 3.6 MMOL/L (3.5-5.1)
[2016-06-04 05:03] LABS: Lymphocytes 2 % (20-55); Platelet Estimate Normal; Segmented Neutrophils 95 % (50-85); Total Cells Counted 100
[2016-06-04 05:05] LABS: CKMB % 6.3 %
[2016-06-04 05:08] LABS: Calcium 8.8 MG/DL (8.5-10.1); Phosphorous 3.2 MG/DL (2.5-4.9); Potassium 3.6 MMOL/L (3.5-5.1); Prealbumin 6.2 MG/DL (20-40)
[2016-06-04 05:09] LABS: Troponin I Only 4.43 NG/ML (0.00-0.045)
[2016-06-04] MEDS: POTASSIUM CHLORIDE RIDER 10 MEQ in PREMIX 1 EACH IV PRN ×2 (05:25→06:35)
--- NOTE | 2016-06-04 07:45 | Pulmonology Progress Note ---
Pulmonary - PN: Subj Interval history: This 89-year-old white female had asystole with syncope. She has a temporary pacemaker. She was ventilated but was able to be extubated yesterday. She has a urinary tract infection with enterococcus with enterococcal sepsis. She had another set of blood cultures drawn yesterday. If they turning sander tender to be negative then we could proceed with a permanent pacemaker/AICD. At present she is alert responsive. She is a little bit dysarthric. ABGs look good post extubation. Exam (Progress Note) - Constitutional Vitals: Period Temp Pulse Resp BP Sys/Fitzgerald Pulse Ox Last 24 Hr 97.7 F-99.8 F 71-80 7-37 115-175/61-84 95-100 Exam: Vital signs normal. Pupils react to light. Motor is clear. Her speech is a little dysarthric. Neck is supple no bruits. Chest reveals a few scattered rhonchi. Heart paced rhythm no murmurs. Abdomen soft nontender no masses. Bowel sounds present. Extremities no clubbing cyanosis edema. Calves nontender. Results - Labs CBC & BMP: 06/04/16 04:07 06/04/16 04:07 Lab Results: I have reviewed the past 24 hour labs Assessment and Plan (1) Sepsis Status: Acute Assessment and plan: She has positive blood cultures for enterococcus and is on ampicillin. Will need to have negative blood cultures before consideration of a permanent pacemaker/AICD is done. 06/04/2016 this appears to be controlled with antibiotics. Repeating blood cultures. Once we have negative blood cultures and a permanent pacemaker can be planned. Current Visit: Yes (2) Urinary tract infection Status: Acute Assessment and plan: Continuing ampicillin for enterococcal UTI. Current Visit: Yes Qualifiers: Urinary tract infection type: site unspecified Hematuria presence: without hematuria Qualified Code(s): N39.0 - Urinary tract infection, site not specified (3) H/O aortic valve replacement Status: Acute Assessment and plan: Chronically on Coumadin for a mechanical aortic valve replacement in the past. Further records indicate that it is bioprosthetic. 06/04/2016 has a bioprosthetic aortic valve. Current Visit: No (4) Cardiac asystole Status: Acute Assessment and plan: Had long pauses and probably asystole as the mechanism of her syncope and arrest. 06/04/2016 this is the cause of her syncope. Has temporary pacemaker. Current Visit: Yes (5) Syncope, cardiogenic Status: Acute Assessment and plan: Arrhythmia was felt to be the cause of her syncope. Defer to Dr. Palacios. Current Visit: Yes (6) Acute respiratory failure Status: Acute Assessment and plan: This is likely due to the arrhythmia and some congestive heart failure. ABGs look good. Patient is presently sedated. Will hold sedation and start CPAP trials and see when we can get her extubated. 06/04/2016 ABGs look good post extubation. Does not have chronic lung disease. Current Visit: Yes
[2016-06-04] MEDS: SODIUM CHLORIDE 0.9% 1,000 ML IV SCH ×3 (08:06→16:03)
[2016-06-04] MEDS ORDERED: hydrALAZINE 20 MG/1 ML VIAL IV PRN (08:49)
--- NOTE | 2016-06-04 08:49 | Cardiology Progress Note ---
Dorinda Gomes April, RN, am scribing for, and in the presence of, Terrence Lambert MD 08:48. Assessment and Plan (1) Acute respiratory distress Status: Acute Current Visit: Yes (2) Cardiac asystole Status: Acute Current Visit: Yes (3) Dyslipidemia Status: Chronic Current Visit: Yes (4) Fever Status: Acute Current Visit: Yes (5) HTN (hypertension) Status: Chronic Current Visit: Yes (6) Syncope, cardiogenic Status: Acute Current Visit: Yes (7) H/O aortic valve replacement Status: Chronic Current Visit: Yes Cardiology - PN: Subj Interval history: Ms. Sullivan is a 89-year-old female who is from [place], in [place] visiting her sister. She has a history of hypertension, atrial fibrillation, aortic valve replacement, COPD, gout, and dyslipidemia. She had a syncopal episode with asystole. She had a temporary pacemaker placed on May 31, 2016. She had a ventricular fibrillation episode on Saturday and was coded. She is now extubated. She is awake and alert and responds appropriately. She is currently in a paced rhythm with heart rates in the 80s. Blood pressure currently is 157/73. She is not using any oxygen, her oxygen saturation is 92%. No temp noted during the night. She is currently taking losartan 100 mg p.o. daily, Lopressor 25 mg p.o. twice daily, diltiazem 60 mg p.o. 3 times daily. She is also anticoagulated on Coumadin 3 mg daily and takes a baby aspirin daily. Today's labs include: White blood count 20.9 H and H 10.5 and 32.5 Platelet count 282 INR 2.2 Potassium 3.6 BUN and creatinine 14 and 0.9 Magnesium 2.0 Troponin 0.430 (yesterday's troponin was 5.360) Patient examined, chart reviewed, and discussed with nurse Gwendolyn Seth RN. 89-year-old woman status post asystole/syncope with temporary pacemaker May 31 She has enterococcus UTI and bacteremia underfed with ampicillin and gentamicin Chronic atrial fibrillation with INR 2.2 today. Status post bioprosthetic aVR Hypertension Frailty Plan Continue ampicillin and gentamicin Awaiting final report on recent blood culture Will DC warfarin Hopefully permanent pacemaker mid week Exam (Progress Note) - Constitutional Vitals: Period Temp Pulse Resp BP Sys/Fitzgerald Pulse Ox Last 24 Hr 97.7 F-99.8 F 71-80 7-37 115-175/61-84 95-100 General appearance: no acute distress - Head Head exam: Present: abrasion - Respiratory Respiratory exam: Present: clear to auscultation bilaterally. Absent: accessory muscle use, chest wall tenderness - Cardiovascular Cardiovascular exam: Present: irregular rhythm (paced) - GI/Abdominal GI/Abdominal exam: Present: normal bowel sounds, soft. Absent: distended, tenderness - Extremities Exam Extremities exam: Absent: edema - Neurological Exam Neurological exam: Present: alert, oriented X3 - Skin Skin exam: Present: warm, dry Result/EKG - Labs CBC & BMP: 06/04/16 04:07 06/04/16 04:07 Lab Results: I have reviewed the past 24 hour labs Labs: Laboratory Results - last 24 hr 06/03/16 06/03/16 06/03/16 09:04 09:14 10:40 WBC RBC Hgb Hct MCV MCH MCHC RDW Plt Count MPV Neut % (Auto) Lymph % (Auto) [place] % (Auto) Eos % (Auto) Baso % (Auto) Neut # (Auto) Lymph # (Auto) [place] # (Auto) Eos # (Auto) Baso # (Auto) Total Counted Immature Gran % Nucleated RBC % Immature Gran # Segmented Neutrophils Lymphocytes Monocytes Nucleated RBCs # Platelet Estimate Pappenheimer Bodies INR PT Patient/Control Mix ABG pH 7.524 H ABG pCO2 32.7 L ABG pO2 140.2 H ABG HCO3 26.3 H ABG Total CO2 27.3 H ABG O2 Saturation 98.5 ABG Base Excess 3.8 H Sodium Potassium Chloride Carbon Dioxide Anion Gap BUN Creatinine GFR Calculation BUN/Creatinine Ratio Glucose POC Glucose Calculated Osmolality Calcium Phosphorus Magnesium Total Creatine Kinase 123 D CK-MB (CK-2) 6.0 H CK and CKMB Interp 4.9 Troponin I 5.360 H D Prealbumin Triglycerides Gentamicin Peak Gentamicin Trough 0.4 06/03/16 06/03/16 06/03/16 11:25 11:30 12:57 WBC RBC Hgb Hct MCV MCH MCHC RDW Plt Count MPV Neut % (Auto) Lymph % (Auto) [place] % (Auto) Eos % (Auto) Baso % (Auto) Neut # (Auto) Lymph # (Auto) [place] # (Auto) Eos # (Auto) Baso # (Auto) Total Counted Immature Gran % Nucleated RBC % Immature Gran # Segmented Neutrophils Lymphocytes Monocytes Nucleated RBCs # Platelet Estimate Pappenheimer Bodies INR PT Patient/Control Mix ABG pH ABG pCO2 ABG pO2 ABG HCO3 ABG Total CO2 ABG O2 Saturation ABG Base Excess Sodium Potassium Chloride Carbon Dioxide Anion Gap BUN Creatinine GFR Calculation BUN/Creatinine Ratio Glucose POC Glucose 115 H Calculated Osmolality Calcium Phosphorus Magnesium Total Creatine Kinase CK-MB (CK-2) CK and CKMB Interp Troponin I Prealbumin Triglycerides Gentamicin Peak Cancelled 8.0 Gentamicin Trough 06/03/16 06/03/16 06/04/16 13:35 18:00 04:07 WBC RBC Hgb Hct MCV MCH MCHC RDW Plt Count MPV Neut % (Auto) Lymph % (Auto) [place] % (Auto) Eos % (Auto) Baso % (Auto) Neut # (Auto) Lymph # (Auto) [place] # (Auto) Eos # (Auto) Baso # (Auto) Total Counted Immature Gran % Nucleated RBC % Immature Gran # Segmented Neutrophils Lymphocytes Monocytes Nucleated RBCs # Platelet Estimate Pappenheimer Bodies INR PT Patient/Control Mix ABG pH 7.529 H ABG pCO2 35.3 ABG pO2 114.5 H ABG HCO3 28.8 H ABG Total CO2 29.9 H ABG O2 Saturation 98.1 ABG Base Excess 6.0 H Sodium Potassium Chloride Carbon Dioxide Anion Gap BUN Creatinine GFR Calculation BUN/Creatinine Ratio Glucose POC Glucose 114 H Calculated Osmolality Calcium Phosphorus Magnesium Total Creatine Kinase 118 CK-MB (CK-2) 7.4 H CK and CKMB Interp 6.3 Troponin I 4.430 H Prealbumin Triglycerides Gentamicin Peak Gentamicin Trough 06/04/16 06/04/16 06/04/16 04:07 04:07 04:07 WBC 20.9 H RBC 3.76 L Hgb 10.5 L Hct 32.5 L MCV 86.4 L MCH 28 MCHC 32.3 RDW 14.7 Plt Count 282 MPV 11.0 Neut % (Auto) 87.7 H Lymph % (Auto) 5.2 L [place] % (Auto) 5.2 Eos % (Auto) 0.6 Baso % (Auto) 0.3 Neut # (Auto) 18.3 H Lymph # (Auto) 1.1 L [place] # (Auto) 1.1 H Eos # (Auto) 0.1 Baso # (Auto) 0.1 Total Counted 100 Immature Gran % 1.0 Nucleated RBC % 0.0 Immature Gran # 0.21 Segmented Neutrophils 95 H Lymphocytes 2 L Monocytes 3 Nucleated RBCs # 0.00 Platelet Estimate Normal Pappenheimer Bodies Net Coordinator INR 2.2 PT Patient/Control Mix 24.1 ABG pH ABG pCO2 ABG pO2 ABG HCO3 ABG Total CO2 ABG O2 Saturation ABG Base Excess Sodium 144 Potassium 3.6 Chloride 105 Carbon Dioxide 27 Anion Gap 15.6 H BUN 14 Creatinine 0.90 GFR Calculation 62 BUN/Creatinine Ratio 15.00 Glucose 114 H POC Glucose Calculated Osmolality 287.8 Calcium 8.8 Phosphorus Magnesium 2.0 Total Creatine Kinase CK-MB (CK-2) CK and CKMB Interp Troponin I Prealbumin Triglycerides Gentamicin Peak Gentamicin Trough 06/04/16 04:07 WBC RBC Hgb Hct MCV MCH MCHC RDW Plt Count MPV Neut % (Auto) Lymph % (Auto) [place] % (Auto) Eos % (Auto) Baso % (Auto) Neut # (Auto) Lymph # (Auto) [place] # (Auto) Eos # (Auto) Baso # (Auto) Total Counted Immature Gran % Nucleated RBC % Immature Gran # Segmented Neutrophils Lymphocytes Monocytes Nucleated RBCs # Platelet Estimate Pappenheimer Bodies INR PT Patient/Control Mix ABG pH ABG pCO2 ABG pO2 ABG HCO3 ABG Total CO2 ABG O2 Saturation ABG Base Excess Sodium 143 Potassium 3.6 Chloride 104 Carbon Dioxide 27 Anion Gap 15.6 H BUN 14 Creatinine 0.90 GFR Calculation 62 BUN/Creatinine Ratio 15.00 Glucose 112 H POC Glucose Calculated Osmolality 286.0 Calcium 8.8 Phosphorus 3.2 Magnesium Total Creatine Kinase CK-MB (CK-2) CK and CKMB Interp Troponin I Prealbumin 6.2 L Triglycerides 71 Gentamicin Peak Gentamicin Trough Quality Measures - VTE Contraindication to Pharmacological VTE Prophylaxis: Coagulopathy I, Terrence Lambert MD, personally performed the services described in this documentation, ascribed by Gwendolyn Seth RN in my presence, and it is both accurate and complete [id number] .
--- NOTE | 2016-06-04 09:50 | Hospitalist Progress Note ---
Assessment and Plan (1) Enterococcal bacteremia Status: Acute Assessment and plan: 1)ID- enterococcus in urine and blood. second set of BCx negative so far, but WBC remains elevated. She has been afebrile. Repeat CBC in am, continue Unasyn and gent. Once bacteremia clear will proceed with permanent pacer placement. 2)sepsis 3)bioprosthetic aortic valve. 4)underlying afib with SSS and asystole and then v fib arrest- temp pacer in place as above. Was supratherapeutic on coumadin on admission, now it is held and INR drifting down. monitor- may need a bridge therapy until pacer placed. 5)acute resp failure- she wanted ETT out and to never be intubated again. SHe has done well off vent. 6)cervical arthritis with fracture of bone spur- per Dr Omalley. 7)nutrition- eating reg diet. Current Visit: Yes (2) Enterococcus UTI Status: Acute Current Visit: Yes (3) HTN (hypertension) Status: Chronic Current Visit: Yes (4) H/O aortic valve replacement Status: Chronic Current Visit: Yes (5) Cardiac asystole Status: Acute Current Visit: Yes (6) Syncope, cardiogenic Status: Acute Current Visit: Yes (7) Sepsis Status: Acute Current Visit: Yes (8) Acute respiratory failure with hypoxia Status: Acute Current Visit: Yes Hospitalist: Subjective Interval history: Mrs Sullivan is sitting up in bed, alert and denies pain or shortness of breath. TOlerating a diet. Temporary pacer in right femoral. Exam - Constitutional Vitals: Period Temp Pulse Resp BP Sys/Fitzgerald Pulse Ox Last 24 Hr 97.5 F-99.8 F 71-84 7-37 125-175/61-84 91-100 General appearance: normal weight, no acute distress - Eye Eye exam: Present: EOMI. Absent: scleral icterus - Respiratory Respiratory exam: Present: clear to auscultation bilaterally - Cardiovascular Cardiovascular exam: Present: regular rate and rhythm - GI/Abdominal GI/Abdominal exam: Present: normal bowel sounds, soft. Absent: tenderness - Extremities Exam Extremities exam: Absent: edema - Neurological Exam Neurological exam: Present: alert, oriented X3 - Skin Skin exam: Present: warm, dry Results - Labs CBC & BMP: 06/04/16 04:07 03/06/17 04:07 Lab Results: I have reviewed the past 24 hour labs Quality Measures - VTE Contraindication to Pharmacological VTE Prophylaxis: Coagulopathy
[2016-06-04] MEDS ORDERED: ONDANSETRON 4 MG/2 ML VIAL IV PRN (10:17)
[2016-06-04] MEDS ORDERED: ONDANSETRON 4 MG/2 ML VIAL ONE (10:19)
[2016-06-04] MEDS: hydrALAZINE 20 MG/1 ML VIAL IV PRN (10:27)
[2016-06-04] MEDS: GENTAMICIN INJ 150 MG in SODIUM CHLORIDE 0.9% 100 ML IV SCH (11:15)
[2016-06-04] MEDS: DILTIAZEM 60 MG TABLET PO SCH ×3 (12:29→20:27)
[2016-06-04] MEDS: PANTOPRAZOLE 40 MG TABLET PO SCH (12:29)
[2016-06-04] MEDS: LOSARTAN 50 MG TABLET PO SCH (12:29)
[2016-06-04] MEDS: METOPROLOL TARTRATE 25 MG TABLET PO SCH ×2 (12:29→20:31)
[2016-06-04] MEDS: ASPIRIN EC 81 MG TABLET PO SCH (12:29)
[2016-06-04] MEDS: MULTIVITAMIN (OCUVITE) TABLET PO SCH ×2 (12:35→20:30)
[2016-06-04] MEDS: ALLOPURINOL 300 MG TABLET PO SCH (12:36)
[2016-06-04] MEDS: CALCIUM (CARBONATE) 500 MG TABLET PO SCH ×2 (12:36→20:31)
[2016-06-04] MEDS: FLUTICASONE/SALMETEROL 250-50 DISKUS 14 DOSE INH SCH ×2 (13:16→20:25)
--- NOTE | 2016-06-04 15:46 | Neurology Progress Note ---
Neurology - PN : Subjective Interval history: Patient is a stable neurologically. However she coded over the weekend. Exam (Progress Note) - Constitutional Vitals: Period Temp Pulse Resp BP Sys/Fitzgerald Pulse Ox Last 24 Hr 97.5 F-99.8 F 71-90 18-37 125-165/61-92 90-99 Exam: GENERAL: Patient is in no acute distress. NECK: Neck is supple. There is no JVD. No carotid bruits present. No thyroid masses. CVS: First and second heart sounds are normal. There is no S3 present. Regular rate and rhythm. RESPIRATORY: Lungs are clear to auscultation without any rales or rhonchi. ABDOMEN: Soft and non-tender. Bowel sounds are present. There is no hepatosplenomegaly. EXT: There is no palpable edema. Peripheral pulses are present. Skin: No rashes Central Nervous system: General: Alert, awake and Oriented x 3 Speech: Fluent Comprehension: Intact and normal Facial expressions: Normal Cranial Nerves: CN1/Olfactory: Normal CN II/ Optic: Normal, Visual [place] unreliable CN III, and : NORI & EOMI CN V: Normal & intact CN VII: face is symmetric CNVIII: Normal CN XI/X/XI/XII: Intact and Normal Motor: Bulk and Tone is normal. Strength symmetrical Sensory: Grossly intact for all the modalities of PP, LT and temp sense Reflexes: 1+ and symmetrical Cerebellar function: Not tested Toes: Equivocal Gait: Not tested Results - Labs CBC & BMP: 06/04/16 04:07 06/04/16 04:07 Assessment and Plan (1) C6 cervical fracture Status: Chronic Assessment and plan: C6 osteophyte fracture. Asymptomatic at this time No further recommendations from neuro standpoint. Sign off please call. Current Visit: Yes Qualifiers: Encounter type: initial encounter Fracture type: closed Fracture alignment: nondisplaced Quality Measures - VTE Contraindication to Pharmacological VTE Prophylaxis: Coagulopathy
[2016-06-04] MEDS: ATORVASTATIN 10 MG TABLET PO SCH (20:29)
[2016-06-05] MEDS: ACETAMINOPHEN 325 MG TABLET PO PRN ×2 (01:09→14:49)
[2016-06-05] MEDS: SODIUM CHLORIDE 0.9% 1,000 ML IV SCH ×2 (01:12→15:45)
[2016-06-05] MEDS: AMPICILLIN/SULBACTAM 3,000 MG in SODIUM CHLORIDE 0.9% 100 ML IV SCH ×4 (03:31→20:50)
[2016-06-05 04:21] LABS: Basophils # 0.1 10*3/uL (0.0-0.2); Basophils % 0.3 % (0.0-0.8); Eosinophils # 0.2 10*3/uL (0.0-0.87); Eosinophils % 1.2 % (0.00-10.9); Hematocrit 30.7 VOL% (35.7-47.0); Hemoglobin 9.9 GM/DL (12.0-16.0); Immature Granulocytes % 0.9 %; Immature Granulocytes Absolute 0.15 #; Lymphocytes # 1.1 10*3/uL (1.4-4.0); Lymphocytes % 6.3 % (21.3-54.2); Mean Corpuscular HGB Conc 32.2 GM/DL (32-36); Mean Corpuscular Hemoglobin 27 PG (27-34); Mean Platelet Volume 10.8 FL (9.6-12.0); Monocytes # 0.9 10*3/uL (0.11-0.8); Monocytes % 5.4 % (1.7-12.7); Neutrophils # 14.9 10*3/uL (1.4-7.4); Neutrophils % 85.9 % (38.7-73.9); Platelet Count 299 T/CUMM (130-400); Red Blood Count 3.61 MC/CUMM (3.8-5.5); Red Cell Distribution Width 14.9 % (9.3-17.3); White Blood Count 17.3 T/CUMM (4-12)
[2016-06-05 04:31] LABS: INR 2.5
[2016-06-05 04:32] LABS: PT Patient Result 28.6 SECS
--- NOTE | 2016-06-05 07:16 | Pulmonology Progress Note ---
Pulmonary - PN: Subj Interval history: This 89-year-old white female had asystole with syncope. She has a temporary pacemaker. She was ventilated but was able to be extubated yesterday. She has a urinary tract infection with enterococcus with enterococcal sepsis. She had another set of blood cultures drawn yesterday. If they turn down attendant to be negative then we could proceed with a permanent pacemaker/AICD. At present she is alert responsive. She is a little bit dysarthric. ABGs look good post extubation. 06/05/2016 patient has done well since extubation. O2 sats in high 90s on nasal oxygen. She is comfortable. Last set of blood cultures are negative thus far. Probably could proceed with permanent pacemaker. Exam (Progress Note) - Constitutional Vitals: Period Temp Pulse Resp BP Sys/Fitzgerald Pulse Ox Last 24 Hr 97.7 F-98.9 F 70-90 12-38 102-168/55-92 90-97 Exam: Vital signs normal. Pupils react to light. She is alert and appears oriented. Her speech is a little dysarthric. Neck is supple no bruits. Chest reveals a few scattered rhonchi. Heart paced rhythm no murmurs. Abdomen soft nontender no masses. Bowel sounds present. Extremities no clubbing cyanosis edema. Calves nontender. Results - Labs CBC & BMP: 06/05/16 03:58 06/04/16 04:07 Lab Results: I have reviewed the past 24 hour labs Assessment and Plan (1) Sepsis Status: Acute Assessment and plan: She has positive blood cultures for enterococcus and is on ampicillin. Will need to have negative blood cultures before consideration of a permanent pacemaker/AICD is done. 06/04/2016 this appears to be controlled with antibiotics. Repeating blood cultures. Once we have negative blood cultures and a permanent pacemaker can be planned. 06/05/2016 continuing with antibiotics. Last set of blood cultures are negative thus far. Current Visit: Yes (2) Urinary tract infection Status: Acute Assessment and plan: Continuing ampicillin for enterococcal UTI. 06/05/2016 continuing ampicillin for enterococcal UTI and sepsis. Needs a total of about 2 weeks more. Current Visit: Yes Qualifiers: Urinary tract infection type: site unspecified Hematuria presence: without hematuria Qualified Code(s): N39.0 - Urinary tract infection, site not specified (3) H/O aortic valve replacement Status: Chronic Assessment and plan: Chronically on Coumadin for a mechanical aortic valve replacement in the past. Further records indicate that it is bioprosthetic. 06/04/2016 has a bioprosthetic aortic valve. Current Visit: Yes (4) Cardiac asystole Status: Acute Assessment and plan: Had long pauses and probably asystole as the mechanism of her syncope and arrest. 06/04/2016 this is the cause of her syncope. Has temporary pacemaker. 06/05/2016 does not appear to have any significant hypoxic brain injury. Temporary pacemaker in place. Plan for permanent pacemaker when sepsis controlled. Again last blood culture negative thus far. Current Visit: Yes (5) Syncope, cardiogenic Status: Acute Assessment and plan: Arrhythmia was felt to be the cause of her syncope. Defer to Dr. Palacios. 06/05/2016 due to asystole. Current Visit: Yes (6) Acute respiratory failure Status: Acute Assessment and plan: This is likely due to the arrhythmia and some congestive heart failure. ABGs look good. Patient is presently sedated. Will hold sedation and start CPAP trials and see when we can get her extubated. 06/04/2016 ABGs look good post extubation. Does not have chronic lung disease. 06/05/2016 this is much improved. Current Visit: Yes
[2016-06-05] MEDS: DILTIAZEM 60 MG TABLET PO SCH ×3 (08:54→20:52)
[2016-06-05] MEDS: METOPROLOL TARTRATE 25 MG TABLET PO SCH ×2 (08:56→20:52)
[2016-06-05] MEDS: ALLOPURINOL 300 MG TABLET PO SCH (08:56)
[2016-06-05] MEDS: ASPIRIN EC 81 MG TABLET PO SCH (08:56)
[2016-06-05] MEDS: PANTOPRAZOLE 40 MG TABLET PO SCH (08:56)
[2016-06-05] MEDS: LOSARTAN 50 MG TABLET PO SCH (08:56)
[2016-06-05] MEDS: CALCIUM (CARBONATE) 500 MG TABLET PO SCH ×2 (09:02→20:52)
[2016-06-05] MEDS: MULTIVITAMIN (OCUVITE) TABLET PO SCH ×2 (09:03→20:52)
[2016-06-05] MEDS: FLUTICASONE/SALMETEROL 250-50 DISKUS 14 DOSE INH SCH ×2 (09:03→20:54)
--- NOTE | 2016-06-05 09:36 | Cardiology Progress Note ---
Dorinda Gomes April, RN, am scribing for, and in the presence of, Terrence Lambert MD 09:36. Assessment and Plan (1) Acute respiratory distress Status: Acute Current Visit: Yes (2) Cardiac asystole Status: Acute Current Visit: Yes (3) Dyslipidemia Status: Chronic Current Visit: Yes (4) Fever Status: Acute Current Visit: Yes (5) HTN (hypertension) Status: Chronic Current Visit: Yes (6) Syncope, cardiogenic Status: Acute Current Visit: Yes (7) H/O aortic valve replacement Status: Chronic Current Visit: Yes Cardiology - PN: Subj Interval history: Patient is seen resting in bed, awake and alert. Oxygen in use via nasal biprong. O2 sat 98%. She denies chest pain, shortness of breath, dizziness, palpitations, or feelings of syncope or near syncope. She is still on temporary pacer with heart rates in the 80s. Currently blood pressure is 144/ 123. She was afebrile throughout the night. Labs: White count is down to 17.3 Hemoglobin and hematocrit 9.9 and 30.7 Platelet count 299 INR 2.5--her warfarin has been discontinued Sodium 143 potassium 3.6 chloride 104 magnesium 2.0 Troponin is down to 4.430, from 5.360 yesterday Urine culture was negative Blood cultures are negative thus far 89-year-old woman status post asystole/syncope with temporary pacemaker May 31 She has enterococcus UTI and bacteremia underfed with ampicillin and gentamicin Chronic atrial fibrillation with INR 2.2 today. Status post bioprosthetic aVR Hypertension Frailty Cardiology addendum Patient examined and chart reviewed. And discussed with nurse Gwendolyn Seth RN. Urine culture is negative at 48 hours. Blood culture negative at 24 hours. Coumadin was stopped yesterday. INR today is 2.5. Recheck CBC and INR tomorrow Continue gentamicin and ampicillin for enterococcal bacteremia Hopefully pacemaker later this week Exam (Progress Note) - Constitutional Vitals: Period Temp Pulse Resp BP Sys/Fitzgerald Pulse Ox Last 24 Hr 97.7 F-98.9 F 70-90 12-38 102-168/55-92 90-97 General appearance: no acute distress, over weight - Head Head exam: Present: abrasion - Eye Eye exam: Absent: periorbital swelling, laceration to eyelids - Neck Neck exam: Absent: tenderness - Respiratory Respiratory exam: Present: clear to auscultation bilaterally, other (Oxygen via nasal biprong). Absent: accessory muscle use, chest wall tenderness - Cardiovascular Cardiovascular exam: Present: irregular rhythm - GI/Abdominal GI/Abdominal exam: Present: normal bowel sounds, soft. Absent: distended, tenderness - Extremities Exam Extremities exam: Absent: edema - Neurological Exam Neurological exam: Present: alert, oriented X3 - Psychiatric Psychiatric exam: Present: normal affect, normal mood - Skin Skin exam: Present: warm, dry Result/EKG - Labs CBC & BMP: 06/05/16 03:58 06/04/16 04:07 Labs: Laboratory Results - last 24 hr 06/05/16 06/05/16 03:58 03:58 WBC 17.3 H RBC 3.61 L Hgb 9.9 L Hct 30.7 L MCV 85.0 L MCH 27 MCHC 32.2 RDW 14.9 Plt Count 299 MPV 10.8 Neut % (Auto) 85.9 H Lymph % (Auto) 6.3 L Reynolds % (Auto) 5.4 Eos % (Auto) 1.2 Baso % (Auto) 0.3 Neut # (Auto) 14.9 H Lymph # (Auto) 1.1 L Reynolds # (Auto) 0.9 H Eos # (Auto) 0.2 Baso # (Auto) 0.1 Immature Gran % 0.9 Nucleated RBC % 0.0 Immature Gran # 0.15 Nucleated RBCs # 0.00 INR 2.5 PT Patient/Control Mix 28.6 Quality Measures - VTE Contraindication to Pharmacological VTE Prophylaxis: Coagulopathy I, Terrence Lambert MD, personally performed the services described in this documentation, ascribed by Gwendolyn Seth RN in my presence, and it is both accurate and complete 936 .
--- NOTE | 2016-06-05 09:49 | Hospitalist Progress Note ---
Assessment and Plan (1) Enterococcal bacteremia Status: Acute Assessment and plan: 1)ID- enterococcus in urine and blood. second set of BCx negative so far, but WBC remains elevated, though down form yesterday. She has been afebrile. Repeat CBC in am, continue Unasyn and gent. Once bacteremia clear will proceed with permanent pacer placement. 2)sepsis- she was bacteremic but had cardiogenic shock at time of cods, not septic shock. 3)bioprosthetic aortic valve. 4)underlying afib with SSS and asystole and then v fib arrest- temp pacer in place as above. Was supratherapeutic on coumadin on admission, now it is held and INR drifting down. monitor- may need a bridge therapy until pacer placed. Goal is pacer placement tomorrow or the next day. 5)acute resp failure- she wanted ETT out and to never be intubated again. She has done well off vent. 6)cervical arthritis with fracture of bone spur- per Dr Omalley. 7)nutrition- eating reg diet. 8)UOP decerased, monitor. she is eating a regular diet, and has some NS running. creatinine stable. Current Visit: Yes (2) Enterococcus UTI Status: Acute Current Visit: Yes (3) HTN (hypertension) Status: Chronic Current Visit: Yes (4) H/O aortic valve replacement Status: Chronic Current Visit: Yes (5) Cardiac asystole Status: Acute Current Visit: Yes (6) Syncope, cardiogenic Status: Acute Current Visit: Yes (7) Sepsis Status: Acute Current Visit: Yes (8) Acute respiratory failure with hypoxia Status: Acute Current Visit: Yes Hospitalist: Subjective Interval history: Mrs Sullivan is awake and oriented and asks only for a washcloth for her face. Denies pain or shortness of breath. No events overnight. Exam - Constitutional Vitals: Period Temp Pulse Resp BP Sys/Fitzgerald Pulse Ox Last 24 Hr 97.7 F-98.9 F 70-90 12-38 102-168/55-110 91-97 General appearance: normal weight, no acute distress - Head Head exam: Present: normocephalic - Eye Eye exam: Present: EOMI. Absent: scleral icterus - Respiratory Respiratory exam: Present: clear to auscultation bilaterally - Cardiovascular Cardiovascular exam: Present: regular rate and rhythm - GI/Abdominal GI/Abdominal exam: Present: normal bowel sounds, soft. Absent: tenderness - Extremities Exam Extremities exam: Absent: edema Results - Labs CBC & BMP: 06/05/16 03:58 06/04/16 04:07 Lab Results: I have reviewed the past 24 hour labs Quality Measures - VTE Contraindication to Pharmacological VTE Prophylaxis: Coagulopathy
[2016-06-05] MEDS: GENTAMICIN INJ 150 MG in SODIUM CHLORIDE 0.9% 100 ML IV SCH (12:48)
[2016-06-05] MEDS: DESITIN 4OZ/NYSTATIN 15 GRAM MIXTURE PASTE TOP SCH ×2 (15:42→20:53)
[2016-06-05] MEDS ORDERED: ceFAZolin 1,000 MG VIAL IRRIG ONE (18:40)
[2016-06-05] MEDS ORDERED: VANCOMYCIN INJ 1,000 MG in SODIUM CHLORIDE 0.9% 250 ML IV ONE (18:42)
--- NOTE | 2016-06-05 18:44 | Electrophysiology Progress Not ---
Assessment and Plan (1) Cardiac asystole Status: Acute Assessment and plan: 89-year-old female, with permanent atrial fibrillation, status post aortic valve replacement, syncope, likely due to bradycardia. E. faecalis UTI, sepsis. 3: RVF temp PM implant, then reposition 4: VF arrest -PVT/VF. No recurrence. Now Vpaced at 70 bpm, with occ. conducted beats. Cont to replete lytes. This was likely due to sepsis, prolonged QTc on EKG, relative bradycardia. Cont BB. -Bioprosthetic AVR. There was no evidence of large vegetations on transthoracic echo. High risk infection for endocarditis and the sepsis was slow to resolve despite proper abx. -AF, IVCD, intermittent AVB, s/p critical bradycardia. We again discussed risk/ benefits of management options. We will proceed with a PM implant and temporary PM explant tomorrow. Family understands high risk for periprocedural complications. -Anesthesia consult. Planning MAC for the PM implant -Cont to hold coumadin. If INR <3 tomorrow, no need for reversal -Cont Unasyn. I will also use vanco preop -Bed rest with legs straight while temp PM in place. Current Visit: Yes (2) Atrial fibrillation Status: Inactive Current Visit: Yes Qualifiers: Atrial fibrillation type: chronic Qualified Code(s): I48.2 - Chronic atrial fibrillation (3) Dyslipidemia Status: Chronic Current Visit: Yes (4) Fever Status: Acute Current Visit: Yes (5) HTN (hypertension) Status: Chronic Current Visit: Yes (6) Syncope, cardiogenic Status: Acute Current Visit: Yes (7) Urinary tract infection Status: Acute Current Visit: Yes Qualifiers: Urinary tract infection type: site unspecified Hematuria presence: without hematuria Qualified Code(s): N39.0 - Urinary tract infection, site not specified (8) Valvular disease Status: Acute Current Visit: Yes (9) Gout Status: Acute Current Visit: No (10) H/O aortic valve replacement Status: Chronic Current Visit: Yes Electrophysiology Subjective Interval history: She is having a coughing spell. Pulling up both knees, with RFV temp wire in place. Family was helping her with dinner, including claudio eileen and solid foods. Telemtry: AF, with demand VVI pacing. Repeat BC, UC negative. Afebrile today. WBC still elev, slightly down. Exam - Constitutional Vitals: Period Temp Pulse Resp BP Sys/Fitzgerald Pulse Ox Last 24 Hr 97.7 F-99.1 F 71-92 12-36 102-168/70-121 93-97 General appearance: over weight - Head Head exam: Present: normal inspection - Eye Eye exam: Absent: conjunctival injection Pupils: Absent: dilated - ENT ENT exam: Present: normal external ear exam - Neck Neck exam: Present: normal inspection - Respiratory Respiratory exam: Present: decreased breath sounds, rhonchi - Cardiovascular Cardiovascular exam: Present: irregular rhythm, systolic murmur - GI/Abdominal GI/Abdominal exam: Present: normal bowel sounds - Extremities Exam Extremities exam: Present: normal inspection, normal capillary refill, edema (1+ ) - Neurological Exam Neurological exam: Present: alert - Psychiatric Psychiatric exam: Present: anxious - Skin Skin exam: Present: normal color, warm. Absent: cyanosis Results - Labs CBC & BMP: 06/05/16 03:58 06/04/16 04:07 Lab Results: I have reviewed the past 24 hour labs Quality Measures - VTE Contraindication to Pharmacological VTE Prophylaxis: Coagulopathy
[2016-06-05] MEDS: ATORVASTATIN 10 MG TABLET PO SCH (20:51)
[2016-06-06] MEDS: AMPICILLIN/SULBACTAM 3,000 MG in SODIUM CHLORIDE 0.9% 100 ML IV SCH ×4 (02:55→21:15)
[2016-06-06 04:39] LABS: Basophils # 0.1 10*3/uL (0.0-0.2); Basophils % 0.3 % (0.0-0.8); Eosinophils % 0.2 % (0.00-10.9); Hematocrit 32.3 VOL% (35.7-47.0); Hemoglobin 10.2 GM/DL (12.0-16.0); Immature Granulocytes Absolute 0.22 #; Lymphocytes % 4.5 % (21.3-54.2); Mean Corpuscular HGB Conc 31.6 GM/DL (32-36); Mean Corpuscular Hemoglobin 28 PG (27-34); Mean Corpuscular Volume 88.7 FL (87-102); Mean Platelet Volume 10.7 FL (9.6-12.0); Monocytes # 1.3 10*3/uL (0.11-0.8); Monocytes % 5.8 % (1.7-12.7); Neutrophils # 19.9 10*3/uL (1.4-7.4); Neutrophils % 88.2 % (38.7-73.9); Platelet Count 311 T/CUMM (130-400); Red Blood Count 3.64 MC/CUMM (3.8-5.5); Red Cell Distribution Width 15.2 % (9.3-17.3); White Blood Count 22.5 T/CUMM (4-12)
[2016-06-06 05:08] LABS: Calcium 9.2 MG/DL (8.5-10.1); Osmolality,Calculated 291.6 MOS/KG (273-304); Potassium 3.7 MMOL/L (3.5-5.1)
[2016-06-06 05:26] LABS: Eosinophils 1 % (0-10); Hypochromasia 1+; Lymphocytes 5 % (20-55); Ovalocytes Slight; Platelet Estimate Adequate; Segmented Neutrophils 91 % (50-85); Total Cells Counted 100
[2016-06-06] MEDS: SODIUM CHLORIDE 0.9% 1,000 ML IV SCH ×3 (05:40→19:00)
[2016-06-06 06:38] LABS: INR 4.5
[2016-06-06 06:41] LABS: PT Patient Result 52.2 SECS
--- NOTE | 2016-06-06 07:09 | Pulmonology Progress Note ---
Pulmonary - PN: Subj Interval history: This 89-year-old white female had asystole with syncope. She has a temporary pacemaker. She was ventilated but was able to be extubated yesterday. She has a urinary tract infection with enterococcus with enterococcal sepsis. She had another set of blood cultures drawn yesterday. If they head turning machine operator to be negative then we could proceed with a permanent pacemaker/AICD. At present she is alert responsive. She is a little bit dysarthric. ABGs look good post extubation. 06/05/2016 patient has done well since extubation. O2 sats in high 90s on nasal oxygen. She is comfortable. Last set of blood cultures are negative thus far. Probably could proceed with permanent pacemaker. 06/06/2016 patient is afebrile and has negative cultures from 3 days back. She is set up for permanent pacemaker today. The mechanism of her cardiac arrest was felt to be cardiac rhythm problems with asystole. Patient is responsive. She continues to be a bit tachypneic probably some congestive heart failure. Exam (Progress Note) - Constitutional Vitals: Period Temp Pulse Resp BP Sys/Fitzgerald Pulse Ox Last 24 Hr 98.2 F-99.8 F 70-92 15-42 119-179/69-121 92-96 Exam: Vital signs normal, except respiratory rate in the low to mid 30s. Pupils react to light. She is alert and appears oriented. Her speech is a little dysarthric. Neck is supple no bruits. Chest reveals a few scattered rhonchi. Heart paced rhythm no murmurs. Abdomen soft nontender no masses. Bowel sounds present. Extremities no clubbing cyanosis edema. Calves nontender. Results - Labs CBC & BMP: 06/06/16 04:23 06/06/16 04:23 Lab Results: I have reviewed the past 24 hour labs - Diagnostic Findings Procedure: Chest x-ray: pending Assessment and Plan (1) Sepsis Status: Acute Assessment and plan: She has positive blood cultures for enterococcus and is on ampicillin. Will need to have negative blood cultures before consideration of a permanent pacemaker/AICD is done. 06/04/2016 this appears to be controlled with antibiotics. Repeating blood cultures. Once we have negative blood cultures and a permanent pacemaker can be planned. 06/05/2016 continuing with antibiotics. Last set of blood cultures are negative thus far. 06/06/2016 sepsis appears to be controlled. Current Visit: Yes (2) Urinary tract infection Status: Acute Assessment and plan: Continuing ampicillin for enterococcal UTI. 06/05/2016 continuing ampicillin for enterococcal UTI and sepsis. Needs a total of about 2 weeks more. 06/06/2016 continuing antibiotics for enterococcal UTI with sepsis. Needs antibiotics through about 17 June. Current Visit: Yes Qualifiers: Urinary tract infection type: site unspecified Hematuria presence: without hematuria Qualified Code(s): N39.0 - Urinary tract infection, site not specified (3) H/O aortic valve replacement Status: Chronic Assessment and plan: Chronically on Coumadin for a mechanical aortic valve replacement in the past. Further records indicate that it is bioprosthetic. 06/04/2016 has a bioprosthetic aortic valve. 06/06/2016 this is all the more reason for at least 2 weeks of IV antibiotics for the enterococcal sepsis. Current Visit: Yes (4) Cardiac asystole Status: Acute Assessment and plan: Had long pauses and probably asystole as the mechanism of her syncope and arrest. 06/04/2016 this is the cause of her syncope. Has temporary pacemaker. 06/05/2016 does not appear to have any significant hypoxic brain injury. Temporary pacemaker in place. Plan for permanent pacemaker when sepsis controlled. Again last blood culture negative thus far. 06/06/2016 mental status is good. For permanent pacemaker today. Current Visit: Yes (5) Syncope, cardiogenic Status: Acute Assessment and plan: Arrhythmia was felt to be the cause of her syncope. Defer to Dr. Palacios. 06/05/2016 due to asystole. Current Visit: Yes (6) Acute respiratory failure Status: Acute Assessment and plan: This is likely due to the arrhythmia and some congestive heart failure. ABGs look good. Patient is presently sedated. Will hold sedation and start CPAP trials and see when we can get her extubated. 06/04/2016 ABGs look good post extubation. Does not have chronic lung disease. 06/05/2016 this is much improved. 06/06/2016 patient has done well since extubation except for tachypnea. O2 sats look okay. Chest x-ray is pending Current Visit: Yes
--- NOTE | 2016-06-06 07:59 | XRay Report ---
Portable chest Date: 06/06/2016 Clinical history: Respiratory preoperative evaluation Comparison: 06/03/2016 Technique: Portable AP sitting chest Findings: Stable cardiomegaly with prior median sternotomy and cardiac valve replacement. Calcification in the wall of the tortuous thoracic aorta. Interval removal of the endotracheal tube and nasogastric tube . Residual atelectasis at the left lung base with small pleural effusions. Stable mediastinum with degenerative changes. Impression: Interval removal of the endotracheal tube and nasogastric tube. Persistent cardiomegaly in patient with prior median sternotomy and cardiac valve replacement. Small pleural effusions with stable atelectasis/infiltration/scarring at left lung base. PROCEDURE INTERPRETED AT [facility], [place] DEPARTMENT OF RADIOLOGY Final Report Signed by: Dr. Ladan Pierce
--- NOTE | 2016-06-06 08:30 | EKG Report ---
Stationary ECG Study [facility] Test Date: 06/06/2016 8:30:38 AM Pat Name: ERIC ALLISON Department: Room: 126 Gender: F Mice Raiser: : [phone] Requested by: Jason Palacios Order Number: [id number] Reading MD: VIGNESH SALAZAR Intervals [place] Rate: 79 P: 999 SD: 0 QRS: -41 QRSD: 150 T: -10 QT: 456 QTc: 490 Interpretive Statements ATRIAL FIBRILLATION MARKED LEFT AXIS DEVIATION RIGHT BUNDLE BRANCH BLOCK Electronically Signed On 06-06-16 18:47:02 FIELD CHECKER by VIGNESH SALAZAR [email or web address]
[2016-06-06] MEDS: DILTIAZEM 60 MG TABLET PO SCH ×3 (09:32→21:14)
[2016-06-06] MEDS: METOPROLOL TARTRATE 25 MG TABLET PO SCH ×2 (09:32→21:14)
[2016-06-06] MEDS: ASPIRIN EC 81 MG TABLET PO SCH (09:32)
[2016-06-06] MEDS ORDERED: PHYTONADIONE 10 MG/1 ML AMP SUBCUT ONE (09:56)
--- NOTE | 2016-06-06 09:59 | Hospitalist Progress Note ---
Assessment and Plan (1) Enterococcal bacteremia Status: Acute Assessment and plan: 1)ID- enterococcus in urine and blood. second set of BCx negative, but WBC remains elevated, and she has had low grade fever. THis is day 7 of IV abx. suspect endocarditis. Dr Lambert plans FREEDOM to look more closely at valves. Repeat CBC in am, continue Unasyn and gent. 2)sepsis- she was bacteremic but had cardiogenic shock at time of code, not septic shock. shock resolved. 3)bioprosthetic aortic valve. 4)underlying afib with SSS and asystole and then v fib arrest- temp pacer in place as above. Was supratherapeutic on coumadin on admission, now it is held and INR much higher- likely related to antibiotics. Dr Palacios plans external pacer placement today after FFP and vit K. 5)acute resp failure- she wanted ETT out and to never be intubated again. She has done well off vent. 6)cervical arthritis with fracture of bone spur- per Dr Omalley. 7)nutrition- eating reg diet. Current Visit: Yes (2) Enterococcus UTI Status: Acute Current Visit: Yes (3) HTN (hypertension) Status: Chronic Current Visit: Yes (4) H/O aortic valve replacement Status: Chronic Current Visit: Yes (5) Cardiac asystole Status: Acute Current Visit: Yes (6) Syncope, cardiogenic Status: Acute Current Visit: Yes (7) Sepsis Status: Acute Current Visit: Yes (8) Acute respiratory failure with hypoxia Status: Acute Current Visit: Yes Hospitalist: Subjective Interval history: Mrs Sullivan has no complaints this morning, but she had low grade fever, WBC up again, INR now 4.5. Discussed with both Dr Lambert, Dr Palacios and Dr Martinez- cultures of blood negative after initial positive UCx adn BCx for Enterococcus. She has not had any new focal symptoms and her CXR looks improved. 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 Exam - Constitutional Vitals: Period Temp Pulse Resp BP Sys/Fitzgerald Pulse Ox Last 24 Hr 98.0 F-99.8 F 70-92 15-42 119-189/66-105 92-96 General appearance: normal weight, no acute distress - Eye Eye exam: Present: EOMI. Absent: scleral icterus - Respiratory Respiratory exam: Present: clear to auscultation bilaterally - Cardiovascular Cardiovascular exam: Present: regular rate and rhythm - GI/Abdominal GI/Abdominal exam: Present: normal bowel sounds, soft. Absent: tenderness - Extremities Exam Extremities exam: Absent: edema - Neurological Exam Neurological exam: Present: alert, oriented X3, other (dysarthric as her baseline) - Skin Skin exam: Present: warm, dry Results - Labs CBC & BMP: 06/06/16 04:23 06/06/16 04:23 Lab Results: I have reviewed the past 24 hour labs Quality Measures - VTE Contraindication to Pharmacological VTE Prophylaxis: Coagulopathy
[2016-06-06] MEDS: PANTOPRAZOLE 40 MG TABLET PO SCH (10:15)
[2016-06-06] MEDS: DESITIN 4OZ/NYSTATIN 15 GRAM MIXTURE PASTE TOP SCH ×2 (10:15→21:15)
[2016-06-06] MEDS: FLUTICASONE/SALMETEROL 250-50 DISKUS 14 DOSE INH SCH (10:16)
[2016-06-06] MEDS: ALLOPURINOL 300 MG TABLET PO SCH (10:16)
[2016-06-06] MEDS: CALCIUM (CARBONATE) 500 MG TABLET PO SCH ×2 (10:16→21:14)
[2016-06-06] MEDS: LOSARTAN 50 MG TABLET PO SCH (10:16)
[2016-06-06] MEDS: MULTIVITAMIN (OCUVITE) TABLET PO SCH ×2 (10:16→21:14)
--- NOTE | 2016-06-06 10:19 | Cardiology Progress Note ---
Assessment and Plan (1) Acute respiratory distress Status: Acute Current Visit: Yes (2) Cardiac asystole Status: Acute Current Visit: Yes (3) Dyslipidemia Status: Chronic Current Visit: Yes (4) Fever Status: Acute Current Visit: Yes (5) HTN (hypertension) Status: Chronic Current Visit: Yes (6) Syncope, cardiogenic Status: Acute Current Visit: Yes (7) H/O aortic valve replacement Status: Chronic Current Visit: Yes Cardiology - PN: Subj Interval history: Cardiology note 89-year-old woman status post asystole now with temporary pacemaker for 1 week from the right femoral vein approach White count spiked to 22.5 today Most recent blood cultures are negative at 48 hours Urine culture negative at 48 hours Irregular rhythm with 2/6 diastolic ejection right upper right sternal border. I cannot hear any AI Abdomen soft benign Decreased breath sounds few rhonchi on the left base Impression Status post marked bradycardia/asystole with temporary pacemaker Enterococcus bacteremia. Recent blood cultures are negative at 48 hours. However white count is up to 22.5. Must consider SBE on bioprosthetic valve Bioprosthetic aVR Chronic A. fib Hypertension INR 4.5, despite no Coumadin for the past 3 days Advanced age and frailty Plan Discussed with Dr. Palacios. FFP FREEDOM today to rule out SBE Semipermanent percutaneous VVI pacemaker Exam (Progress Note) - Constitutional Vitals: Period Temp Pulse Resp BP Sys/Fitzgerald Pulse Ox Last 24 Hr 98.0 F-99.8 F 70-92 15-42 119-189/66-105 92-96 Result/EKG - Labs CBC & BMP: 06/06/16 04:23 06/06/16 04:23 Labs: Laboratory Results - last 24 hr 06/06/16 06/06/16 06/06/16 04:23 04:23 04:23 WBC 22.5 H D RBC 3.64 L Hgb 10.2 L Hct 32.3 L MCV 88.7 MCH 28 MCHC 31.6 L RDW 15.2 Plt Count 311 MPV 10.7 Neut % (Auto) 88.2 H Lymph % (Auto) 4.5 L [place] % (Auto) 5.8 Eos % (Auto) 0.2 Baso % (Auto) 0.3 Neut # (Auto) 19.9 H Lymph # (Auto) 1.0 L [place] # (Auto) 1.3 H Eos # (Auto) 0.0 Baso # (Auto) 0.1 Total Counted 100 Immature Gran % 1.0 Nucleated RBC % 0.0 Immature Gran # 0.22 Segmented Neutrophils 91 H Lymphocytes 5 L Monocytes 3 Eosinophils 1 Nucleated RBCs # 0.00 Platelet Estimate Adequate Hypochromasia 1+ Ovalocytes Slight Morphology Comment INR PT Patient/Control Mix Circ Anticoag PTT 36.4 Sodium 146 H Potassium 3.7 Chloride 107 Carbon Dioxide 27 Anion Gap 15.7 H BUN 16 Creatinine 0.70 GFR Calculation 83 BUN/Creatinine Ratio 22.00 H Glucose 115 H Calculated Osmolality 291.6 Calcium 9.2 06/06/16 06:15 WBC RBC Hgb Hct MCV MCH MCHC RDW Plt Count MPV Neut % (Auto) Lymph % (Auto) [place] % (Auto) Eos % (Auto) Baso % (Auto) Neut # (Auto) Lymph # (Auto) [place] # (Auto) Eos # (Auto) Baso # (Auto) Total Counted Immature Gran % Nucleated RBC % Immature Gran # Segmented Neutrophils Lymphocytes Monocytes Eosinophils Nucleated RBCs # Platelet Estimate Hypochromasia Ovalocytes Morphology Comment INR 4.5 PT Patient/Control Mix 52.2 D Circ Anticoag PTT Sodium Potassium Chloride Carbon Dioxide Anion Gap BUN Creatinine GFR Calculation BUN/Creatinine Ratio Glucose Calculated Osmolality Calcium Quality Measures - VTE Contraindication to Pharmacological VTE Prophylaxis: Coagulopathy
--- NOTE | 2016-06-06 10:21 | History and Physical Update ---
Sedation H&P Update - History and Physical H&P was reviewed, the patient examined and there: are no changes in the patients condition since last H&P was completed. - Dictation Physical: refer to H&P completed by admitting physician - Physical Exam Mental Status: alert and oriented Heart: other Lung: clear to auscultation, other (decreased) Abdomen: within normal limits Vitals: within normal limits History and Physical Changes: Discussed plan with family and Dr. Lambert. She continues to be septic. We will plan for a semipermanent externalized VVI pacemaker implant from right axillary access. FREEDOM, to rule out prosthetic valve endocarditis, removal of temporary pacemaker wire. High risk of periprocedural complications was discussed. - Sedation Plan for Sedation: MAC Patient Consent: Procedure disscussed with patient and patinet has consented., Risks and benefits were discussed with patient,including infection,, bleeding, injury to surrounding structures, seizure, temporary nerve, Patient understands and accepts potential risks/benefits and agrees to ASA Class: V Airway Assessment: Class III: Soft palate, base of uvula visible
[2016-06-06] MEDS ORDERED: ceFAZolin 1,000 MG VIAL IRRIG ONE (10:30)
[2016-06-06] MEDS: GENTAMICIN INJ 150 MG in SODIUM CHLORIDE 0.9% 100 ML IV SCH (10:36)
[2016-06-06 10:53] LABS: INR 2.2
[2016-06-06 10:59] LABS: PT Patient Result 24.6 SECS
[2016-06-06] MEDS ORDERED: HEPARIN/NACL 0.9% 2 UNITS/ML 500 ML IV ONE (11:39)
[2016-06-06] MEDS ORDERED: LIDOCAINE 1% 20 ML VIAL ONE (11:39)
[2016-06-06] MEDS ORDERED: ceFAZolin 1,000 MG VIAL ONE (11:45)
--- NOTE | 2016-06-06 13:35 | Electrophysiology Report ---
Date of Procedure:: 06/06/16 Pre-op diagnosis: AF, niecy, asystolic cardiac arrest, sepsis Post-op diagnosis: same Procedure: PROCEDURAL SUMMARY Transesophageal echocardiogram. Externalized VVI pacemaker implant from right axillary vein access. Removal of RFV temporary pacemaker. Successful procedures, no complications. PLAN Bed rest for 4 hours. Wear pacemaker sling all time. CXR, ECG stat. Routine post PM implant nursing care. Keep tegaderm in place over the pacemaker. DIAGNOSES AF Intermittent 3AVB, bradycardic cardiac arrest S/p VF arrest Sedation A timeout was performed. MAC was initiated and maintained by the anesthesia team. The patient was continuously monitored by electrocardiography, pulse oximetry and NIBP. Antibiotic prophylaxis Iv. Vancomycin was used prior to the procedure. PROCEDURE Transesophageal echo A FREEDOM was performed. 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 See full report dictated separately. The FREEDOM had to be discontinue before all valves were visualized, due to apnea. Externialized VVI pacemaker implant The right pectoral area was meticulously prepared with ChloroPrep surgical scrub. Sterile draping was applied. A right subclavian venogram was obtained and showed patent axillary, subclavian veins and SVC. The image intensifier was draped with a sterile bag and positioned over the patient's chest. After infiltration with 1% lidocaine, the left axillary vein was accessed with a micropuncture kit, under fluoroscopic guidance. A peel-away introducer was inserted over the guidewire. The dilator of the introducer was removed. The ventricular lead was positioned in the right ventricular cavity using a curved stiffening stylet. The lead was positioned in the RVA for stability. Despite excellent pacing threshold, the sensed signal was low, at 1 mV. The lead was repositioned, again, excellent pacing threshold was noted with signal at 2.5 mV. The active fixation mechanism was deployed, stable parameters were noted. The slack was checked in COSTELLO and [place] projections. Phrenic nerve stimulation was excluded with pacing at 10 Volts. The introducer sheath was then removed. The RVF temporary PM wire and its sheath was then removed. Hemostasis was achieved with manual compression. Lead position remained stable on fluoroscopy. The pacemaker was connected to the lead. The lead was anchored to the skin with 2-0 Ethibond. A Biopatch was used at the skin entry site. The device and the lead was then sutured onto the skin and a Tegaderm was applied. The device was programmed as detailed below. Implants Device: Medtronic Sensia VVI PM, SN: [id number], location: right infraclavicular Right ventricular lead: Medtronic [id number], SN: [id number], location: RV apex The implanted system is NOT MRI conditional. Measurements RV bipolar: threshold 0.8V @ 0.5 ms, R 2.9 mV, impedance 733 Ohm Settings VVI 70 bpm Anesthesia: MAC Surgeon / Physician: Jason Palacios Tree Warden: other (Jr) Estimated blood loss: minimal Specimens: none sent Condition: critical Disposition: ICU/CCU
--- NOTE | 2016-06-06 13:56 | XRay Report ---
History: Lead placement Date: 06/06/2016 aT 1:35 PM Study: Chest x-ray AP portable Comparison exam: 06/06/2016 at 7:28 AM A right subclavian transvenous pacemaker is in generally satisfactory position. There is no pneumothorax. There is stable cardiomegaly. The mediastinal contours are unchanged in this patient status post prior median sternotomy. There is ectasia and tortuosity of the thoracic aorta as before. The pulmonary vasculature is borderline prominent. The lungs are unchanged. There is some minor strandy scar or subsegmental atelectasis in the left base. There is continued mild left pleural effusion. Osseous structures are generally unremarkable. Impression: No evidence of a pneumothorax following pacemaker placement. Cardiomegaly and borderline CHF appearance. Otherwise unchanged PROCEDURE INTERPRETED AT [facility] DEPARTMENT OF RADIOLOGY Final Report Signed by: Dr. Hiral Kruse
[2016-06-06] MEDS ORDERED: fentaNYL 100 MCG/2 ML VIAL ONE (14:06)
--- NOTE | 2016-06-06 14:22 | EKG Report ---
Stationary ECG Study [facility] Test Date: 06/06/2016 2:22:35 PM Pat Name: ERIC ALLISON Department: Room: 126 Gender: F Floor Steward/Stewardess: : 1925 Requested by: Jason Palacios Order Number: [id number] Reading MD: VIGNESH SALAZAR Intervals [place] Rate: 79 P: 999 TN: 0 QRS: -44 QRSD: 156 T: -9 QT: 455 QTc: 490 Interpretive Statements ATRIAL FIBRILLATION WITH ABERRANT CONDUCTION OR VENTRICULAR PREMATURE COMPLEXES MARKED LEFT AXIS DEVIATION RIGHT BUNDLE BRANCH BLOCK Electronically Signed On 06-06-16 18:52:35 EXTRACTOR AND WRINGER OPERATOR by VIGNESH SALAZAR [email or web address]
[2016-06-06] MEDS: hydrALAZINE 20 MG/1 ML VIAL IV PRN ×2 (14:34→17:33)
--- NOTE | 2016-06-06 18:46 | ECHO Report ---
Gisele Sullivan Exam Date: 06/06/2016 11:58 Referring Physician: Technologist: Keila JOHNSON Age: 89 Ht (in): Wt (lb): Gender: F Exam Location: [facility] Echo Pre-op Dx: VEG. Post-op Dx: BP: / HR: Rhythm: Sinus Technical Quality: Specimens Taken Devices Implanted Medications Complications Estimated Blood Loss Proc. Components IMPRESSIONS Transesophageal echo was performed to eval suspected endocarditis. MAC was provided by the anesthesia team. The study was stopped early due to apnea, before all valves were visualized. Successful respiratory resuscitation was then performed. Normal left ventricular size, with grossly normal systolic function. Biatrial enlargement. The mitral valve is structurally normal, mild concentric regurgitration. The aortic valve is bioprosthetic. The is a 5x2 mm mobile mass on a leaflet, consistent with vegetation. No aortic root abscess or rocking seen. The study had to be stopped before all views were ontained. No significant insufficiency. The pulmonic valve and the tricuspid valve was not visualized. No pericardial effusion. MEASUREMENTS (Male / Female) Normal Values FINDINGS Left Ventricle Right Ventricle Right Atrium Left Atrium LA Appendage IA Septum Mitral Valve Aortic Valve Tricuspid Valve Pulmonic Valve Pericardium Aorta Jason Palacios (Electronically Signed) Final Date: 06 June 2016 18:45
--- NOTE | 2016-06-06 18:49 | Event Note ---
FREEDOM suggests prosthetic aortic valve endocarditis. She likely had a coronary embolic event from this few days ago, which led to the VF arrest, transient elevation in cardiac biomarkers. Risk of recurrent embolization is high. I will obtain CTS consult. HR is now stable with the externalized PM. Poor prognosis was discussed with family.
[2016-06-06] MEDS: ATORVASTATIN 10 MG TABLET PO SCH (21:15)
[2016-06-07] MEDS ORDERED: VANCOMYCIN INJ 1,000 MG in SODIUM CHLORIDE 0.9% 250 ML IV ONE (02:00)
[2016-06-07] MEDS: FLUTICASONE/SALMETEROL 250-50 DISKUS 14 DOSE INH SCH ×3 (02:52→21:22)
[2016-06-07] MEDS: VANCOMYCIN INJ 1,000 MG in SODIUM CHLORIDE 0.9% 250 ML IV ONE ×2 (03:11→07:26)
[2016-06-07] MEDS: AMPICILLIN/SULBACTAM 3,000 MG in SODIUM CHLORIDE 0.9% 100 ML IV SCH ×2 (04:23→08:38)
[2016-06-07 04:34] LABS: Basophils # 0.1 10*3/uL (0.0-0.2); Basophils % 0.3 % (0.0-0.8); Eosinophils % 0.1 % (0.00-10.9); Hemoglobin 10.9 GM/DL (12.0-16.0); Immature Granulocytes % 1.4 %; Immature Granulocytes Absolute 0.37 #; Lymphocytes # 1.6 10*3/uL (1.4-4.0); Lymphocytes % 5.9 % (21.3-54.2); Mean Corpuscular HGB Conc 32.1 GM/DL (32-36); Mean Corpuscular Hemoglobin 28 PG (27-34); Mean Corpuscular Volume 87.2 FL (87-102); Mean Platelet Volume 10.8 FL (9.6-12.0); Monocytes # 1.5 10*3/uL (0.11-0.8); Monocytes % 5.3 % (1.7-12.7); Neutrophils # 23.8 10*3/uL (1.4-7.4); Platelet Count 372 T/CUMM (130-400); Red Cell Distribution Width 15.2 % (9.3-17.3); White Blood Count 27.3 T/CUMM (4-12)
[2016-06-07 04:43] LABS: INR 1.7
[2016-06-07 05:04] LABS: Calcium 9.1 MG/DL (8.5-10.1); Magnesium 1.7 MG/DL (1.8-2.4); Osmolality,Calculated 288.8 MOS/KG (273-304); Phosphorous 1.9 MG/DL (2.5-4.9); Potassium 3.7 MMOL/L (3.5-5.1)
[2016-06-07 05:15] LABS: Elliptocytes Few; Hypochromasia 1+; Platelet Estimate Adequate
--- NOTE | 2016-06-07 06:22 | Cardiology Progress Note ---
Assessment and Plan (1) Acute respiratory distress Status: Acute Current Visit: Yes (2) Cardiac asystole Status: Acute Current Visit: Yes (3) Dyslipidemia Status: Chronic Current Visit: Yes (4) Fever Status: Acute Current Visit: Yes (5) HTN (hypertension) Status: Chronic Current Visit: Yes (6) Syncope, cardiogenic Status: Acute Current Visit: Yes (7) H/O aortic valve replacement Status: Chronic Current Visit: Yes Cardiology - PN: Subj Interval history: Cardiology note 89-year-old woman with enterococcal bacteremia status post bradycardia/asystole. FREEDOM yesterday showed vegetation on the bioprosthetic aortic valve Day 1 status post semipermanent percutaneous VVI pacer Now on 50% Ventimask O2 sat 93 Blood pressure 150/80 Telemetry shows chronic atrial fib with rare paced beat Irregular rhythm with systolic ejection murmur as before I cannot hear any AI Abdomen soft benign Decreased breath sounds with coarse rhonchi Trace leg edema Lab data today White count up to 27.3 Hemoglobin 10.9 hematocrit 34.0 Sodium 144 potassium 3.7 chloride 106 CO2 23 BUN 17 creatinine 0.7 Glucose 121 Impression Status post semipermanent percutaneous VVI pacer Enterococcal SBE bioprosthetic aortic valve Chronic atrial fib Hypertension Advanced age and frailty Plan Patient is a DNR. Continue antibiotics. Prognosis very poor Exam (Progress Note) - Constitutional Vitals: Period Temp Pulse Resp BP Sys/Fitzgerald Pulse Ox Last 24 Hr 97.9 F-98.9 F 71-110 18-40 143-189/66-105 90-100 Result/EKG - Labs CBC & BMP: 06/07/16 03:56 06/07/16 03:56 Labs: Laboratory Results - last 24 hr 06/06/16 06/06/16 06/07/16 06:15 10:36 03:56 WBC 27.3 H RBC 3.90 Hgb 10.9 L Hct 34.0 L MCV 87.2 MCH 28 MCHC 32.1 RDW 15.2 Plt Count 372 MPV 10.8 Neut % (Auto) 87.0 H Lymph % (Auto) 5.9 L [place] % (Auto) 5.3 Eos % (Auto) 0.1 Baso % (Auto) 0.3 Neut # (Auto) 23.8 H Lymph # (Auto) 1.6 [place] # (Auto) 1.5 H Eos # (Auto) 0.0 Baso # (Auto) 0.1 Immature Gran % 1.4 Nucleated RBC % 0.0 Immature Gran # 0.37 Nucleated RBCs # 0.00 Platelet Estimate Adequate Hypochromasia 1+ Elliptocytes Few Morphology Comment INR 4.5 2.2 PT Patient/Control Mix 52.2 D 24.6 D Sodium Potassium Chloride Carbon Dioxide Anion Gap BUN Creatinine GFR Calculation BUN/Creatinine Ratio Glucose Calculated Osmolality Calcium Phosphorus Magnesium Triglycerides 06/07/16 06/07/16 03:56 03:56 WBC RBC Hgb Hct MCV MCH MCHC RDW Plt Count MPV Neut % (Auto) Lymph % (Auto) [place] % (Auto) Eos % (Auto) Baso % (Auto) Neut # (Auto) Lymph # (Auto) [place] # (Auto) Eos # (Auto) Baso # (Auto) Immature Gran % Nucleated RBC % Immature Gran # Nucleated RBCs # Platelet Estimate Hypochromasia Elliptocytes Morphology Comment INR 1.7 PT Patient/Control Mix 19.0 D Sodium 144 Potassium 3.7 Chloride 106 Carbon Dioxide 23 Anion Gap 18.7 H BUN 17 Creatinine 0.70 GFR Calculation 85 BUN/Creatinine Ratio 24.00 H Glucose 121 H Calculated Osmolality 288.8 Calcium 9.1 Phosphorus 1.9 L Magnesium 1.7 L Triglycerides 102 Quality Measures - VTE Contraindication to Pharmacological VTE Prophylaxis: Coagulopathy
--- NOTE | 2016-06-07 07:29 | Pulmonology Progress Note ---
Pulmonary - PN: Subj Interval history: This 89-year-old white female had asystole with syncope. She has a temporary pacemaker. She was ventilated but was able to be extubated yesterday. She has a urinary tract infection with enterococcus with enterococcal sepsis. She had another set of blood cultures drawn yesterday. If they jewel bearing turner to be negative then we could proceed with a permanent pacemaker/AICD. At present she is alert responsive. She is a little bit dysarthric. ABGs look good post extubation. 06/05/2016 patient has done well since extubation. O2 sats in high 90s on nasal oxygen. She is comfortable. Last set of blood cultures are negative thus far. Probably could proceed with permanent pacemaker. 06/06/2016 patient is afebrile and has negative cultures from 3 days back. She is set up for permanent pacemaker today. The mechanism of her cardiac arrest was felt to be cardiac rhythm problems with asystole. Patient is responsive. She continues to be a bit tachypneic probably some congestive heart failure. 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 Pacemaker was changed to a different site but it is still temporary because of the bacteremia. Last cultures were negative. She is breathing 25-35 times a minute. She is requiring 50% Ventimask and oxygen saturation is 94% on that. Yesterday's chest x-ray did not look wet. We will repeat one tomorrow. Her white blood count is up to 27,000. Her INR was also 4.5 yesterday which would preclude permanent pacemaker placement. That will probably be put off until she said adequate antibiotics to clear her endocarditis. Do not know if she will need her aortic valve replaced again. Exam (Progress Note) - Constitutional Vitals: Period Temp Pulse Resp BP Sys/Fitzgerald Pulse Ox Last 24 Hr 97.9 F-98.9 F 71-110 18-40 143-189/66-105 90-100 Exam: Vital signs normal, except respiratory rate in the low to mid 30s. Pupils react to light. She is alert and appears oriented. Her speech is a little dysarthric. Neck is supple no bruits. Chest reveals a few scattered rhonchi. Heart paced rhythm no murmurs. Abdomen soft nontender no masses. Bowel sounds present. Extremities no clubbing cyanosis edema. Calves nontender. Little change from yesterday. Results - Labs CBC & BMP: 06/07/16 03:56 06/07/16 03:56 Lab Results: I have reviewed the past 24 hour labs Assessment and Plan (1) Sepsis Status: Acute Assessment and plan: She has positive blood cultures for enterococcus and is on ampicillin. Will need to have negative blood cultures before consideration of a permanent pacemaker/AICD is done. 06/04/2016 this appears to be controlled with antibiotics. Repeating blood cultures. Once we have negative blood cultures and a permanent pacemaker can be planned. 06/05/2016 continuing with antibiotics. Last set of blood cultures are negative thus far. 06/06/2016 sepsis appears to be controlled. 06/07/2016 blood cultures negative now. Appears to have endocarditis however. Current Visit: Yes (2) Urinary tract infection Status: Acute Assessment and plan: Continuing ampicillin for enterococcal UTI. 06/05/2016 continuing ampicillin for enterococcal UTI and sepsis. Needs a total of about 2 weeks more. 06/06/2016 continuing antibiotics for enterococcal UTI with sepsis. Needs antibiotics through about 17 June. 06/07/2016 on appropriate antibiotics for the enterococcus. Current Visit: Yes Qualifiers: Urinary tract infection type: site unspecified Hematuria presence: without hematuria Qualified Code(s): N39.0 - Urinary tract infection, site not specified (3) H/O aortic valve replacement Status: Chronic Assessment and plan: Chronically on Coumadin for a mechanical aortic valve replacement in the past. Further records indicate that it is bioprosthetic. 06/04/2016 has a bioprosthetic aortic valve. 06/06/2016 this is all the more reason for at least 2 weeks of IV antibiotics for the enterococcal sepsis. 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 Current Visit: Yes (4) Cardiac asystole Status: Acute Assessment and plan: Had long pauses and probably asystole as the mechanism of her syncope and arrest. 06/04/2016 this is the cause of her syncope. Has temporary pacemaker. 06/05/2016 does not appear to have any significant hypoxic brain injury. Temporary pacemaker in place. Plan for permanent pacemaker when sepsis controlled. Again last blood culture negative thus far. 06/06/2016 mental status is good. For permanent pacemaker today. 06/07/2016 she has a pacemaker now for the episode of asystole. Current Visit: Yes (5) Syncope, cardiogenic Status: Acute Assessment and plan: Arrhythmia was felt to be the cause of her syncope. Defer to Dr. Palacios. 06/05/2016 due to asystole. Current Visit: Yes (6) Acute respiratory failure Status: Acute Assessment and plan: This is likely due to the arrhythmia and some congestive heart failure. ABGs look good. Patient is presently sedated. Will hold sedation and start CPAP trials and see when we can get her extubated. 06/04/2016 ABGs look good post extubation. Does not have chronic lung disease. 06/05/2016 this is much improved. 06/06/2016 patient has done well since extubation except for tachypnea. O2 sats look okay. Chest x-ray is pending 06/07/2017 she is off the ventilator. Still requiring a good bit of oxygen. Current Visit: Yes
[2016-06-07] MEDS: ASPIRIN EC 81 MG TABLET PO SCH (08:37)
[2016-06-07] MEDS: ALLOPURINOL 300 MG TABLET PO SCH (08:37)
[2016-06-07] MEDS: MULTIVITAMIN (OCUVITE) TABLET PO SCH ×2 (08:37→21:22)
[2016-06-07] MEDS: CALCIUM (CARBONATE) 500 MG TABLET PO SCH ×2 (08:38→21:22)
[2016-06-07] MEDS: METOPROLOL TARTRATE 25 MG TABLET PO SCH ×2 (08:38→21:22)
[2016-06-07] MEDS: LOSARTAN 50 MG TABLET PO SCH (08:38)
[2016-06-07] MEDS: DILTIAZEM 60 MG TABLET PO SCH ×3 (08:38→21:23)
[2016-06-07] MEDS: PANTOPRAZOLE 40 MG TABLET PO SCH (08:39)
[2016-06-07] MEDS: DESITIN 4OZ/NYSTATIN 15 GRAM MIXTURE PASTE TOP SCH ×2 (08:39→21:23)
[2016-06-07] MEDS: GENTAMICIN INJ 150 MG in SODIUM CHLORIDE 0.9% 100 ML IV SCH (09:19)
--- NOTE | 2016-06-07 10:18 | Electrophysiology Progress Not ---
Assessment and Plan (1) Cardiac asystole Status: Acute Assessment and plan: 89-year-old female, with permanent atrial fibrillation, status post aortic valve replacement, syncope, likely due to bradycardia. E. faecalis UTI, sepsis. 3: RVF temp PM implant, then reposition 06/02: VF arrest 06/06: FREEDOM, externalized VVI PM implant, RFV temp PM explant -Externalized PM. Keep occlusive dressing in place. Recommend dressing and Biopatch change only if sign of infection noted, or 1/week. This has to be done with full sterile technique. Once endocarditis heals, a permanent device may be implanted - at least 6 weeks from now. -Wear the sling all time -PVT/VF. No recurrence. Was likely due to coronary embolization for vegetation , had small IA from this. Cont BB, increase as tolerated by BP -Bioprosthetic AVR. CTS input noted. Very poor prognosis. -Anticoagulation. High embolic risk from AF and endocarditis. Follow INR. Was high yesterday despite holding the coumadin. Improved with FFP and vit K, now subtherapeutic. Recommend LMWH for now, with close monitoring of CBC, INR. -Consider ID consult, still septic despite appropriate abx. Current Visit: Yes (2) Atrial fibrillation Status: Inactive Current Visit: Yes Qualifiers: Atrial fibrillation type: chronic Qualified Code(s): I48.2 - Chronic atrial fibrillation (3) Dyslipidemia Status: Chronic Current Visit: Yes (4) Fever Status: Acute Current Visit: Yes (5) HTN (hypertension) Status: Chronic Current Visit: Yes (6) Syncope, cardiogenic Status: Acute Current Visit: Yes (7) Urinary tract infection Status: Acute Current Visit: Yes Qualifiers: Urinary tract infection type: site unspecified Hematuria presence: without hematuria Qualified Code(s): N39.0 - Urinary tract infection, site not specified (8) Valvular disease Status: Acute Current Visit: Yes (9) Gout Status: Acute Current Visit: No (10) H/O aortic valve replacement Status: Chronic Current Visit: Yes Electrophysiology Subjective Interval history: She is still SOB and a bit somnolent. WBC increasing. No fever. No hematoma or bleeding arouind the externalized PM site. AF, with appropriate VVI pacing on telemetry. Normal PM function on interrogation. Exam - Constitutional Vitals: Period Temp Pulse Resp BP Sys/Fitzgerald Pulse Ox Last 24 Hr 97.9 F-98.6 F 71-110 18-40 118-178/66-100 90-100 General appearance: over weight - Head Head exam: Present: normal inspection - Eye Eye exam: Absent: conjunctival injection Pupils: Absent: dilated - ENT ENT exam: Present: normal external ear exam - Neck Neck exam: Present: normal inspection - Respiratory Respiratory exam: Present: decreased breath sounds - Cardiovascular Cardiovascular exam: Present: irregular rhythm, systolic murmur - GI/Abdominal GI/Abdominal exam: Present: hypoactive bowel sounds - Extremities Exam Extremities exam: Present: normal inspection, normal capillary refill, edema (1+ ) - Neurological Exam Neurological exam: Present: alert - Psychiatric Psychiatric exam: Present: normal affect, normal mood - Skin Skin exam: Present: normal color, warm. Absent: cyanosis Results - Labs CBC & BMP: 06/07/16 03:56 06/07/16 03:56 Lab Results: I have reviewed the past 24 hour labs Quality Measures - VTE Contraindication to Pharmacological VTE Prophylaxis: Coagulopathy
[2016-06-07] MEDS: SODIUM CHLORIDE 0.9% 1,000 ML IV SCH (10:24)
--- NOTE | 2016-06-07 11:14 | Hospitalist Progress Note ---
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 Change to daptomycin, continue to follow temp and WBC. Her prognosis is poor. Dr Palacios and Dr Lambert have talked to her family and explained her condition. Plan to send her to LTAC for the course of IV antibiotics. 2)underlying afib with SSS and asytole then vfib arrest- has asystole when pacer changed yesterday- seh will be pacer dependent. External pacer placed yesterday and when antibiotics course complete, then can have internal pacer. 3)acute resp failure associated with the code- she never wants to be intubated again. will need to discuss code status with her again. Current Visit: Yes (2) Enterococcus UTI Status: Acute Current Visit: Yes (3) HTN (hypertension) Status: Chronic Current Visit: Yes (4) H/O aortic valve replacement Status: Chronic Current Visit: Yes (5) Cardiac asystole Status: Acute Current Visit: Yes (6) Syncope, cardiogenic Status: Acute Current Visit: Yes (7) Sepsis Status: Acute Current Visit: Yes (8) Acute respiratory failure with hypoxia Status: Acute Current Visit: Yes Hospitalist: Subjective Interval history: Mrs Sullivan has endocarditis on her bioprosthetic valve that has likely caused her arrest earlier in her stay and may also have caused her dysarthria. She will need 6 weeks of IV antibiotics and since her temp is still present and her WBC is going up, I am changing her to daptomycin for this. She got her external pacer yesterday. CV surgeon does not feel she could survive valve surgery. We will refer her to LTAC for the IV antibiotics. Exam - Constitutional Vitals: Period Temp Pulse Resp BP Sys/Fitzgerald Pulse Ox Last 24 Hr 97.9 F-98.6 F 71-93 18-40 118-178/66-100 90-100 General appearance: normal weight, no acute distress - Eye Eye exam: Present: EOMI. Absent: scleral icterus - Respiratory Respiratory exam: Present: clear to auscultation bilaterally - Cardiovascular Cardiovascular exam: Present: regular rate and rhythm - GI/Abdominal GI/Abdominal exam: Present: normal bowel sounds, soft. Absent: tenderness - Extremities Exam Extremities exam: Absent: edema - Neurological Exam Neurological exam: Present: alert (answers questions, seems to understand some of what we tell her about her condition), other (speech dysarthric) - Skin Skin exam: Present: warm, dry Results - Labs CBC & BMP: 06/07/16 03:56 06/07/16 03:56 Lab Results: I have reviewed the past 24 hour labs Quality Measures - VTE Contraindication to Pharmacological VTE Prophylaxis: Coagulopathy
[2016-06-07] MEDS: ENOXAPARIN 80 MG/0.8 ML SYRINGE SUBCUT SCH ×2 (11:20→22:50)
--- NOTE | 2016-06-07 11:47 | Cardiothoracic Consult ---
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 The patient currently is doing okay on antibiotics. She is DNR. I had a lengthy discussion with the patient and the family that the patient does present a prohibitive risk for any surgical intervention. I discussed with the family that her best chance of survival is to continuing antibiotics and avoid any surgical intervention at this point. The family understand and willing to proceed with the plan. I will defer further management to the primary team Current Visit: Yes History of Present Illness - Data of Consult Patient: new to practice Consult date: 06/07/16 Requesting Physician: Jason Palacios - Consult Narrative Reason for consult: Prosthetic valve vegetation History of present illness: Ms. Sullivan is a 89 year old female who had a syncopal episode a week ago and she had her head. She was found to be having high temperature and septic. An echo showed a 5 x 2 mm vegetation on the prosthetic aortic valve that was placed in [place] 4 years ago. I was consulted to evaluate for possible need for surgical intervention. The patient currently is in the intensive care unit on antibiotics CC: Ebony Styles MD - Home Medications and Allergies Home Medications: Home Medications Medication Instructions Recorded Confirmed Type Allopurinol 300 mg PO DAILY 05/29/16 05/29/16 History Aspirin [Ecotrin] 81 mg PO DAILY 05/29/16 05/29/16 History Atorvastatin [Lipitor] 5 mg PO QPM 05/29/16 05/29/16 History Calcium (Carbonate) [Oscal 500] 500 mg PO BID 05/29/16 05/29/16 History Fluticasone/Salmeterol 250-50 1 puff INH BID 05/29/16 05/29/16 History [Advair 250-50] Furosemide Tab [Lasix Tab] 20 mg PO BID 05/29/16 05/29/16 History Meloxicam [Mobic] 7.5 mg PO BID PRN 05/29/16 05/29/16 History Metoprolol Tartrate 50 mg PO BID 05/29/16 05/29/16 History Vit C/Selvin AC/Lut/Copper/Znox 1 each PO BID 05/29/16 05/29/16 History [Preservision Lutein Softgel] Warfarin [Coumadin] 3 mg PO QPM 05/29/16 05/29/16 History amLODIPine [Norvasc] 5 mg PO QPM 05/29/16 05/29/16 History diltiaZEM HCl [Diltiazem HCl] 120 mg PO DAILY 05/29/16 05/29/16 History Allergies/Adverse Reactions: Allergies Allergy/AdvReac Type Severity Reaction Status Date / Time sulfamethoxazole Allergy Severe RASH Verified 05/31/16 12:31 [From Bactrim] trimethoprim [From Bactrim] Allergy Severe RASH Verified 05/31/16 12:31 lisinopril Allergy Mild ITCHING Verified 05/31/16 12:31 Medical,Surgical,& Family Hx - Medical History Cardio: History of: Cardiac Dysrhythmia (chronic atrial fib), Hypertension, Valvular Heart Disease (2012- ) No history of: Congenital Heart Disease, CHF Psychological: No history of: Depression Neurology: No history of: Dementia, Seizures, TIA HEENT: History of: Eye Problem Endocrine: History of: Dyslipidemia No history of: Diabetes Mellitus (IDDM), Diabetes Mellitus (NIDDM), Thyroid Disorder Rheumatology: History of;: Gout Respiratory: History of: COPD Genitourinary: History of: Kidney Stones Gastrointestinal: No history of: Esophageal Varices, Hepatitis Musculoskeletal: History of: Degenerative Disk Disease Hematology: No history of: Anemia - Surgical History Cardiac Surgeries: Sugical HX of: Cardiac Surgery Patient Denies: Cardiac Catheterization, Carotid Endarterectomy HEENT Surgeries: Patient denies: Carotid Endarterectomy Orthopedic Surgeries: Patient denies;: Spinal Surgery - Family History Family History: Reports;: Family Stroke (MOTHER) Denies;: Additional Family History - Social History Smoking Status: Never smoker Frequency of Alcohol Use: None Type of Drug Use: None Physical Examination Vital Signs Temp Pulse Resp BP Pulse Ox 98.2 F 99 H 20 122/71 95 05/29/16 11:03 05/29/16 11:03 05/29/16 11:03 05/29/16 11:03 05/29/16 11:03 General: Present: Cachectic HEENT: Present: Pallor Neck: Present: Supple Neck, Midline Trachea Cardiac: Present: Other (Paced) Lungs: Present: Rales - Left, Rales - Right, Bibasilar Rales, Wheezes Neuro: Present: Cranial Nerve 2-12 Intact, Other (Confused) Abdomen: Present: Soft, Active Bowel Sounds Result/EKG - Labs CBC & BMP: 06/07/16 03:56 06/07/16 03:56 Labs: Laboratory Results - last 24 hr 06/07/16 06/07/16 06/07/16 03:56 03:56 03:56 WBC 27.3 H RBC 3.90 Hgb 10.9 L Hct 34.0 L MCV 87.2 MCH 28 MCHC 32.1 RDW 15.2 Plt Count 372 MPV 10.8 Neut % (Auto) 87.0 H Lymph % (Auto) 5.9 L [place] % (Auto) 5.3 Eos % (Auto) 0.1 Baso % (Auto) 0.3 Neut # (Auto) 23.8 H Lymph # (Auto) 1.6 [place] # (Auto) 1.5 H Eos # (Auto) 0.0 Baso # (Auto) 0.1 Immature Gran % 1.4 Nucleated RBC % 0.0 Immature Gran # 0.37 Nucleated RBCs # 0.00 Platelet Estimate Adequate Hypochromasia 1+ Elliptocytes Few Morphology Comment INR 1.7 PT Patient/Control Mix 19.0 D Sodium 144 Potassium 3.7 Chloride 106 Carbon Dioxide 23 Anion Gap 18.7 H BUN 17 Creatinine 0.70 GFR Calculation 85 BUN/Creatinine Ratio 24.00 H Glucose 121 H Calculated Osmolality 288.8 Calcium 9.1 Phosphorus 1.9 L Magnesium 1.7 L Triglycerides 102 Quality Measures - VTE Contraindication to Pharmacological VTE Prophylaxis: Coagulopathy
[2016-06-07] MEDS: ATORVASTATIN 10 MG TABLET PO SCH (21:22)
[2016-06-08 04:55] LABS: Basophils # 0.1 10*3/uL (0.0-0.2); Basophils % 0.2 % (0.0-0.8); Eosinophils # 0.1 10*3/uL (0.0-0.87); Eosinophils % 0.3 % (0.00-10.9); Hematocrit 32.3 VOL% (35.7-47.0); Hemoglobin 10.3 GM/DL (12.0-16.0); Lymphocytes # 1.3 10*3/uL (1.4-4.0); Lymphocytes % 6.6 % (21.3-54.2); Mean Corpuscular HGB Conc 31.9 GM/DL (32-36); Mean Corpuscular Hemoglobin 28 PG (27-34); Mean Corpuscular Volume 87.3 FL (87-102); Monocytes # 1.3 10*3/uL (0.11-0.8); Monocytes % 6.3 % (1.7-12.7); Neutrophils # 17.2 10*3/uL (1.4-7.4); Neutrophils % 85.6 % (38.7-73.9); Platelet Count 296 T/CUMM (130-400); Red Cell Distribution Width 15.3 % (9.3-17.3); White Blood Count 20.1 T/CUMM (4-12)
[2016-06-08 05:02] LABS: INR 1.3; PT Patient Result 13.5 SECS
[2016-06-08 05:15] LABS: Hypochromasia 1+; Ovalocytes Slight; Platelet Estimate Adequate
--- NOTE | 2016-06-08 06:11 | XRay Report ---
XR chest 1V portable Indication: Congestive heart failure Comparison: Chest x-ray 06/06/2016 Technique: Portable AP chest was performed. Findings: Cardiomediastinal silhouette demonstrates little change from comparison. Cardiac pacemaker is stable. Coarsened linear interstitial markings in the mid to lower left chest and scattered airspace opacities within the left lung base remain present. Blunting of each costophrenic angle is present. Perihilar vasculature is prominent bilaterally. Bones and soft tissues appear stable. Impression: 1. Pulmonary venous congestive changes are suggested have minimally increased in prominence since comparison study. 2. Stable cardiomegaly. 3. Infectious process is not excluded within the lower left lung. Other considerations for the appearance of the left lung could include atypical edema and atelectasis. 4. Bilateral small pleural effusions are suggested. 06/08/2016 6:07 AM PROCEDURE INTERPRETED AT [facility] DEPARTMENT OF RADIOLOGY Final Report Signed by: Dr. Robb Clark
--- NOTE | 2016-06-08 06:36 | Pulmonology Progress Note ---
Pulmonary - PN: Subj Interval history: This 89-year-old white female had asystole with syncope. She has a temporary pacemaker. She was ventilated but was able to be extubated yesterday. She has a urinary tract infection with enterococcus with enterococcal sepsis. She had another set of blood cultures drawn yesterday. If they die turner to be negative then we could proceed with a permanent pacemaker/AICD. At present she is alert responsive. She is a little bit dysarthric. ABGs look good post extubation. 06/05/2016 patient has done well since extubation. O2 sats in high 90s on nasal oxygen. She is comfortable. Last set of blood cultures are negative thus far. Probably could proceed with permanent pacemaker. 06/06/2016 patient is afebrile and has negative cultures from 3 days back. She is set up for permanent pacemaker today. The mechanism of her cardiac arrest was felt to be cardiac rhythm problems with asystole. Patient is responsive. She continues to be a bit tachypneic probably some congestive heart failure. 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 Pacemaker was changed to a different site but it is still temporary because of the bacteremia. Last cultures were negative. She is breathing 25-35 times a minute. She is requiring 50% Ventimask and oxygen saturation is 94% on that. Yesterday's chest x-ray did not look wet. We will repeat one tomorrow. Her white blood count is up to 27,000. Her INR was also 4.5 yesterday which would preclude permanent pacemaker placement. That will probably be put off until she said adequate antibiotics to clear her endocarditis. Do not know if she will need her aortic valve replaced again. 06/08/2016 patient's respiratory rate has slowed down to the upper teens or 20s. Oxygen saturation a little better. Chest x-ray still shows small pleural effusions and mild congestive heart failure. 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 She is afebrile. White blood count is come down from 27,000-20, 000. Stable from pulmonary standpoint. Exam (Progress Note) - Constitutional Vitals: Period Temp Pulse Resp BP Sys/Fitzgerald Pulse Ox Last 24 Hr 97.8 F-98.9 F 75-93 18-37 118-160/66-99 92-100 Exam: Vital signs normal, except respiratory rate in the low to mid 30s. Pupils react to light. She is alert and appears oriented. Her speech is a little dysarthric. Neck is supple no bruits. Chest reveals a few scattered rhonchi. Heart paced rhythm no murmurs. Abdomen soft nontender no masses. Bowel sounds present. Extremities no clubbing cyanosis edema. Calves nontender. Little change from yesterday. Results - Labs CBC & BMP: 06/08/16 04:33 06/07/16 03:56 Lab Results: I have reviewed the past 24 hour labs - Diagnostic Findings Procedure: Chest x-ray: image reviewed by me (Cardiomegaly. Small pleural effusions. Slight left basilar infiltrate. Little change from before.) Assessment and Plan (1) Sepsis Status: Acute Assessment and plan: She has positive blood cultures for enterococcus and is on ampicillin. Will need to have negative blood cultures before consideration of a permanent pacemaker/AICD is done. 06/04/2016 this appears to be controlled with antibiotics. Repeating blood cultures. Once we have negative blood cultures and a permanent pacemaker can be planned. 06/05/2016 continuing with antibiotics. Last set of blood cultures are negative thus far. 06/06/2016 sepsis appears to be controlled. 06/07/2016 blood cultures negative now. Appears to have endocarditis however. 06/08/2016 negative blood cultures, no fever, white blood count coming down. Known endocarditis. Current Visit: Yes (2) Urinary tract infection Status: Acute Assessment and plan: Continuing ampicillin for enterococcal UTI. 06/05/2016 continuing ampicillin for enterococcal UTI and sepsis. Needs a total of about 2 weeks more. 06/06/2016 continuing antibiotics for enterococcal UTI with sepsis. Needs antibiotics through about 17 June. 06/07/2016 on appropriate antibiotics for the enterococcus. 06/08/2016 again on appropriate antibiotics Current Visit: Yes Qualifiers: Urinary tract infection type: site unspecified Hematuria presence: without hematuria Qualified Code(s): N39.0 - Urinary tract infection, site not specified (3) H/O aortic valve replacement Status: Chronic Assessment and plan: Chronically on Coumadin for a mechanical aortic valve replacement in the past. Further records indicate that it is bioprosthetic. 06/04/2016 has a bioprosthetic aortic valve. 06/06/2016 this is all the more reason for at least 2 weeks of IV antibiotics for the enterococcal sepsis. 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 Cardiac surgery has recommended against surgery. She is high risk either way. Current Visit: Yes (4) Cardiac asystole Status: Acute Assessment and plan: Had long pauses and probably asystole as the mechanism of her syncope and arrest. 06/04/2016 this is the cause of her syncope. Has temporary pacemaker. 06/05/2016 does not appear to have any significant hypoxic brain injury. Temporary pacemaker in place. Plan for permanent pacemaker when sepsis controlled. Again last blood culture negative thus far. 06/06/2016 mental status is good. For permanent pacemaker today. 06/07/2016 she has a pacemaker now for the episode of asystole. 06/08/2016 has an external pacemaker. Still concerned about placing a permanent pacemaker due to her sepsis. Current Visit: Yes (5) Syncope, cardiogenic Status: Acute Assessment and plan: Arrhythmia was felt to be the cause of her syncope. Defer to Dr. Palacios. 06/05/2016 due to asystole. Current Visit: Yes (6) Acute respiratory failure Status: Acute Assessment and plan: This is likely due to the arrhythmia and some congestive heart failure. ABGs look good. Patient is presently sedated. Will hold sedation and start CPAP trials and see when we can get her extubated. 06/04/2016 ABGs look good post extubation. Does not have chronic lung disease. 06/05/2016 this is much improved. 06/06/2016 patient has done well since extubation except for tachypnea. O2 sats look okay. Chest x-ray is pending 06/07/2016 she is off the ventilator. Still requiring a good bit of oxygen. 06/08/16 on nasal oxygen. Respiratory rate is slowed down. Respiratory failure is controlled Current Visit: Yes
--- NOTE | 2016-06-08 08:08 | Electrophysiology Progress Not ---
Assessment and Plan (1) Cardiac asystole Status: Acute Assessment and plan: 89-year-old female, with permanent atrial fibrillation, status post aortic valve replacement, syncope, likely due to bradycardia. E. faecalis UTI, sepsis. 3: RVF temp PM implant, then reposition 06/02: VF arrest 06/06: FREEDOM, externalized VVI PM implant, RFV temp PM explant -Externalized PM. Keep occlusive dressing in place. Recommend dressing and Biopatch change only if sign of infection noted, or 1/week. This has to be done with full sterile technique. Once endocarditis heals, a permanent device may be implanted - at least 6 weeks from now. If she is moved to a different facility , make sure she gets these instructions. With any questions, call me or my office. -Wear the sling all time -PVT/VF. No recurrence. Was likely due to coronary embolization for vegetation , had small AZ from this. Increase metoprolol to 50 mg bid -Bioprosthetic AVR endocarditis. CTS input noted. Poor prognosis. -Anticoagulation. High embolic risk from AF and endocarditis. Follow INR. Was high yesterday despite holding the coumadin. Improved with FFP and vit K, now subtherapeutic. Recommend LMWH for now, with close monitoring of CBC, INR. Current Visit: Yes (2) Atrial fibrillation Status: Inactive Current Visit: Yes Qualifiers: Atrial fibrillation type: chronic Qualified Code(s): I48.2 - Chronic atrial fibrillation (3) Dyslipidemia Status: Chronic Current Visit: Yes (4) Fever Status: Acute Current Visit: Yes (5) HTN (hypertension) Status: Chronic Current Visit: Yes (6) Syncope, cardiogenic Status: Acute Current Visit: Yes (7) Urinary tract infection Status: Acute Current Visit: Yes Qualifiers: Urinary tract infection type: site unspecified Hematuria presence: without hematuria Qualified Code(s): N39.0 - Urinary tract infection, site not specified (8) Valvular disease Status: Acute Current Visit: Yes (9) Gout Status: Acute Current Visit: No (10) H/O aortic valve replacement Status: Chronic Current Visit: Yes Electrophysiology Subjective Interval history: She looks a bit stronger today. Atrial fibrillation, with controlled ventricular rate. The blood pressure now in the 150s. The externalized PM site has no bleeding or erythema. Exam - Constitutional Vitals: Period Temp Pulse Resp BP Sys/Fitzgerald Pulse Ox Last 24 Hr 97.8 F-98.9 F 75-91 18-37 118-160/66-99 92-100 General appearance: over weight - Head Head exam: Present: normal inspection - Eye Eye exam: Absent: conjunctival injection Pupils: Absent: dilated - ENT ENT exam: Present: normal external ear exam - Neck Neck exam: Present: normal inspection - Respiratory Respiratory exam: Present: decreased breath sounds - Cardiovascular Cardiovascular exam: Present: irregular rhythm, systolic murmur - GI/Abdominal GI/Abdominal exam: Present: normal bowel sounds - Extremities Exam Extremities exam: Present: normal inspection, normal capillary refill, edema (1+ ) - Back Exam Back exam: Present: normal inspection - Neurological Exam Neurological exam: Present: alert, oriented X3 - Psychiatric Psychiatric exam: Present: normal affect, normal mood - Skin Skin exam: Present: normal color, warm. Absent: cyanosis Results - Labs CBC & BMP: 06/08/16 04:33 06/07/16 03:56 Lab Results: I have reviewed the past 24 hour labs Quality Measures - VTE Contraindication to Pharmacological VTE Prophylaxis: Coagulopathy Specialty Discharge - Follow Up or Referrals - Speciality Discharge Instructions Cardiology Instructions: Follow up with electrophysiology, dr. Palacios in 6 weeks. If she is moved to a different facility, let them call me with any questions.
--- NOTE | 2016-06-08 08:10 | Cardiology Progress Note ---
Assessment and Plan (1) Acute respiratory distress Status: Acute Current Visit: Yes (2) Cardiac asystole Status: Acute Current Visit: Yes (3) Dyslipidemia Status: Chronic Current Visit: Yes (4) Fever Status: Acute Current Visit: Yes (5) HTN (hypertension) Status: Chronic Current Visit: Yes (6) Syncope, cardiogenic Status: Acute Current Visit: Yes (7) H/O aortic valve replacement Status: Chronic Current Visit: Yes Cardiology - PN: Subj Interval history: Cardiology note 89-year-old woman status post asystole/severe bradycardia requiring temporary pacemaker. Day 2 status post semipermanent percutaneous VVI pacemaker by Dr. Palacios. Lethargic but responsive Telemetry shows atrial fib rare paced beat O2 sat 94 on 4 L cannula Blood pressure 156/90 Decreased breath sounds bibasilar rhonchi Irregular rhythm soft systolic ejection murmur as before Abdomen soft benign Lab data today White count 20.1 hemoglobin 10.3 hematocrit 32.3 Impression Status post semipermanent percutaneous VVI pacemaker Enterococcus SBE bioprosthetic aVR Chronic atrial fibrillation Hypertension Frailty Plan Continue IV antibiotics Encourage nutrition Working on placement Exam (Progress Note) - Constitutional Vitals: Period Temp Pulse Resp BP Sys/Fitzgerald Pulse Ox Last 24 Hr 97.8 F-98.9 F 75-91 18-37 118-160/66-99 92-100 Result/EKG - Labs CBC & BMP: 06/08/16 04:33 06/07/16 03:56 Labs: Laboratory Results - last 24 hr 06/08/16 06/08/16 04:33 04:33 WBC 20.1 H RBC 3.70 L Hgb 10.3 L Hct 32.3 L MCV 87.3 MCH 28 MCHC 31.9 L RDW 15.3 Plt Count 296 D MPV 11.0 Neut % (Auto) 85.6 H Lymph % (Auto) 6.6 L [place] % (Auto) 6.3 Eos % (Auto) 0.3 Baso % (Auto) 0.2 Neut # (Auto) 17.2 H Lymph # (Auto) 1.3 L [place] # (Auto) 1.3 H Eos # (Auto) 0.1 Baso # (Auto) 0.1 Immature Gran % 1.0 Nucleated RBC % 0.0 Immature Gran # 0.20 Nucleated RBCs # 0.00 Platelet Estimate Adequate Hypochromasia 1+ Ovalocytes Slight Morphology Comment INR 1.3 PT Patient/Control Mix 13.5 D Quality Measures - VTE Contraindication to Pharmacological VTE Prophylaxis: Coagulopathy
[2016-06-08] MEDS: ALLOPURINOL 300 MG TABLET PO SCH (09:14)
[2016-06-08] MEDS: ASPIRIN EC 81 MG TABLET PO SCH (09:14)
[2016-06-08] MEDS: CALCIUM (CARBONATE) 500 MG TABLET PO SCH ×2 (09:14→20:35)
[2016-06-08] MEDS: METOPROLOL TARTRATE 50 MG TABLET PO SCH ×2 (09:14→20:35)
[2016-06-08] MEDS: LOSARTAN 50 MG TABLET PO SCH (09:14)
[2016-06-08] MEDS: DILTIAZEM 60 MG TABLET PO SCH ×3 (09:14→20:35)
[2016-06-08] MEDS: MULTIVITAMIN (OCUVITE) TABLET PO SCH ×2 (09:14→20:35)
[2016-06-08] MEDS: DESITIN 4OZ/NYSTATIN 15 GRAM MIXTURE PASTE TOP SCH ×2 (09:15→20:35)
[2016-06-08] MEDS: FLUTICASONE/SALMETEROL 250-50 DISKUS 14 DOSE INH SCH ×2 (09:15→20:36)
[2016-06-08] MEDS: PANTOPRAZOLE 40 MG TABLET PO SCH (09:15)
[2016-06-08] MEDS: ENOXAPARIN 80 MG/0.8 ML SYRINGE SUBCUT SCH (11:32)
--- NOTE | 2016-06-08 14:12 | Hospitalist Progress Note ---
Assessment and Plan (1) Enterococcal bacteremia Status: Acute Assessment and plan: 1)Enterococcal endocarditis, UTI, bacteremia- on daptomycin day 2 after a week of unasyn with improved WBC and afebrile. Prognosis poor. Will need [address] Palacios has placed an external pacer because she has had 2 arrhythmia events including vfib arrest- this can be changed to internal pacer after endocarditis cured. Dr Lambert and Dr Palacios have been very helpful. Dr Chapa reviewed her case and does not recommend valve surgery. DNI bioprosthetic AV with endocarditis acute resp failure- resolved, never wants to be intubated again. dispo- CM working on plan for LTAC. Current Visit: Yes (2) Enterococcus UTI Status: Acute Current Visit: Yes (3) HTN (hypertension) Status: Chronic Current Visit: Yes (4) H/O aortic valve replacement Status: Chronic Current Visit: Yes (5) Cardiac asystole Status: Acute Current Visit: Yes (6) Syncope, cardiogenic Status: Acute Current Visit: Yes (7) Sepsis Status: Acute Current Visit: Yes (8) Acute respiratory failure with hypoxia Status: Acute Current Visit: Yes Hospitalist: Subjective Interval history: Mrs Sullivan is doing ok this morning. I have talked to her daughter and niece also regarding placement issues and prognosis. We discussed that she is DNI, and they decided they would talk to her about her feelings about CPR/ACLS. They wanted to take her to [place], but are now hoping that insurance will pay to move her to LTAC in [place] closer to her daughter. Mrs Sullivan says she is breathing ok and her appetite has improved. Exam - Constitutional Vitals: Period Temp Pulse Resp BP Sys/Fitzgerald Pulse Ox Last 24 Hr 97.9 F-98.9 F 75-93 18-38 129-167/67-100 91-100 General appearance: normal weight, no acute distress - Eye Eye exam: Present: EOMI. Absent: scleral icterus - Respiratory Respiratory exam: Present: clear to auscultation bilaterally - Cardiovascular Cardiovascular exam: Present: regular rate and rhythm, systolic murmur - GI/Abdominal GI/Abdominal exam: Present: normal bowel sounds, soft. Absent: tenderness - Extremities Exam Extremities exam: Absent: edema Results - Labs CBC & BMP: 06/08/16 04:33 06/07/16 03:56 Lab Results: I have reviewed the past 24 hour labs Quality Measures - VTE Contraindication to Pharmacological VTE Prophylaxis: Coagulopathy
[2016-06-08] MEDS: ATORVASTATIN 10 MG TABLET PO SCH (20:35)
[2016-06-09] MEDS: ENOXAPARIN 80 MG/0.8 ML SYRINGE SUBCUT SCH ×3 (04:46→18:21)
[2016-06-09 05:25] LABS: Basophils # 0.1 10*3/uL (0.0-0.2); Basophils % 0.3 % (0.0-0.8); Eosinophils # 0.1 10*3/uL (0.0-0.87); Eosinophils % 0.2 % (0.00-10.9); Hematocrit 33.5 VOL% (35.7-47.0); Hemoglobin 10.5 GM/DL (12.0-16.0); Immature Granulocytes % 1.1 %; Immature Granulocytes Absolute 0.24 #; Lymphocytes # 1.4 10*3/uL (1.4-4.0); Lymphocytes % 6.4 % (21.3-54.2); Mean Corpuscular HGB Conc 31.3 GM/DL (32-36); Mean Corpuscular Hemoglobin 28 PG (27-34); Mean Corpuscular Volume 88.2 FL (87-102); Mean Platelet Volume 11.2 FL (9.6-12.0); Monocytes # 1.5 10*3/uL (0.11-0.8); NRBC # 0.02 10*3/uL; Neutrophils # 18.5 10*3/uL (1.4-7.4); Platelet Count 290 T/CUMM (130-400); Red Cell Distribution Width 15.3 % (9.3-17.3); White Blood Count 21.8 T/CUMM (4-12)
[2016-06-09 05:43] LABS: INR 1.2; PT Patient Result 12.9 SECS
[2016-06-09 05:56] LABS: Calcium 9.3 MG/DL (8.5-10.1); Osmolality,Calculated 290.7 MOS/KG (273-304); Potassium 3.5 MMOL/L (3.5-5.1)
[2016-06-09 06:09] LABS: Anisocytosis 2+; Elliptocytes Few; Hypochromasia Slight; Lymphocytes 5 % (20-55); Macrocytosis 2+; Metamyelocytes 1 %; Platelet Estimate Normal; Segmented Neutrophils 87 % (50-85); Total Cells Counted 100
--- NOTE | 2016-06-09 07:51 | Hospitalist Progress Note ---
Assessment and Plan (1) Acute respiratory failure with hypoxia Status: Acute Assessment and plan: Patient on facemask oxygen seems cough weaning followed by pulmonary Current Visit: Yes (2) Enterococcal bacteremia Status: Acute Assessment and plan: Currently on antibiotics seems to be improving has gotten up and moved around was found have some arrhythmias is being externally paced. Dr. Moreno and Dr. meyer are following Current Visit: Yes (3) HTN (hypertension) Status: Chronic Current Visit: Yes Hospitalist: Subjective Interval history: Patient awake alert without complaints Exam - Constitutional Vitals: Period Temp Pulse Resp BP Sys/Fitzgerald Pulse Ox Last 24 Hr 98.2 F-98.9 F 70-93 12-38 113-158/67-96 91-100 Exam: Constitutional: General appearance is normal Eyes: Pupils equal round react to light and accommodation conjunctiva and lids are normal Neck: supple without masses Respiratory: Respiratory effort is normal. Lungs are clear to auscultation. Resonant to percussion. Cardiac: Regular rate and rhythm without murmur rub or gallop. PMI at the midclavicular line by palpation. Carotid arteries 2+ palpation no bruits GI: Bowel sounds normoactive, no tenderness or rebound tenderness, no organomegaly Extremities: no clubbing cyanosis or edema Results - Labs CBC & BMP: 06/09/16 05:09 06/09/16 05:09 Quality Measures - VTE Contraindication to Pharmacological VTE Prophylaxis: Coagulopathy
--- NOTE | 2016-06-09 08:30 | Cardiology Progress Note ---
Assessment and Plan (1) Acute respiratory distress Status: Acute Current Visit: Yes (2) Cardiac asystole Status: Acute Current Visit: Yes (3) Dyslipidemia Status: Chronic Current Visit: Yes (4) Fever Status: Acute Current Visit: Yes (5) HTN (hypertension) Status: Chronic Current Visit: Yes (6) Syncope, cardiogenic Status: Acute Current Visit: Yes (7) H/O aortic valve replacement Status: Chronic Current Visit: Yes Cardiology - PN: Subj Interval history: Cardiology note 89-year-old woman with enterococcus SBE bioprosthetic aortic valve appetite fair. No temperature. Telemetry shows atrial fib with ventricular pacing Blood pressure 160/90 O2 sat 96% on 3 L Decreased breath sounds few basilar rhonchi Irregular rhythm systolic ejection murmur as before Abdomen soft No leg edema Lab data today White count 21.8 Hemoglobin 10.5 hematocrit 33.5 Sodium 145 potassium 3.5 chloride 105 CO2 29 BUN 19 creatinine 0.70 Glucose 85 Impression Status post semipermanent VVI pacemaker Chronic atrial fibrillation Enterococcus SBE bioprosthetic aortic valve Hypertension Advanced age and frailty Plan IV antibiotics BP meds Exam (Progress Note) - Constitutional Vitals: Period Temp Pulse Resp BP Sys/Fitzgerald Pulse Ox Last 24 Hr 98.2 F-98.9 F 70-88 12-38 113-158/67-96 92-100 Result/EKG - Labs CBC & BMP: 06/09/16 05:09 06/09/16 05:09 Labs: Laboratory Results - last 24 hr 06/09/16 06/09/16 06/09/16 05:09 05:09 05:09 WBC 21.8 H RBC 3.80 Hgb 10.5 L Hct 33.5 L MCV 88.2 MCH 28 MCHC 31.3 L RDW 15.3 Plt Count 290 MPV 11.2 Neut % (Auto) 85.0 H Lymph % (Auto) 6.4 L [place] % (Auto) 7.0 Eos % (Auto) 0.2 Baso % (Auto) 0.3 Neut # (Auto) 18.5 H Lymph # (Auto) 1.4 [place] # (Auto) 1.5 H Eos # (Auto) 0.1 Baso # (Auto) 0.1 Total Counted 100 Immature Gran % 1.1 Nucleated RBC % 0.1 Immature Gran # 0.24 Segmented Neutrophils 87 H Lymphocytes 5 L Monocytes 7 Metamyelocytes 1 Nucleated RBCs # 0.02 Platelet Estimate Normal Hypochromasia Slight Anisocytosis 2+ Macrocytosis 2+ Elliptocytes Few INR 1.2 PT Patient/Control Mix 12.9 Sodium 145 Potassium 3.5 Chloride 105 Carbon Dioxide 29 Anion Gap 14.5 BUN 19 H Creatinine 0.70 GFR Calculation 85 BUN/Creatinine Ratio 27.00 H Glucose 114 H Calculated Osmolality 290.7 Calcium 9.3 Quality Measures - VTE Contraindication to Pharmacological VTE Prophylaxis: Coagulopathy
[2016-06-09] MEDS: FLUTICASONE/SALMETEROL 250-50 DISKUS 14 DOSE INH SCH ×2 (09:24→21:55)
[2016-06-09] MEDS: ALLOPURINOL 300 MG TABLET PO SCH (09:25)
[2016-06-09] MEDS: DESITIN 4OZ/NYSTATIN 15 GRAM MIXTURE PASTE TOP SCH ×2 (09:25→21:56)
[2016-06-09] MEDS: PANTOPRAZOLE 40 MG TABLET PO SCH (09:26)
[2016-06-09] MEDS: CALCIUM (CARBONATE) 500 MG TABLET PO SCH ×2 (09:27→21:57)
[2016-06-09] MEDS: METOPROLOL TARTRATE 50 MG TABLET PO SCH ×2 (09:27→21:56)
[2016-06-09] MEDS: MULTIVITAMIN (OCUVITE) TABLET PO SCH ×2 (09:27→21:57)
[2016-06-09] MEDS: ASPIRIN EC 81 MG TABLET PO SCH (09:28)
[2016-06-09] MEDS: DILTIAZEM 60 MG TABLET PO SCH ×2 (09:28→21:57)
[2016-06-09] MEDS: LOSARTAN 50 MG TABLET PO SCH (09:28)
--- NOTE | 2016-06-09 12:37 | Pulmonology Progress Note ---
Pulmonary - PN: Subj Interval history: This is an 89-year-old white female from [place]. She was visiting her family. She had sepsis and this was followed by cardiac arrest. She appeared to have asystole. She now has a cardiac pacemaker. She has endocarditis of the prosthetic aortic valve. She is on antibiotics. She was on mechanical ventilation and is now off. She appears to be breathing well. Does not plan to put a permanent pacemaker and while she is having endocarditis. This morning the patient's alert oriented eating breakfast. She has no new requests. There have been no complaints. Chest x-ray from 3 11/08/2016 shows massive cardiomegaly there may be very mild pulmonary edema. Lab. White blood cell count is 21,800 with 85 segs. H&H is 10.5/33.5. Platelets 290,000. Electrolytes are normal. Creatinine 0.7 with a BUN of 19. Microbiology. A number of blood cultures have grown Enterococcus faecalis Physical exam. Vital signs. See below Psychiatric. Oriented 3 Neurologic. Cranial nerves are intact with decreased hearing acuity bilaterally. Long track motor functions intact. Neck is symmetrical slightly kyphotic with no meningismus. Lymphatics no submandibular cervical supraclavicular adenopathy. No epitrochlear adenopathy. Chest. Clear Heart. Far lateral PMI. Abdomen. Nondistended. Positive bowel sounds. Extremities. No obvious deep venous thrombophlebitis The remainder the physical exam is negative. Plan. 1. Continue present regimen. 2. Follow-up labs and x-rays as already ordered. Exam (Progress Note) - Constitutional Vitals: Period Temp Pulse Resp BP Sys/Fitzgerald Pulse Ox Last 24 Hr 97.7 F-98.9 F 70-84 12-37 113-160/67-96 92-100 Results - Labs CBC & BMP: 06/09/16 05:09 06/09/16 05:09
[2016-06-09] MEDS: ATORVASTATIN 10 MG TABLET PO SCH (21:57)
[2016-06-10] MEDS: ENOXAPARIN 80 MG/0.8 ML SYRINGE SUBCUT SCH ×2 (05:49→18:30)
--- NOTE | 2016-06-10 08:05 | Cardiology Progress Note ---
Assessment and Plan (1) Acute respiratory distress Status: Acute Current Visit: Yes (2) Cardiac asystole Status: Acute Current Visit: Yes (3) Dyslipidemia Status: Chronic Current Visit: Yes (4) Fever Status: Acute Current Visit: Yes (5) HTN (hypertension) Status: Chronic Current Visit: Yes (6) Syncope, cardiogenic Status: Acute Current Visit: Yes (7) H/O aortic valve replacement Status: Chronic Current Visit: Yes Cardiology - PN: Subj Interval history: Cardiology note 89-year-old status post asystole and temporary pacemaker. Has enterococcal bacteremia and UTI with subsequent SBE She required a semipermanent VVI external pacemaker by Dr. Palacios Telemetry shows atrial fib with ventricular pacing Blood pressure 140/86 O2 sat 94 on 4 L nasal cannula Appetite fair Decreased breath sounds with basilar rhonchi Irregular rhythm with systolic ejection murmur upper right sternal border. I cannot hear any AI. Abdomen soft No leg edema. Lab data today White count 21.8 hemoglobin 10.5 hematocrit 33.5 Sodium 145 potassium 3.5 chloride 105 CO2 29 BUN 19 creatinine 0.70 Glucose 114 Impression Enterococcus SBE bioprosthetic aortic valve Status post semipermanent VVI external pacemaker for severe bradycardia/asystole Chronic atrial fibrillation Hypertension advanced age and frailty Plan IV antibiotics Encourage nutrition Awaiting placement Exam (Progress Note) - Constitutional Vitals: Period Temp Pulse Resp BP Sys/Fitzgerald Pulse Ox Last 24 Hr 97.6 F-99.5 F 70-70 15-35 116-166/68-99 90-95 Result/EKG - Labs CBC & BMP: 06/09/16 05:09 06/09/16 05:09 Quality Measures - VTE Contraindication to Pharmacological VTE Prophylaxis: Coagulopathy
--- NOTE | 2016-06-10 08:47 | Hospitalist Progress Note ---
Assessment and Plan (1) Acute respiratory failure with hypoxia Status: Acute Assessment and plan: Patient on facemask oxygen seems cough weaning followed by pulmonary 06/10 patient seems to be improving continue facemask oxygen Current Visit: Yes (2) Enterococcal bacteremia Status: Acute Assessment and plan: Currently on antibiotics seems to be improving has gotten up and moved around was found have some arrhythmias is being externally paced. Dr. Moreno and Dr. meyer are following 3/12 o'clock bacteremia probably can go to the floor cardiology in pulmonary sign off Current Visit: Yes (3) HTN (hypertension) Status: Chronic Current Visit: Yes Hospitalist: Subjective Interval history: Patient without complaints this morning she denies any shortness of breath or chest pain Exam - Constitutional Vitals: Period Temp Pulse Resp BP Sys/Fitzgerald Pulse Ox Last 24 Hr 97.6 F-100.1 F 70-70 15-35 116-166/68-99 90-95 Exam: Constitutional: General appearance is normal Eyes: Pupils equal round react to light and accommodation conjunctiva and lids are normal Neck: supple without masses Respiratory: Respiratory effort is normal. Lungs are clear to auscultation. Resonant to percussion. Cardiac: Regular rate and rhythm without murmur rub or gallop. PMI at the midclavicular line by palpation. Carotid arteries 2+ palpation no bruits GI: Bowel sounds normoactive, no tenderness or rebound tenderness, no organomegaly Extremities: no clubbing cyanosis or edema Results - Labs CBC & BMP: 06/09/16 05:09 06/09/16 05:09 Quality Measures - VTE Contraindication to Pharmacological VTE Prophylaxis: Coagulopathy
[2016-06-10] MEDS: ALLOPURINOL 300 MG TABLET PO SCH (09:03)
[2016-06-10] MEDS: FLUTICASONE/SALMETEROL 250-50 DISKUS 14 DOSE INH SCH ×2 (09:03→20:33)
[2016-06-10] MEDS: PANTOPRAZOLE 40 MG TABLET PO SCH (09:04)
[2016-06-10] MEDS: DESITIN 4OZ/NYSTATIN 15 GRAM MIXTURE PASTE TOP SCH ×2 (09:04→20:33)
[2016-06-10] MEDS: CALCIUM (CARBONATE) 500 MG TABLET PO SCH ×2 (09:05→20:31)
[2016-06-10] MEDS: METOPROLOL TARTRATE 50 MG TABLET PO SCH ×2 (09:06→20:30)
[2016-06-10] MEDS: MULTIVITAMIN (OCUVITE) TABLET PO SCH ×2 (09:06→20:31)
[2016-06-10] MEDS: LOSARTAN 50 MG TABLET PO SCH (09:07)
[2016-06-10] MEDS: DILTIAZEM 60 MG TABLET PO SCH ×2 (09:07→20:30)
[2016-06-10] MEDS: ASPIRIN EC 81 MG TABLET PO SCH (09:09)
[2016-06-10] MEDS: POTASSIUM CHLORIDE RIDER 10 MEQ in PREMIX 1 EACH IV PRN ×3 (09:47→11:55)
--- NOTE | 2016-06-10 11:43 | Pulmonology Progress Note ---
Pulmonary - PN: Subj Interval history: This is an 89-year-old white female from [place]. She was visiting her family. She had sepsis and this was followed by cardiac arrest. She appeared to have asystole. She now has a cardiac pacemaker. She has endocarditis of the prosthetic aortic valve. She is on antibiotics. She was on mechanical ventilation and is now off. She appears to be breathing well. Does not plan to put a permanent pacemaker and while she is having endocarditis. This morning the patient's alert oriented eating breakfast. She has no new requests. There have been no complaints. Chest x-ray from 3 11/08/2016 shows massive cardiomegaly there may be very mild pulmonary edema. Lab. White blood cell count is 21,800 with 85 segs. H&H is 10.5/33.5. Platelets 290,000. Electrolytes are normal. Creatinine 0.7 with a BUN of 19. Microbiology. A number of blood cultures have grown Enterococcus faecalis 06/10/2016. Patient's had a stable night. She had a fever above 100. There are no new cultures. White count remains elevated 21,885 segs. H&H 10.5/33.5. Platelets 290,000. Electrolytes are normal. Creatinine 0.7. BUN is 19. Physical exam. Vital signs. See below Psychiatric. Oriented 3 Neurologic. Cranial nerves are intact with decreased hearing acuity bilaterally. Long track motor functions intact. Neck is symmetrical slightly kyphotic with no meningismus. Lymphatics no submandibular cervical supraclavicular adenopathy. No epitrochlear adenopathy. Chest. Clear Heart. Far lateral PMI. Abdomen. Nondistended. Positive bowel sounds. Extremities. No obvious deep venous thrombophlebitis The remainder the physical exam is negative. Plan. 1. Continue present regimen. 2. Follow-up labs and x-rays as already ordered. Exam (Progress Note) - Constitutional Vitals: Period Temp Pulse Resp BP Sys/Fitzgerald Pulse Ox Last 24 Hr 97.6 F-100.1 F 70-70 15-35 116-166/68-99 90-95 Results - Labs CBC & BMP: 06/09/16 05:09 06/09/16 05:09
[2016-06-10] MEDS: ATORVASTATIN 10 MG TABLET PO SCH (20:31)
[2016-06-11] MEDS: ENOXAPARIN 80 MG/0.8 ML SYRINGE SUBCUT SCH (05:13)
--- NOTE | 2016-06-11 07:14 | Pulmonology Progress Note ---
Pulmonary - PN: Subj Interval history: This 89-year-old white female had asystole with syncope. She has a temporary pacemaker. She was ventilated but was able to be extubated yesterday. She has a urinary tract infection with enterococcus with enterococcal sepsis. She had another set of blood cultures drawn yesterday. If they air turning machine feeder to be negative then we could proceed with a permanent pacemaker/AICD. At present she is alert responsive. She is a little bit dysarthric. ABGs look good post extubation. 06/05/2016 patient has done well since extubation. O2 sats in high 90s on nasal oxygen. She is comfortable. Last set of blood cultures are negative thus far. Probably could proceed with permanent pacemaker. 06/06/2016 patient is afebrile and has negative cultures from 3 days back. She is set up for permanent pacemaker today. The mechanism of her cardiac arrest was felt to be cardiac rhythm problems with asystole. Patient is responsive. She continues to be a bit tachypneic probably some congestive heart failure. 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 Pacemaker was changed to a different site but it is still temporary because of the bacteremia. Last cultures were negative. She is breathing 25-35 times a minute. She is requiring 50% Ventimask and oxygen saturation is 94% on that. Yesterday's chest x-ray did not look wet. We will repeat one tomorrow. Her white blood count is up to 27,000. Her INR was also 4.5 yesterday which would preclude permanent pacemaker placement. That will probably be put off until she said adequate antibiotics to clear her endocarditis. Do not know if she will need her aortic valve replaced again. 06/08/2016 patient's respiratory rate has slowed down to the upper teens or 20s. Oxygen saturation a little better. Chest x-ray still shows small pleural effusions and mild congestive heart failure. 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 She is afebrile. White blood count is come down from 27,000-20, 000. Stable from pulmonary standpoint. 06/11/2016 patient has been afebrile over the weekend. Starting to take in a little more oral nourishment. Awaiting placement. Will need prolonged antibiotics. Prognosis is guarded due to advanced age and endocarditis from a prosthetic valve. Cardiac surgery has recommended against surgery. Exam (Progress Note) - Constitutional Vitals: Period Temp Pulse Resp BP Sys/Fitzgerald Pulse Ox Last 24 Hr 97.9 F-100.1 F 70-81 14-39 108-150/68-106 90-95 Exam: Vital signs normal, except respiratory rate in the low to mid 20s. Pupils react to light. She is alert and appears oriented. Her speech is a little dysarthric. Neck is supple no bruits. Chest reveals a few scattered rhonchi. Heart paced rhythm no murmurs. Abdomen soft nontender no masses. Bowel sounds present. Extremities no clubbing cyanosis edema. Calves nontender. Results - Labs CBC & BMP: 06/09/16 05:09 06/10/16 14:50 Lab Results: I have reviewed the past 24 hour labs Assessment and Plan (1) Sepsis Status: Acute Assessment and plan: She has positive blood cultures for enterococcus and is on ampicillin. Will need to have negative blood cultures before consideration of a permanent pacemaker/AICD is done. 06/04/2016 this appears to be controlled with antibiotics. Repeating blood cultures. Once we have negative blood cultures and a permanent pacemaker can be planned. 06/05/2016 continuing with antibiotics. Last set of blood cultures are negative thus far. 06/06/2016 sepsis appears to be controlled. 06/07/2016 blood cultures negative now. Appears to have endocarditis however. 06/08/2016 negative blood cultures, no fever, white blood count coming down. Known endocarditis. 06/11/2016 sepsis is controlled. Current Visit: Yes (2) Urinary tract infection Status: Acute Assessment and plan: Continuing ampicillin for enterococcal UTI. 06/05/2016 continuing ampicillin for enterococcal UTI and sepsis. Needs a total of about 2 weeks more. 06/06/2016 continuing antibiotics for enterococcal UTI with sepsis. Needs antibiotics through about 17 June. 06/07/2016 on appropriate antibiotics for the enterococcus. 06/08/2016 again on appropriate antibiotics 06/11/2016 antibiotics are given now for enterococcal sepsis. Enterococcal UTI should be under control. Current Visit: Yes Qualifiers: Urinary tract infection type: site unspecified Hematuria presence: without hematuria Qualified Code(s): N39.0 - Urinary tract infection, site not specified (3) H/O aortic valve replacement Status: Chronic Assessment and plan: Chronically on Coumadin for a mechanical aortic valve replacement in the past. Further records indicate that it is bioprosthetic. 06/04/2016 has a bioprosthetic aortic valve. 06/06/2016 this is all the more reason for at least 2 weeks of IV antibiotics for the enterococcal sepsis. 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 Cardiac surgery has recommended against surgery. She is high risk either way. 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 Needs prolonged antibiotics. Current Visit: Yes (4) Cardiac asystole Status: Acute Assessment and plan: Had long pauses and probably asystole as the mechanism of her syncope and arrest. 06/04/2016 this is the cause of her syncope. Has temporary pacemaker. 06/05/2016 does not appear to have any significant hypoxic brain injury. Temporary pacemaker in place. Plan for permanent pacemaker when sepsis controlled. Again last blood culture negative thus far. 06/06/2016 mental status is good. For permanent pacemaker today. 06/07/2016 she has a pacemaker now for the episode of asystole. 06/08/2016 has an external pacemaker. Still concerned about placing a permanent pacemaker due to her sepsis. 06/11/2016 has a pacemaker that is semipermanent. Current Visit: Yes (5) Syncope, cardiogenic Status: Acute Assessment and plan: Arrhythmia was felt to be the cause of her syncope. Defer to Dr. Palacios. 06/05/2016 due to asystole. Current Visit: Yes (6) Acute respiratory failure Status: Acute Assessment and plan: This is likely due to the arrhythmia and some congestive heart failure. ABGs look good. Patient is presently sedated. Will hold sedation and start CPAP trials and see when we can get her extubated. 06/04/2016 ABGs look good post extubation. Does not have chronic lung disease. 06/05/2016 this is much improved. 06/06/2016 patient has done well since extubation except for tachypnea. O2 sats look okay. Chest x-ray is pending 06/07/2016 she is off the ventilator. Still requiring a good bit of oxygen. 06/08/16 on nasal oxygen. Respiratory rate is slowed down. Respiratory failure is controlled 06/11/2016 O2 sats in mid 90s on nasal oxygen. Current Visit: Yes
[2016-06-11] MEDS: ASPIRIN EC 81 MG TABLET PO SCH (08:20)
[2016-06-11] MEDS: PANTOPRAZOLE 40 MG TABLET PO SCH (08:20)
[2016-06-11] MEDS: MULTIVITAMIN (OCUVITE) TABLET PO SCH ×2 (08:20→21:50)
[2016-06-11] MEDS: DILTIAZEM 60 MG TABLET PO SCH ×2 (08:20→21:49)
[2016-06-11] MEDS: LOSARTAN 50 MG TABLET PO SCH (08:20)
[2016-06-11] MEDS: CALCIUM (CARBONATE) 500 MG TABLET PO SCH ×3 (08:20→21:50)
[2016-06-11] MEDS: ALLOPURINOL 300 MG TABLET PO SCH (08:20)
[2016-06-11] MEDS: METOPROLOL TARTRATE 50 MG TABLET PO SCH ×2 (08:21→21:51)
[2016-06-11] MEDS: DESITIN 4OZ/NYSTATIN 15 GRAM MIXTURE PASTE TOP SCH ×2 (08:21→21:51)
[2016-06-11] MEDS: FLUTICASONE/SALMETEROL 250-50 DISKUS 14 DOSE INH SCH ×2 (08:21→21:51)
--- NOTE | 2016-06-11 09:00 | Cardiology Progress Note ---
Tyree Gomes Rachel, RN, am scribing for, and in the presence of, Newton Muñiz MD 08:55. Assessment and Plan (1) Enterococcal bacteremia Status: Acute Assessment and plan: Continue current plan of care with antibiotics. Current Visit: Yes (2) Enterococcus UTI Status: Acute Assessment and plan: Continue current plan of care with antibiotics. Current Visit: Yes (3) Sepsis Status: Acute Assessment and plan: Patient is hemodynamically stable. Continue current plan of care with antibiotics. Current Visit: Yes (4) Dyslipidemia Status: Chronic Assessment and plan: Continue current plan of care with statin. Current Visit: Yes (5) H/O aortic valve replacement Status: Chronic Current Visit: Yes (6) HTN (hypertension) Status: Chronic Assessment and plan: This is currently well controlled. Will continue current plan of care. Current Visit: Yes (7) Cardiac asystole Status: Acute Assessment and plan: externalized pacemaker noted. Current Visit: Yes (8) Atrial fibrillation Status: Chronic Assessment and plan: Permanent atrial fibrillation noted. Rate is well controlled at 70 bpm. Patient is being anticoagulated with Lovenox. Technique current plan of care. Current Visit: Yes (9) SBE (subacute bacterial endocarditis) Status: Acute Assessment and plan: She is on long-term antibiotic therapy at this time. She is clinically stable to improved. Long-term prognosis is poor. Current Visit: Yes Cardiology - PN: Subj Interval history: 89-year-old female status post asystole and externalized pacemaker. Patient has chronic atrial fibrillation. She has Enterococcal endocarditis of prosthetic aortic valve. Patient is currently being treated for enterococcal bacteremia and UTI. Patient was seen in the CCU. She is resting in bed in no acute distress. Requiring oxygen at 2 L nasal cannula. She is currently in atrial fibrillation with ventricular pacing, heart rate is well controlled at 70 bpm. DNI. Vital signs are stable. She is being anticoagulated with Lovenox. Will continue to monitor patient closely in the CCU. Active Medications Acetaminophen (Tylenol Tab) 325 mg PO Q4H PRN PRN Reason: fever, headache/body aches Last Admin: 06/05/16 14:49 Dose: 325 mg Hydrocodone Bitart/Acetaminophen (Belt 5-325) 1 tablet PO Q4H PRN PRN Reason: Pain Moderate (4-7) Albuterol/Ipratropium (Duoneb) 3 ml RESP TX RT Q4H PRN PRN Reason: Shortness of Breath/Wheezing Last Admin: 05/31/16 04:35 Dose: 3 ml Allopurinol (Zyloprim) 300 mg PO DAILY [facility] Last Admin: 06/10/16 09:03 Dose: 300 mg Aspirin () 81 mg PO DAILY [facility] Last Admin: 06/10/16 09:09 Dose: 81 mg Atorvastatin Calcium (Lipitor) 5 mg PO BEDTIME [facility] Last Admin: 06/10/16 20:31 Dose: 5 mg Calcium (Oscal 500) 500 mg PO BID [facility] Last Admin: 06/10/16 20:31 Dose: 500 mg Diltiazem HCl (Cardizem Tab) 120 mg PO BID [facility] Last Admin: 06/10/16 20:30 Dose: 120 mg Enoxaparin Sodium (Lovenox) 80 mg SUBCUT Q12H [facility] Last Admin: 06/11/16 05:13 Dose: 80 mg Hydralazine HCl (Apresoline Inj) 10 mg IV Q2H PRN PRN Reason: Blood Pressure-Increased Last Admin: 06/06/16 17:33 Dose: 10 mg Hydralazine HCl (Apresoline Inj) 15 mg IV Q2H PRN PRN Reason: Blood Pressure-Increased Last Admin: 06/07/16 02:50 Dose: 15 mg Potassium Chloride 10 meq/ (Premix) 100 mls @ 100 mls/hr IV .PER PROTOCOL PRN; Protocol PRN Reason: Per Protocol Last Infusion: 06/10/16 13:03 Dose: Infused Magnesium Sulfate 4 gm/ Premix 100 mls @ 25 mls/hr IV .PER PROTOCOL PRN; Protocol PRN Reason: Per Protocol Magnesium Sulfate 2 gm/ Premix 50 mls @ 25 mls/hr IV .PER PROTOCOL PRN; Protocol PRN Reason: Per Protocol Last Infusion: 06/01/16 06:47 Dose: Infused Fat Emulsion Intravenous (Intralipid 20%) 250 mls @ 25 mls/hr IV QOTHER DAY [facility] Last Admin: 06/04/16 08:06 Dose: Not Given Chromium/Copper/Manganese/Seleni/Zn 1 ml/ Multivitamins/Minerals 10 ml/ Amino Acids/Electrolytes/Dextrose 2,011 mls @ 50 mls/hr IV .Q24H [facility] PRN Reason: Protocol Last Admin: 06/04/16 08:06 Dose: Not Given Daptomycin 500 mg/ Sodium (Chloride) 100 mls @ 200 mls/hr IV Q24H [facility] Last Infusion: 06/10/16 09:48 Dose: Infused Losartan Potassium (Cozaar) 100 mg PO DAILY [facility] Last Admin: 06/10/16 09:07 Dose: 100 mg Meloxicam (Mobic) 7.5 mg PO BID PRN PRN Reason: Pain Metoprolol Tartrate (Lopressor Tab) 50 mg PO BID [facility] Last Admin: 06/10/16 20:30 Dose: 50 mg Nystatin/Zinc Oxide (Skin Protectant Mixture) 1 applic TOP BID [facility] Last Admin: 06/10/16 20:33 Dose: 1 applic Ondansetron HCl (Zofran Inj) 4 mg IV Q6H PRN PRN Reason: Nausea/Vomiting Last Admin: 06/04/16 10:25 Dose: 4 mg Pantoprazole Sodium (Protonix Tab) 40 mg PO DAILY [facility] Last Admin: 06/10/16 09:04 Dose: 40 mg Fluticasone/Salmeterol (Advair 250-50) 1 puff INH BID [facility] Last Admin: 06/10/16 20:33 Dose: 1 puff Vit A/Vit C/Vit E/Selen/Cu/Zn/Lutei (Ocuvite) 1 tablet PO BID [facility] Last Admin: 06/10/16 20:31 Dose: 1 tablet Exam (Progress Note) - Constitutional Vitals: Period Temp Pulse Resp BP Sys/Fitzgerald Pulse Ox Last 24 Hr 97.9 F-98.8 F 70-81 14-39 108-150/68-106 90-95 General appearance: no acute distress, over weight - Head Head exam: Present: normal inspection, normocephalic, atraumatic - Respiratory Respiratory exam: Present: clear to auscultation bilaterally, decreased breath sounds. Absent: accessory muscle use, chest wall tenderness, rales, rhonchi, stridor, wheezes - Cardiovascular Cardiovascular exam: Present: irregular rhythm, systolic murmur, other ( Externalized pacemaker noted to right chest wall). Absent: bradycardia, gallop , rubs, tachycardia - GI/Abdominal GI/Abdominal exam: Present: normal bowel sounds, soft. Absent: distended, firm , mass, tenderness - Skin Skin exam: Present: normal color, warm, dry. Absent: cyanosis, erythema Result/EKG - Labs CBC & BMP: 06/09/16 05:09 06/10/16 14:50 Lab Results: I have reviewed the past 24 hour labs (Atrial fibrillation) Labs: Laboratory Results - last 24 hr 06/10/16 14:50 Potassium 4.0 - EKG EKG results: interpreted by me Quality Measures - VTE Contraindication to Pharmacological VTE Prophylaxis: Coagulopathy I, Newton Muñiz MD, personally performed the services described in this documentation, ascribed by Chio Clements RN in my presence, and it is both accurate and complete 900 .
[2016-06-11 09:14] LABS: Basophils # 0.1 10*3/uL (0.0-0.2); Basophils % 0.3 % (0.0-0.8); Eosinophils # 0.1 10*3/uL (0.0-0.87); Eosinophils % 0.2 % (0.00-10.9); Hematocrit 35.3 VOL% (35.7-47.0); Immature Granulocytes % 2.3 %; Immature Granulocytes Absolute 0.56 #; Lymphocytes # 2.1 10*3/uL (1.4-4.0); Lymphocytes % 8.7 % (21.3-54.2); Mean Corpuscular HGB Conc 31.2 GM/DL (32-36); Mean Corpuscular Hemoglobin 28 PG (27-34); Mean Corpuscular Volume 89.8 FL (87-102); Mean Platelet Volume 11.5 FL (9.6-12.0); Monocytes # 1.5 10*3/uL (0.11-0.8); Monocytes % 6.3 % (1.7-12.7); Neutrophils % 82.2 % (38.7-73.9); Platelet Count 228 T/CUMM (130-400); Red Blood Count 3.93 MC/CUMM (3.8-5.5); Red Cell Distribution Width 15.9 % (9.3-17.3); White Blood Count 24.4 T/CUMM (4-12)
[2016-06-11 09:42] LABS: Band Neutrophils 1 % (0-10); Hypochromasia 1+; Lymphocytes 8 % (20-55); Segmented Neutrophils 82 % (50-85); Total Cells Counted 100
[2016-06-11 09:43] LABS: Microcytosis 1+; Ovalocytes Slight; Polychromasia Slight
[2016-06-11 09:44] LABS: Platelet Estimate Adequate
[2016-06-11 09:47] LABS: Calcium 9.2 MG/DL (8.5-10.1); Osmolality,Calculated 286.3 MOS/KG (273-304); Potassium 3.7 MMOL/L (3.5-5.1)
--- NOTE | 2016-06-11 11:48 | Electrophysiology Progress Not ---
Assessment and Plan (1) Cardiac asystole Status: Acute Assessment and plan: 89-year-old female, with permanent atrial fibrillation, status post aortic valve replacement, syncope, likely due to bradycardia. E. faecalis UTI, sepsis. 3: RVF temp PM implant, then reposition 06/02: VF arrest 06/06: FREEDOM, externalized VVI PM implant, RFV temp PM explant -Externalized PM. Keep occlusive dressing in place. Recommend dressing and Biopatch change only if sign of infection noted or 1/week. This has to be done with full sterile technique. Once endocarditis heals, a permanent device may be implanted - at least 6 weeks after appropriate abx. If she is moved to a different facility, make sure she gets these instructions. With any questions, call me or my office. -Wear the sling all time -PVT/VF. No recurrence. Was likely due to coronary embolization for vegetation , had small ME from this. Increase metoprolol to 50 mg bid -Bioprosthetic AVR endocarditis. CTS input noted. Poor prognosis. -Anticoagulation. High embolic risk from AF and endocarditis. Cont anticoagulation. Current Visit: Yes (2) Atrial fibrillation Status: Inactive Current Visit: Yes Qualifiers: Atrial fibrillation type: chronic Qualified Code(s): I48.2 - Chronic atrial fibrillation (3) Dyslipidemia Status: Chronic Current Visit: Yes (4) Fever Status: Acute Current Visit: Yes (5) HTN (hypertension) Status: Chronic Current Visit: Yes (6) Syncope, cardiogenic Status: Acute Current Visit: Yes (7) Urinary tract infection Status: Acute Current Visit: Yes Qualifiers: Urinary tract infection type: site unspecified Hematuria presence: without hematuria Qualified Code(s): N39.0 - Urinary tract infection, site not specified (8) Valvular disease Status: Acute Current Visit: Yes (9) Gout Status: Acute Current Visit: No (10) H/O aortic valve replacement Status: Chronic Current Visit: Yes Electrophysiology Subjective Interval history: She is more alert today. Still poor appetite. Afebrile. Atrial fibrillation and ventricular paced rhythm. The externalized pacemaker implant site shows no signs of infection and there is no hematoma or bleeding. Exam - Constitutional Vitals: Period Temp Pulse Resp BP Sys/Fitzgerald Pulse Ox Last 24 Hr 97.9 F-98.8 F 70-81 14-39 108-150/68-106 90-95 General appearance: over weight - Head Head exam: Present: normal inspection - Eye Eye exam: Absent: conjunctival injection Pupils: Absent: dilated - ENT ENT exam: Present: normal external ear exam - Neck Neck exam: Present: normal inspection - Respiratory Respiratory exam: Present: decreased breath sounds - Cardiovascular Cardiovascular exam: Present: irregular rhythm, systolic murmur, other ( externalized vvi pm) - GI/Abdominal GI/Abdominal exam: Present: normal bowel sounds - Extremities Exam Extremities exam: Present: normal inspection, normal capillary refill, edema (1+ ) - Neurological Exam Neurological exam: Present: alert - Psychiatric Psychiatric exam: Present: normal affect, normal mood - Skin Skin exam: Present: normal color, warm. Absent: cyanosis Results - Labs CBC & BMP: 06/11/16 09:10 06/11/16 09:10 Lab Results: I have reviewed the past 24 hour labs Quality Measures - VTE Contraindication to Pharmacological VTE Prophylaxis: Coagulopathy
--- NOTE | 2016-06-11 13:48 | Hospitalist Progress Note ---
Assessment and Plan (1) Cardiac asystole Status: Acute Assessment and plan: s/p temporary pacer Current Visit: Yes (2) Acute respiratory failure with hypoxia Status: Acute Assessment and plan: resolved, move upstairs, check bnp and cxr Current Visit: Yes (3) Enterococcus UTI Status: Acute Assessment and plan: Change to ampicillin IV good sensitivities. PICC line Current Visit: Yes (4) Enterococcal bacteremia Status: Acute Assessment and plan: ampicillin for total of 6 weeks Current Visit: Yes (5) Atrial fibrillation Status: Chronic Assessment and plan: cont lovenox, will ask about converting to eliquis Current Visit: Yes (6) SBE (subacute bacterial endocarditis) Status: Acute Assessment and plan: treatment with IV ampicillin for 6 weeks Current Visit: Yes Hospitalist: Subjective Interval history: Patient looks great she sitting up in the bed and talking to her daughter. We gave her daughter and update. She would like her to go to [facility] for IV antibiotics. Patient had good sensitivity on ampicillin will switch her daptomycin to ampicillin. We will go ahead and put a PICC line in her today as her cultures have been no growth. Awaiting callback from Dr. Serna about her anticoagulation. Exam - Constitutional Vitals: Period Temp Pulse Resp BP Sys/Fitzgerald Pulse Ox Last 24 Hr 97.4 F-98.8 F 70-81 14-39 119-153/70-106 90-95 Exam: Heart Rate-[RRR] Lungs-[CTAB] GI-[+bs soft, NT] Ext-[no edema] Neuro [Motor 5/5], [alert and oriented times 2] psych [normal mood and affect] General [no acute distress] Results - Labs CBC & BMP: 06/11/16 09:10 06/11/16 09:10 Lab Results: I have reviewed the past 24 hour labs Labs: blood cultures no growth Quality Measures - VTE Contraindication to Pharmacological VTE Prophylaxis: Coagulopathy
[2016-06-11] MEDS: AMPICILLIN INJ 2,000 MG in SODIUM CHLORIDE 0.9% 100 ML IV SCH (14:00)
--- NOTE | 2016-06-11 15:16 | XRay Report ---
XR chest 1V portable Indication: Shortness of breath. Chest one view: Comparison 06/08/2016. Pacemaker, cardiomegaly, calcified atheromatous disease, median sternotomy wires are stable. Worsening obscuration of the left lung base is present. Overall, lung volumes have decreased as well. Impression: Worsening left basilar atelectasis or pneumonia. Worsening pulmonary hypoinflation. PROCEDURE INTERPRETED AT [facility] DEPARTMENT OF RADIOLOGY Final Report Signed by: Geronimo Rose M.D.
[2016-06-11] MEDS: APIXABAN 5 MG TABLET PO SCH (21:49)
[2016-06-11] MEDS: ATORVASTATIN 10 MG TABLET PO SCH (21:50)
[2016-06-12] MEDS: AMPICILLIN INJ 2,000 MG in SODIUM CHLORIDE 0.9% 100 ML IV SCH ×5 (04:11→17:34)
[2016-06-12 06:27] LABS: Basophils # 0.1 10*3/uL (0.0-0.2); Basophils % 0.3 % (0.0-0.8); Eosinophils # 0.1 10*3/uL (0.0-0.87); Eosinophils % 0.3 % (0.00-10.9); Hematocrit 35.9 VOL% (35.7-47.0); Hemoglobin 11.1 GM/DL (12.0-16.0); Immature Granulocytes % 1.6 %; Immature Granulocytes Absolute 0.34 #; Lymphocytes % 9.5 % (21.3-54.2); Mean Corpuscular HGB Conc 30.9 GM/DL (32-36); Mean Corpuscular Hemoglobin 28 PG (27-34); Mean Corpuscular Volume 90.2 FL (87-102); Mean Platelet Volume 12.1 FL (9.6-12.0); Monocytes # 1.4 10*3/uL (0.11-0.8); Monocytes % 6.9 % (1.7-12.7); NRBC # 0.15 10*3/uL; Neutrophils # 16.8 10*3/uL (1.4-7.4); Neutrophils % 81.4 % (38.7-73.9); Platelet Count 206 T/CUMM (130-400); Red Blood Count 3.98 MC/CUMM (3.8-5.5); Red Cell Distribution Width 16.2 % (9.3-17.3); White Blood Count 20.7 T/CUMM (4-12)
[2016-06-12 06:50] LABS: Elliptocytes Few; Hypochromasia 1+; Lymphocytes 6 % (20-55); Macrocytosis Slight; Nucleated Red Blood Cells 2 (0-5); Platelet Estimate Normal; Polychromasia Slight; Segmented Neutrophils 87 % (50-85); Total Cells Counted 100
[2016-06-12 07:11] LABS: Calcium 8.9 MG/DL (8.5-10.1); Osmolality,Calculated 288.8 MOS/KG (273-304); Potassium 4.1 MMOL/L (3.5-5.1)
--- NOTE | 2016-06-12 07:39 | Pulmonology Progress Note ---
Pulmonary - PN: Subj Interval history: This 89-year-old white female had asystole with syncope. She has a temporary pacemaker. She was ventilated but was able to be extubated yesterday. She has a urinary tract infection with enterococcus with enterococcal sepsis. She had another set of blood cultures drawn yesterday. If they die turner to be negative then we could proceed with a permanent pacemaker/AICD. At present she is alert responsive. She is a little bit dysarthric. ABGs look good post extubation. 06/05/2016 patient has done well since extubation. O2 sats in high 90s on nasal oxygen. She is comfortable. Last set of blood cultures are negative thus far. Probably could proceed with permanent pacemaker. 06/06/2016 patient is afebrile and has negative cultures from 3 days back. She is set up for permanent pacemaker today. The mechanism of her cardiac arrest was felt to be cardiac rhythm problems with asystole. Patient is responsive. She continues to be a bit tachypneic probably some congestive heart failure. 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 Pacemaker was changed to a different site but it is still temporary because of the bacteremia. Last cultures were negative. She is breathing 25-35 times a minute. She is requiring 50% Ventimask and oxygen saturation is 94% on that. Yesterday's chest x-ray did not look wet. We will repeat one tomorrow. Her white blood count is up to 27,000. Her INR was also 4.5 yesterday which would preclude permanent pacemaker placement. That will probably be put off until she said adequate antibiotics to clear her endocarditis. Do not know if she will need her aortic valve replaced again. 06/08/2016 patient's respiratory rate has slowed down to the upper teens or 20s. Oxygen saturation a little better. Chest x-ray still shows small pleural effusions and mild congestive heart failure. 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 She is afebrile. White blood count is come down from 27,000-20, 000. Stable from pulmonary standpoint. 06/11/2016 patient has been afebrile over the weekend. Starting to take in a little more oral nourishment. Awaiting placement. Will need prolonged antibiotics. Prognosis is guarded due to advanced age and endocarditis from a prosthetic valve. Cardiac surgery has recommended against surgery. 06/12/2016 patient now on regular recio. Afebrile. Still has elevated white count. Needs prolonged IV antibiotics. Arrangements being made for her to go to [facility] to an LTAC there. Her daughter teaches college at [place]. That is nearby. From pulmonary standpoint she is stable. I will sign off. Please call if needed further. Exam (Progress Note) - Constitutional Vitals: Period Temp Pulse Resp BP Sys/Fitzgerald Pulse Ox Last 24 Hr 96.9 F-98.2 F 70-70 17-28 106-143/63-90 92-96 Exam: Vital signs normal, respiratory rate in the 15-20 range. Pupils react to light. She is alert and appears oriented. Her speech is a little dysarthric. Neck is supple no bruits. Chest reveals a few scattered rhonchi. Heart paced rhythm no murmurs. Abdomen soft nontender no masses. Bowel sounds present. Extremities no clubbing cyanosis edema. Calves nontender. Results - Labs CBC & BMP: 06/12/16 05:41 06/12/16 05:41 Lab Results: I have reviewed the past 24 hour labs - Diagnostic Findings Procedure: Chest x-ray: image reviewed by me (Cardiomegaly, pacemaker noted, lung nails clear.) Assessment and Plan (1) Sepsis Status: Acute Assessment and plan: She has positive blood cultures for enterococcus and is on ampicillin. Will need to have negative blood cultures before consideration of a permanent pacemaker/AICD is done. 06/04/2016 this appears to be controlled with antibiotics. Repeating blood cultures. Once we have negative blood cultures and a permanent pacemaker can be planned. 06/05/2016 continuing with antibiotics. Last set of blood cultures are negative thus far. 06/06/2016 sepsis appears to be controlled. 06/07/2016 blood cultures negative now. Appears to have endocarditis however. 06/08/2016 negative blood cultures, no fever, white blood count coming down. Known endocarditis. 06/11/2016 sepsis is controlled. 06/12/2016 plans are for prolonged IV antibiotics for her endocarditis. Sepsis is controlled. Current Visit: Yes (2) Urinary tract infection Status: Acute Assessment and plan: Continuing ampicillin for enterococcal UTI. 06/05/2016 continuing ampicillin for enterococcal UTI and sepsis. Needs a total of about 2 weeks more. 06/06/2016 continuing antibiotics for enterococcal UTI with sepsis. Needs antibiotics through about 17 June. 06/07/2016 on appropriate antibiotics for the enterococcus. 06/08/2016 again on appropriate antibiotics 06/11/2016 antibiotics are given now for enterococcal sepsis. Enterococcal UTI should be under control. Current Visit: Yes Qualifiers: Urinary tract infection type: site unspecified Hematuria presence: without hematuria Qualified Code(s): N39.0 - Urinary tract infection, site not specified (3) H/O aortic valve replacement Status: Chronic Assessment and plan: Chronically on Coumadin for a mechanical aortic valve replacement in the past. Further records indicate that it is bioprosthetic. 06/04/2016 has a bioprosthetic aortic valve. 06/06/2016 this is all the more reason for at least 2 weeks of IV antibiotics for the enterococcal sepsis. 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 Cardiac surgery has recommended against surgery. She is high risk either way. 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 Needs prolonged antibiotics. 06/12/2016 again prolonged antibiotics planned. Current Visit: Yes (4) Cardiac asystole Status: Acute Assessment and plan: Had long pauses and probably asystole as the mechanism of her syncope and arrest. 06/04/2016 this is the cause of her syncope. Has temporary pacemaker. 06/05/2016 does not appear to have any significant hypoxic brain injury. Temporary pacemaker in place. Plan for permanent pacemaker when sepsis controlled. Again last blood culture negative thus far. 06/06/2016 mental status is good. For permanent pacemaker today. 06/07/2016 she has a pacemaker now for the episode of asystole. 06/08/2016 has an external pacemaker. Still concerned about placing a permanent pacemaker due to her sepsis. 06/11/2016 has a pacemaker that is semipermanent. Current Visit: Yes (5) Syncope, cardiogenic Status: Acute Assessment and plan: Arrhythmia was felt to be the cause of her syncope. Defer to Dr. Palacios. 06/05/2016 due to asystole. Current Visit: Yes (6) Acute respiratory failure Status: Acute Assessment and plan: This is likely due to the arrhythmia and some congestive heart failure. ABGs look good. Patient is presently sedated. Will hold sedation and start CPAP trials and see when we can get her extubated. 06/04/2016 ABGs look good post extubation. Does not have chronic lung disease. 06/05/2016 this is much improved. 06/06/2016 patient has done well since extubation except for tachypnea. O2 sats look okay. Chest x-ray is pending 06/07/2016 she is off the ventilator. Still requiring a good bit of oxygen. 06/08/16 on nasal oxygen. Respiratory rate is slowed down. Respiratory failure is controlled 06/11/2016 O2 sats in mid 90s on nasal oxygen. 06/12/2016 respiratory failure resolved. Signing off for pulmonary. Current Visit: Yes
--- NOTE | 2016-06-12 08:23 | XRay Report ---
History: Patient on ventilator Date: 06/12/2016 Study: Chest x-ray AP portable Comparison exam: 06/11/2016 There is continued cardiomegaly. The mediastinal contours are unchanged in this patient status post prior median sternotomy. A right subclavian transvenous pacemaker remains in satisfactory position. There is some continued hazy edema/infiltrate in the right perihilar region and left lower lung. There is improved aeration in the left mid lung on the current exam. There is some persistent mild left pleural effusion. The osseous structures are unchanged. Impression: Continued bilateral edema/infiltrate. There is improved aeration in the left mid lung on the current exam. No interval worsening PROCEDURE INTERPRETED AT [facility] DEPARTMENT OF RADIOLOGY Final Report Signed by: Dr. Hirla Kruse
[2016-06-12] MEDS: CALCIUM (CARBONATE) 500 MG TABLET PO SCH ×2 (08:36→21:57)
[2016-06-12] MEDS: ALLOPURINOL 300 MG TABLET PO SCH (08:36)
[2016-06-12] MEDS: METOPROLOL TARTRATE 50 MG TABLET PO SCH (08:36)
[2016-06-12] MEDS: ASPIRIN EC 81 MG TABLET PO SCH (08:36)
[2016-06-12] MEDS: DILTIAZEM 60 MG TABLET PO SCH ×2 (08:36→21:59)
[2016-06-12] MEDS: LOSARTAN 50 MG TABLET PO SCH (08:36)
[2016-06-12] MEDS: PANTOPRAZOLE 40 MG TABLET PO SCH (08:36)
[2016-06-12] MEDS: MULTIVITAMIN (OCUVITE) TABLET PO SCH ×2 (08:36→21:57)
[2016-06-12] MEDS: DESITIN 4OZ/NYSTATIN 15 GRAM MIXTURE PASTE TOP SCH ×2 (08:37→21:56)
[2016-06-12] MEDS: APIXABAN 5 MG TABLET PO SCH ×2 (08:37→21:57)
[2016-06-12] MEDS: FLUTICASONE/SALMETEROL 250-50 DISKUS 14 DOSE INH SCH ×3 (09:07→23:54)
[2016-06-12] MEDS ORDERED: MAGNESIUM HYDROXIDE SUSP 30 ML UDCUP PO PRN (10:05)
[2016-06-12] MEDS ORDERED: BISACODYL 5 MG TABLET PO ONE (10:05)
--- NOTE | 2016-06-12 12:01 | Discharge Summary ---
Hospital Course - Hospital Course Hospital Course: This is an 89-year-old white female who presented to the ED from Dr. Villegas's office for further evaluation of dehydration, atrial fibrillation, and UTI on May 21, 2016. She has a history significant for hypertension, valvular heart disease, atrial fibrillation. Upon arrival, WBC was elevated at 17.9, BUN was elevated at 23, UA was positive, and she was started on IV antibiotics, IV fluids, acetaminophen and was admitted to the hospital medicine service for further evaluation and management of her condition. Her hospital course was relatively long 1 highlighted by Discharge Plan - Discharge Medications No Action amLODIPine [Norvasc] 5 mg PO QPM Aspirin [Ecotrin] 81 mg PO DAILY Calcium (Carbonate) [Oscal 500] 500 mg PO BID Fluticasone/Salmeterol 250-50 [Advair 250-50] 1 puff INH BID Furosemide Tab [Lasix Tab] 20 mg PO BID Meloxicam [Mobic] 7.5 mg PO BID PRN PRN Reason: Pain Metoprolol Tartrate 50 mg PO BID Warfarin [Coumadin] 3 mg PO QPM Allopurinol 300 mg PO DAILY Atorvastatin [Lipitor] 5 mg PO QPM diltiaZEM HCl [Diltiazem HCl] 120 mg PO DAILY Vit C/Selvin AC/Lut/Copper/Znox [Preservision Lutein Softgel] 1 each PO BID - Follow Up or Referral - Forms/Instructions Exam - Constitutional Vitals: Period Temp Pulse Resp BP Sys/Fitzgerald Pulse Ox Last 24 Hr 96.7 F-98.2 F 69-70 17-26 106-142/63-90 93-96 Discharge Results Procedures and tests throughout hospitalization: Pending Orders 05/29/16 22:01 Urine Culture Stat 06/12/16 US guide vascular access Routine 06/12/16 13:41 IR PICC line insertion Routine 06/13/16 04:00 BMP [Basic Metabolic Panel] IN AM CBC [Comp Blood Count Auto Diff] IN AM 06/14/16 04:00 BMP [Basic Metabolic Panel] IN AM CBC [Comp Blood Count Auto Diff] IN AM Labs on day of discharge: Labs from last 24 hours 06/12/16 06/12/16 06/11/16 05:41 05:41 14:07 WBC 20.7 H RBC 3.98 Hgb 11.1 L Hct 35.9 MCV 90.2 MCH 28 MCHC 30.9 L RDW 16.2 Plt Count 206 MPV 12.1 H Neut % (Auto) 81.4 H Lymph % (Auto) 9.5 L [place] % (Auto) 6.9 Eos % (Auto) 0.3 Baso % (Auto) 0.3 Neut # (Auto) 16.8 H Lymph # (Auto) 2.0 [place] # (Auto) 1.4 H Eos # (Auto) 0.1 Baso # (Auto) 0.1 Total Counted 100 Immature Gran % 1.6 Nucleated RBC % 0.7 Immature Gran # 0.34 Segmented Neutrophils 87 H Lymphocytes 6 L Monocytes 7 Nucleated RBCs 2 Nucleated RBCs # 0.15 Platelet Estimate Normal Polychromasia Slight Hypochromasia 1+ Macrocytosis Slight Elliptocytes Few Morphology Comment Sodium 144 Potassium 4.1 Chloride 106 Carbon Dioxide 24 Anion Gap 18.1 H BUN 20 H Creatinine 0.80 GFR Calculation 73 BUN/Creatinine Ratio 25.00 H Glucose 96 Calculated Osmolality 288.8 Calcium 8.9 B-Natriuretic Peptide 910 H DS: Provider Date of admission: 05/29/16 17:17 Primary care physician: . No PCP Attending physician on admission: Korin Alejo MD Consults: 05/29/16 22:01 Consult to Pharmacy [CONS] Routine Reason for Pharmacy Consult: Other Comment: coumadin management 05/30/16 15:15 Consult to Pharmacy [CONS] Routine Reason for Pharmacy Consult: Dose/Manage Vancomycin 05/31/16 06:24 Consult to Physician [CONS] Routine Comment: asystole episode Consulting Provider: Cardiology - [facility] When should Consulting Provider be notified: Now Person Notified: [place] with [facility] Date Notified: 05/31/16 Time Notified: 07:43 05/31/16 07:21 Consult to Physician [CONS] Routine Comment: s/p fall; C6 fracture Consulting Provider: Jerel Omalley Jr. When should Consulting Provider be notified: Now 05/31/16 08:57 Consult to Physician [CONS] Routine Comment: s/p fall; C6 fracture. Consulting Provider: Erik Blount When should Consulting Provider be notified: Now Date Notified: 05/31/16 Time Notified: 09:00 Consult Notification Comment: Left a message for the nurse with all information needed. 05/31/16 11:10 Consult to Physician [CONS] Routine Comment: post asystole;symptomatic tachybrady syndrome; Consulting Provider: Jason Palacios When should Consulting Provider be notified: Now 05/31/16 15:45 Consult to Physician [CONS] Routine Comment: s/p fall; C6 fracture Consulting Provider: Sanchez Salvador 06/01/16 08:57 Consult to Pharmacy [CONS] Routine Reason for Pharmacy Consult: Dose/Manage Gentamicin 06/02/16 14:57 Consult to Physician [CONS] Routine Comment: Pt on the ventilator Consulting Provider: Ian Martinez When should Consulting Provider be notified: Now 06/03/16 07:45 Consult to Physician [CONS] Routine Comment: rehabilitation services manager Consulting Provider: When should Consulting Provider be notified: Now Consult to Specialist Group: Pulmonology When should Consulting Provider be notified: Now 06/03/16 09:57 Consult to Dietitian [CONS] Routine Reason for Dietitian: TPN/PPN-Initiate/Manage Consult Comment: Dr. quiñones to start peripheral nutrition on patient @ 50 cc/ hr 06/05/16 18:40 Consult to Anesthesiology [CONS] Routine Consulting Provider: Reason for Anesthesiology: Pre-op Clearance Consult Comment: VVI PM implant in MAC 06/06/16 18:45 Consult to Physician [CONS] Routine Comment: Consulting Provider: Jie Tabares Consult to Specialist Group: Cardiothoracic Surgery When should Consulting Provider be notified: In am Person Notified: [place] Date Notified: 06/07/16 Time Notified: 08:07 06/07/16 11:10 Consult to Case Mgmt/Social Srvs [CONS] Routine Reason for Case Mgmt/Social Srvs: LTAC 06/11/16 14:06 Consult to Pharmacy [CONS] Routine Reason for Pharmacy Consult: Other Comment: convert to eliquis Discharging clinician: Karlo SCHMIDT Expected date of discharge: 06/12/16
--- NOTE | 2016-06-12 12:16 | Hospitalist Progress Note ---
Assessment and Plan (1) Cardiac asystole Status: Resolved Assessment and plan: s/p temporary pacer, will place permanent pacemaker when patient is done with IV antibiotics Current Visit: Yes (2) Acute respiratory failure with hypoxia Status: Acute Assessment and plan: Chest x-ray and elevated BNP consistent with pulmonary edema start IV Lasix. Current Visit: Yes (3) Enterococcus UTI Status: Acute Assessment and plan: Cont ampicillin IV good sensitivities. PICC line today Current Visit: Yes (4) Enterococcal bacteremia Status: Acute Assessment and plan: ampicillin for total of 6 weeks Current Visit: Yes (5) Atrial fibrillation Status: Chronic Assessment and plan: cont eliquis and rate control with dilt Current Visit: Yes (6) SBE (subacute bacterial endocarditis) Status: Acute Assessment and plan: treatment with IV ampicillin for 6 weeks (begining on 06/03/16) Current Visit: Yes Hospitalist: Subjective Interval history: Patient is getting a PICC line today. She will need a total of 6 weeks of IV antibiotics. Patient has a temporary pacemaker that is adhered to her skin. A permanent pacemaker will be placed as soon as she finishes her 6 weeks of IV antibiotics. Daughter wanted her to go to someplace in [place] but we are trying to find a place is willing to take her with a temporary pacemaker. We are still working on placement issues. Exam - Constitutional Vitals: Period Temp Pulse Resp BP Sys/Fitzgerald Pulse Ox Last 24 Hr 96.7 F-98.2 F 69-70 17-26 106-142/63-90 93-96 Exam: Heart Rate-[RRR] Lungs-[CTAB] GI-[+bs soft, NT] Ext-[no edema] Neuro [Motor 5/5], [alert and oriented times 2] psych [normal mood and affect] General [no acute distress] Results - Labs CBC & BMP: 06/12/16 05:41 06/12/16 05:41 Lab Results: I have reviewed the past 24 hour labs Labs: BNP 910 - Diagnostic Findings Procedure: Chest x-ray: report reviewed by me (Pulmonary edema) Quality Measures - VTE Contraindication to Pharmacological VTE Prophylaxis: Coagulopathy
[2016-06-12] MEDS: FUROSEMIDE 20 MG/2 ML VIAL IV SCH ×2 (13:08→15:20)
[2016-06-12] MEDS: POTASSIUM CHLORIDE 20 MEQ TABLET PO SCH (13:08)
--- NOTE | 2016-06-12 15:04 | Post Interventional Procedure ---
Pre-op diagnosis: Endocarditis Post-op diagnosis: same Procedure: PICC LUE Flouroscopy: 0.1 min Radiologist: Geronimo Rose Anesthesia: local Specimens: none sent Estimated blood loss: none Complications: none Condition: stable
--- NOTE | 2016-06-12 15:49 | Interventional Radiology Rpt ---
IR PICC line insertion, US guide vascular access Indication: Endocarditis. Long-term IV antibiotics necessary. PICC LINE Description: A formal timeout was performed. Maximum sterile barrier technique was used. Sonographic evaluation of the left upper extremity demonstrates patent and compressible basilar vein. The upper arm was prepped and draped in sterile fashion. 3 cc 1% lidocaine was administered subcutaneously. Under sonographic guidance, a micropuncture needle was advanced into the vein. A captured sonographic image documents the position of the needle. Needle was exchanged over a wire for a peel-away sheath. A dual lumen power PICC, cut to 44 cm, was advanced over the wire until the tip was at the RA-SVC junction. The position of the catheter was confirmed with fluoroscopic guidance and an image stored in PACS. The wire and sheath were removed. Both ports of the PICC were aspirated and flushed with heparinized saline. The device was secured with a StatLock. Fluoroscopy: 0.1 minute. Impression: PICC line ready for immediate use. Routine catheter care. PROCEDURE INTERPRETED AT [facility] DEPARTMENT OF RADIOLOGY Final Report Signed by: Geronimo Rose M.D.
--- NOTE | 2016-06-12 17:04 | Cardiology Progress Note ---
Dorinda Gomes April, RN, am scribing for, and in the presence of, Jg Staley MD 17:02. Assessment and Plan (1) Dyslipidemia Status: Chronic Current Visit: Yes (2) HTN (hypertension) Status: Chronic Current Visit: Yes (3) Acute respiratory distress Status: Resolved Current Visit: Yes (4) Cardiac asystole Status: Resolved Current Visit: Yes (5) Fever Status: Resolved Current Visit: Yes (6) Syncope, cardiogenic Status: Resolved Assessment and plan: 1. Clinically somewhat more fatigued than previously, but is hemodynamically stable today 2. Chronic atrial fibrillation with controlled rate 3. S/P of bioprosthetic aortic valve on IV antibiotics 4. Externalized single-chamber pacemaker noted right chest, awaiting completion of IV antibiotics prior to implantation of generator 5. Change metoprolol to Toprol 25 mg daily as her rate is controlled and she has fatigue 6. Currently on Eliquis with anemia; uncertain if she needs aspirin long-term but she was on it as a home medication. 7. Normal LV function noted at echocardiogram with EF 55% Current Visit: Yes (7) H/O aortic valve replacement Status: Chronic Current Visit: Yes Cardiology - PN: Subj Interval history: Ms. Sullivan is an 89-year-old female who is routinely followed by a buckle sorter in [place]. She has a history of atrial fibrillation, hypertension, status post aortic valve replacement, COPD, gout, dyslipidemia. She is chronically anticoagulated with Coumadin. She was here visiting family when she was admitted for UTI, dehydration, and age fibrillation. After admission she had several episodes of syncope and at one time was asystole. ACLS protocol immediately ensued with return of spontaneous circulation. Because of positive blood cultures, she had a temporary pacemaker implanted on 05/31/16. On June 02, she had an episode of Vfib and was successfully cardioverted. She was also intubated at that time but has since been extubated. On June 06 she had a FREEDOM and externalized single-chamber pacemaker implanted by Dr. Palacios. It appears she is waiting on placement in an LTAC facility. Currently she is resting in bed in no acute distress, oxygen use via nasal biprong. She denies chest pain, shortness of breath, palpitations, or dizziness. Externalized pacemaker noted to right chest, dressing intact. Vital signs have been stable. Anticoagulation was restarted yesterday, she is now on Eliquis 5 mg p.o. twice daily. She is more fatigued than she was yesterday. She denied any dizzy spells. We discussed trying to avoid stretching her right arm to avoid damaging the pacemaker leads or dislodging it. Exam (Progress Note) - Constitutional Vitals: Period Temp Pulse Resp BP Sys/Fitzgerald Pulse Ox Last 24 Hr 96.7 F-98.2 F 69-70 17-26 106-142/63-90 92-96 General appearance: no acute distress, over weight - Head Head exam: Absent: abrasion, hematoma - Eye Eye exam: Absent: periorbital swelling, laceration to eyelids - Neck Neck exam: Absent: tenderness - Respiratory Respiratory exam: Present: clear to auscultation bilaterally, other (Oxygen in use via nasal biprong). Absent: accessory muscle use, chest wall tenderness - Cardiovascular Cardiovascular exam: Present: irregular rhythm (Paced), other (Externalized pacemaker) - GI/Abdominal GI/Abdominal exam: Present: normal bowel sounds, soft. Absent: distended, tenderness - Extremities Exam Extremities exam: Present: other (Pulses to all extremities). Absent: edema - Neurological Exam Neurological exam: Present: alert, oriented X3 - Skin Skin exam: Present: warm, dry Result/EKG - Labs CBC & BMP: 06/12/16 05:41 06/12/16 05:41 Lab Results: I have reviewed the past 24 hour labs Labs: Laboratory Results - last 24 hr 06/11/16 06/11/16 06/11/16 09:10 09:10 14:07 WBC 24.4 H RBC 3.93 Hgb 11.0 L Hct 35.3 L MCV 89.8 MCH 28 MCHC 31.2 L RDW 15.9 Plt Count 228 D MPV 11.5 Neut % (Auto) 82.2 H Lymph % (Auto) 8.7 L [place] % (Auto) 6.3 Eos % (Auto) 0.2 Baso % (Auto) 0.3 Neut # (Auto) 20.0 H Lymph # (Auto) 2.1 [place] # (Auto) 1.5 H Eos # (Auto) 0.1 Baso # (Auto) 0.1 Total Counted 100 Immature Gran % 2.3 Nucleated RBC % 0.8 Immature Gran # 0.56 Segmented Neutrophils 82 Band Neutrophils 1 Lymphocytes 8 L Monocytes 9 Nucleated RBCs Nucleated RBCs # 0.20 Platelet Estimate Adequate Polychromasia Slight Hypochromasia 1+ Microcytosis 1+ Macrocytosis Ovalocytes Slight Elliptocytes Morphology Comment Sodium 141 Potassium 3.7 Chloride 103 Carbon Dioxide 28 Anion Gap 13.7 BUN 21 H Creatinine 0.80 GFR Calculation 73 BUN/Creatinine Ratio 26.00 H Glucose 149 H Calculated Osmolality 286.3 Calcium 9.2 B-Natriuretic Peptide 910 H 06/12/16 06/12/16 05:41 05:41 WBC 20.7 H RBC 3.98 Hgb 11.1 L Hct 35.9 MCV 90.2 MCH 28 MCHC 30.9 L RDW 16.2 Plt Count 206 MPV 12.1 H Neut % (Auto) 81.4 H Lymph % (Auto) 9.5 L [place] % (Auto) 6.9 Eos % (Auto) 0.3 Baso % (Auto) 0.3 Neut # (Auto) 16.8 H Lymph # (Auto) 2.0 [place] # (Auto) 1.4 H Eos # (Auto) 0.1 Baso # (Auto) 0.1 Total Counted 100 Immature Gran % 1.6 Nucleated RBC % 0.7 Immature Gran # 0.34 Segmented Neutrophils 87 H Band Neutrophils Lymphocytes 6 L Monocytes 7 Nucleated RBCs 2 Nucleated RBCs # 0.15 Platelet Estimate Normal Polychromasia Slight Hypochromasia 1+ Microcytosis Macrocytosis Slight Ovalocytes Elliptocytes Few Morphology Comment Sodium 144 Potassium 4.1 Chloride 106 Carbon Dioxide 24 Anion Gap 18.1 H BUN 20 H Creatinine 0.80 GFR Calculation 73 BUN/Creatinine Ratio 25.00 H Glucose 96 Calculated Osmolality 288.8 Calcium 8.9 B-Natriuretic Peptide - EKG EKG results: interpreted by me EKG shows: atrial fibrillation (Paced) Quality Measures - VTE Contraindication to Pharmacological VTE Prophylaxis: Coagulopathy I, Jg Staley MD, personally performed the services described in this documentation, ascribed by Gwendolyn Seth RN in my presence, and it is both accurate and complete [id number] .
--- NOTE | 2016-06-12 18:42 | Electrophysiology Progress Not ---
Assessment and Plan (1) Cardiac asystole Status: Resolved Assessment and plan: 89-year-old female, with permanent atrial fibrillation, status post aortic valve replacement, syncope, likely due to bradycardia. E. faecalis UTI, sepsis. 3: RVF temp PM implant, then reposition 06/02: VF arrest 06/06: FREEDOM, externalized VVI PM implant, RFV temp PM explant -Externalized PM. Keep occlusive dressing in place. Recommend dressing and Biopatch change only if sign of infection noted or 1/week. This has to be done with full sterile technique. Once endocarditis heals, a permanent device may be implanted - at least 6 weeks after appropriate abx. If she is moved to a different facility, make sure she gets these instructions. With any questions, call me or my office. -Wear the sling all time. May move R arm as allowed by the sling -PVT/VF. No recurrence. Was likely due to coronary embolization for vegetation , had small VT from this. Cont metoprolol -Bioprosthetic AVR endocarditis. CTS input noted. Poor prognosis. -Anticoagulation. High embolic risk from AF and endocarditis. Cont anticoagulation. Current Visit: Yes (2) Atrial fibrillation Status: Inactive Current Visit: Yes Qualifiers: Atrial fibrillation type: chronic Qualified Code(s): I48.2 - Chronic atrial fibrillation (3) Dyslipidemia Status: Chronic Current Visit: Yes (4) Fever Status: Resolved Current Visit: Yes (5) HTN (hypertension) Status: Chronic Current Visit: Yes (6) Syncope, cardiogenic Status: Resolved Current Visit: Yes (7) Urinary tract infection Status: Acute Current Visit: Yes Qualifiers: Urinary tract infection type: site unspecified Hematuria presence: without hematuria Qualified Code(s): N39.0 - Urinary tract infection, site not specified (8) Valvular disease Status: Acute Current Visit: Yes (9) Gout Status: Acute Current Visit: No (10) H/O aortic valve replacement Status: Chronic Current Visit: Yes Electrophysiology Subjective Interval history: PICC line was placed today. She is quite incontinent since the [place]oks was d/c-d. The externalized PM site is unchanged. No bleeding or erythema. Exam - Constitutional Vitals: Period Temp Pulse Resp BP Sys/Fitzgerald Pulse Ox Last 24 Hr 96.7 F-98.2 F 69-70 18-24 117-146/78-88 93-97 General appearance: over weight - Head Head exam: Present: normal inspection - Eye Eye exam: Absent: conjunctival injection Pupils: Absent: dilated - ENT ENT exam: Present: normal external ear exam - Neck Neck exam: Present: normal inspection - Respiratory Respiratory exam: Present: clear to auscultation bilaterally - Cardiovascular Cardiovascular exam: Present: irregular rhythm, systolic murmur - GI/Abdominal GI/Abdominal exam: Present: normal bowel sounds. Absent: distended - Extremities Exam Extremities exam: Present: normal inspection - Neurological Exam Neurological exam: Present: alert - Psychiatric Psychiatric exam: Present: normal affect, normal mood - Skin Skin exam: Present: normal color, warm. Absent: cyanosis Results - Labs CBC & BMP: 06/12/16 05:41 06/12/16 05:41 Lab Results: I have reviewed the past 24 hour labs Quality Measures - VTE Contraindication to Pharmacological VTE Prophylaxis: Coagulopathy
[2016-06-12] MEDS: ATORVASTATIN 10 MG TABLET PO SCH (21:57)
[2016-06-13] MEDS: AMPICILLIN INJ 2,000 MG in SODIUM CHLORIDE 0.9% 100 ML IV SCH ×5 (00:52→23:56)
[2016-06-13 06:02] LABS: Basophils # 0.1 10*3/uL (0.0-0.2); Basophils % 0.3 % (0.0-0.8); Eosinophils % 0.2 % (0.00-10.9); Hematocrit 36.4 VOL% (35.7-47.0); Hemoglobin 11.2 GM/DL (12.0-16.0); Immature Granulocytes % 1.2 %; Immature Granulocytes Absolute 0.25 #; Lymphocytes # 1.7 10*3/uL (1.4-4.0); Lymphocytes % 8.3 % (21.3-54.2); Mean Corpuscular HGB Conc 30.8 GM/DL (32-36); Mean Corpuscular Hemoglobin 28 PG (27-34); Mean Corpuscular Volume 90.8 FL (87-102); Monocytes # 1.3 10*3/uL (0.11-0.8); Monocytes % 6.5 % (1.7-12.7); NRBC # 0.06 10*3/uL; Neutrophils # 16.9 10*3/uL (1.4-7.4); Neutrophils % 83.5 % (38.7-73.9); Platelet Count 176 T/CUMM (130-400); Red Blood Count 4.01 MC/CUMM (3.8-5.5); Red Cell Distribution Width 17.1 % (9.3-17.3); White Blood Count 20.2 T/CUMM (4-12)
[2016-06-13 06:26] LABS: Hypochromasia 1+; Polychromasia Slight
[2016-06-13 06:31] LABS: Calcium 8.9 MG/DL (8.5-10.1); Osmolality,Calculated 287.8 MOS/KG (273-304); Potassium 3.4 MMOL/L (3.5-5.1)
--- NOTE | 2016-06-13 07:36 | Pulmonology Progress Note ---
Pulmonary - PN: Subj Interval history: This 89-year-old white female had asystole with syncope. She has a temporary pacemaker. She was ventilated but was able to be extubated yesterday. She has a urinary tract infection with enterococcus with enterococcal sepsis. She had another set of blood cultures drawn yesterday. If they boot turner to be negative then we could proceed with a permanent pacemaker/AICD. At present she is alert responsive. She is a little bit dysarthric. ABGs look good post extubation. 06/05/2016 patient has done well since extubation. O2 sats in high 90s on nasal oxygen. She is comfortable. Last set of blood cultures are negative thus far. Probably could proceed with permanent pacemaker. 06/06/2016 patient is afebrile and has negative cultures from 3 days back. She is set up for permanent pacemaker today. The mechanism of her cardiac arrest was felt to be cardiac rhythm problems with asystole. Patient is responsive. She continues to be a bit tachypneic probably some congestive heart failure. 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 Pacemaker was changed to a different site but it is still temporary because of the bacteremia. Last cultures were negative. She is breathing 25-35 times a minute. She is requiring 50% Ventimask and oxygen saturation is 94% on that. Yesterday's chest x-ray did not look wet. We will repeat one tomorrow. Her white blood count is up to 27,000. Her INR was also 4.5 yesterday which would preclude permanent pacemaker placement. That will probably be put off until she said adequate antibiotics to clear her endocarditis. Do not know if she will need her aortic valve replaced again. 06/08/2016 patient's respiratory rate has slowed down to the upper teens or 20s. Oxygen saturation a little better. Chest x-ray still shows small pleural effusions and mild congestive heart failure. 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 She is afebrile. White blood count is come down from 27,000-20, 000. Stable from pulmonary standpoint. 06/11/2016 patient has been afebrile over the weekend. Starting to take in a little more oral nourishment. Awaiting placement. Will need prolonged antibiotics. Prognosis is guarded due to advanced age and endocarditis from a prosthetic valve. Cardiac surgery has recommended against surgery. 06/12/2016 patient now on regular recio. Afebrile. Still has elevated white count. Needs prolonged IV antibiotics. Arrangements being made for her to go to [facility] to an LTAC there. Her daughter teaches college at [place]. That is nearby. From pulmonary standpoint she is stable. I will sign off. Please call if needed further. 06/13/2016 patient is stable not short of breath at rest. I do note that plans for transfer to LTAC at [facility] have not come to fruition. Apparently there is concern about follow-up of the external temporary pacemaker. It may be best to send to LTAC locally where the delivery department supervisor could follow her there. She is going to need long-term IV antibiotics with ampicillin. Exam (Progress Note) - Constitutional Vitals: Period Temp Pulse Resp BP Sys/Fitzgerald Pulse Ox Last 24 Hr 96.7 F-98.7 F 69-70 18-24 131-159/80-90 93-98 Exam: Vital signs normal, respiratory rate in the 15-20 range. Pupils react to light. She is alert and appears oriented. Her speech is a little dysarthric. Neck is supple no bruits. Chest reveals a few scattered rhonchi. Heart paced rhythm no murmurs. Abdomen soft nontender no masses. Bowel sounds present. Extremities no clubbing cyanosis edema. Calves nontender. Results - Labs CBC & BMP: 06/13/16 05:36 06/13/16 05:36 Lab Results: I have reviewed the past 24 hour labs Assessment and Plan (1) Sepsis Status: Acute Assessment and plan: She has positive blood cultures for enterococcus and is on ampicillin. Will need to have negative blood cultures before consideration of a permanent pacemaker/AICD is done. 06/04/2016 this appears to be controlled with antibiotics. Repeating blood cultures. Once we have negative blood cultures and a permanent pacemaker can be planned. 06/05/2016 continuing with antibiotics. Last set of blood cultures are negative thus far. 06/06/2016 sepsis appears to be controlled. 06/07/2016 blood cultures negative now. Appears to have endocarditis however. 06/08/2016 negative blood cultures, no fever, white blood count coming down. Known endocarditis. 06/11/2016 sepsis is controlled. 06/12/2016 plans are for prolonged IV antibiotics for her endocarditis. Sepsis is controlled. 06/13/2016 sepsis is controlled. 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 Current Visit: Yes (2) Urinary tract infection Status: Acute Assessment and plan: Continuing ampicillin for enterococcal UTI. 06/05/2016 continuing ampicillin for enterococcal UTI and sepsis. Needs a total of about 2 weeks more. 06/06/2016 continuing antibiotics for enterococcal UTI with sepsis. Needs antibiotics through about 17 June. 06/07/2016 on appropriate antibiotics for the enterococcus. 06/08/2016 again on appropriate antibiotics 06/11/2016 antibiotics are given now for enterococcal sepsis. Enterococcal UTI should be under control. Current Visit: Yes Qualifiers: Urinary tract infection type: site unspecified Hematuria presence: without hematuria Qualified Code(s): N39.0 - Urinary tract infection, site not specified (3) H/O aortic valve replacement Status: Chronic Assessment and plan: Chronically on Coumadin for a mechanical aortic valve replacement in the past. Further records indicate that it is bioprosthetic. 06/04/2016 has a bioprosthetic aortic valve. 06/06/2016 this is all the more reason for at least 2 weeks of IV antibiotics for the enterococcal sepsis. 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 Cardiac surgery has recommended against surgery. She is high risk either way. 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 Needs prolonged antibiotics. 06/12/2016 again prolonged antibiotics planned. 06/13/2016 bioprosthetic aortic valve with endocarditis. Long-term antibiotics planned. Poor surgical candidate. Prognosis poor. Current Visit: Yes (4) Cardiac asystole Status: Resolved Assessment and plan: Had long pauses and probably asystole as the mechanism of her syncope and arrest. 06/04/2016 this is the cause of her syncope. Has temporary pacemaker. 06/05/2016 does not appear to have any significant hypoxic brain injury. Temporary pacemaker in place. Plan for permanent pacemaker when sepsis controlled. Again last blood culture negative thus far. 06/06/2016 mental status is good. For permanent pacemaker today. 06/07/2016 she has a pacemaker now for the episode of asystole. 06/08/2016 has an external pacemaker. Still concerned about placing a permanent pacemaker due to her sepsis. 06/11/2016 has a pacemaker that is semipermanent. Current Visit: Yes (5) Syncope, cardiogenic Status: Resolved Assessment and plan: Arrhythmia was felt to be the cause of her syncope. Defer to Dr. Palacios. 06/05/2016 due to asystole. 06/13/2016 her syncope and cardiac arrest were due to arrhythmias with asystole. Has pacemaker. Needs permanent pacemaker if and when endocarditis can be cleared Current Visit: Yes (6) Acute respiratory failure Status: Acute Assessment and plan: This is likely due to the arrhythmia and some congestive heart failure. ABGs look good. Patient is presently sedated. Will hold sedation and start CPAP trials and see when we can get her extubated. 06/04/2016 ABGs look good post extubation. Does not have chronic lung disease. 06/05/2016 this is much improved. 06/06/2016 patient has done well since extubation except for tachypnea. O2 sats look okay. Chest x-ray is pending 06/07/2016 she is off the ventilator. Still requiring a good bit of oxygen. 06/08/16 on nasal oxygen. Respiratory rate is slowed down. Respiratory failure is controlled 06/11/2016 O2 sats in mid 90s on nasal oxygen. 06/12/2016 respiratory failure resolved. Signing off for pulmonary. 06/13/2016 will follow again since she may be going to local LTAC. Current Visit: Yes
--- NOTE | 2016-06-13 08:09 | Electrophysiology Progress Not ---
Assessment and Plan (1) Cardiac asystole Status: Resolved Assessment and plan: 89-year-old female, with permanent atrial fibrillation, status post aortic valve replacement, syncope, likely due to bradycardia. E. faecalis UTI, sepsis. 05/31: RVF temp PM implant, then reposition 06/02: VF arrest 06/06: FREEDOM, externalized VVI PM implant, RFV temp PM explant -Externalized PM. Keep occlusive dressing in place. Recommend dressing and Biopatch change only if sign of infection noted or 1/week. This has to be done with full sterile technique. Once bioprosthetic AVR endocarditis heals, a permanent device may be implanted - will need to assess around 07/09. -OK to move to [facility], we can follow her there. With any questions, call me or my office. -Wear the sling all time. May move R arm as allowed by the sling -PVT/VF. No recurrence. Was likely due to coronary embolization for vegetation , had small NY from this. Cont metoprolol -Anticoagulation. High embolic risk from AF and endocarditis. Cont anticoagulation. Current Visit: Yes (2) Atrial fibrillation Status: Inactive Current Visit: Yes Qualifiers: Atrial fibrillation type: chronic Qualified Code(s): I48.2 - Chronic atrial fibrillation (3) Dyslipidemia Status: Chronic Current Visit: Yes (4) Fever Status: Resolved Current Visit: Yes (5) HTN (hypertension) Status: Chronic Current Visit: Yes (6) Syncope, cardiogenic Status: Resolved Current Visit: Yes (7) Urinary tract infection Status: Acute Current Visit: Yes Qualifiers: Urinary tract infection type: site unspecified Hematuria presence: without hematuria Qualified Code(s): N39.0 - Urinary tract infection, site not specified (8) Valvular disease Status: Acute Current Visit: Yes (9) Gout Status: Acute Current Visit: No (10) H/O aortic valve replacement Status: Chronic Current Visit: Yes Electrophysiology Subjective Interval history: She is feeling fine. Appetite improved. No shortness of breath today. WBC still elevated. No fever. The externalized PM site shows no signs of infection and there is no bleeding. Exam - Constitutional Vitals: Period Temp Pulse Resp BP Sys/Fitzgerald Pulse Ox Last 24 Hr 97.1 F-98.7 F 69-70 18-24 131-159/80-90 93-98 General appearance: over weight - Head Head exam: Present: normal inspection - Eye Eye exam: Absent: conjunctival injection Pupils: Absent: dilated - ENT ENT exam: Present: normal external ear exam - Neck Neck exam: Present: normal inspection - Respiratory Respiratory exam: Present: clear to auscultation bilaterally - Cardiovascular Cardiovascular exam: Present: irregular rhythm, systolic murmur - GI/Abdominal GI/Abdominal exam: Present: normal bowel sounds - Extremities Exam Extremities exam: Present: normal inspection, normal capillary refill. Absent: edema - Neurological Exam Neurological exam: Present: alert - Psychiatric Psychiatric exam: Present: normal affect, normal mood - Skin Skin exam: Present: normal color, warm. Absent: cyanosis Results - Labs CBC & BMP: 06/13/16 05:36 06/13/16 05:36 Lab Results: I have reviewed the past 24 hour labs Quality Measures - VTE Contraindication to Pharmacological VTE Prophylaxis: Coagulopathy
[2016-06-13] MEDS: FUROSEMIDE 20 MG/2 ML VIAL IV SCH ×2 (09:34→17:12)
[2016-06-13] MEDS: POTASSIUM CHLORIDE 20 MEQ TABLET PO SCH (09:35)
[2016-06-13] MEDS: ALLOPURINOL 300 MG TABLET PO SCH (09:35)
[2016-06-13] MEDS: APIXABAN 5 MG TABLET PO SCH ×2 (09:35→22:08)
[2016-06-13] MEDS: CALCIUM (CARBONATE) 500 MG TABLET PO SCH ×2 (09:35→22:09)
[2016-06-13] MEDS: METOPROLOL SUCCINATE XL 25 MG TABLET PO SCH (09:35)
[2016-06-13] MEDS: LOSARTAN 50 MG TABLET PO SCH (09:35)
[2016-06-13] MEDS: DILTIAZEM 60 MG TABLET PO SCH ×2 (09:35→22:18)
[2016-06-13] MEDS: ASPIRIN EC 81 MG TABLET PO SCH (09:35)
[2016-06-13] MEDS: MULTIVITAMIN (OCUVITE) TABLET PO SCH ×2 (09:35→22:09)
[2016-06-13] MEDS: DESITIN 4OZ/NYSTATIN 15 GRAM MIXTURE PASTE TOP SCH (09:36)
[2016-06-13] MEDS: PANTOPRAZOLE 40 MG TABLET PO SCH (09:36)
[2016-06-13] MEDS: FLUTICASONE/SALMETEROL 250-50 DISKUS 14 DOSE INH SCH (09:36)
[2016-06-13] MEDS: POTASSIUM CHLORIDE RIDER 10 MEQ in PREMIX 1 EACH IV PRN ×3 (10:03→12:15)
[2016-06-13] MEDS ORDERED: POTASSIUM CHLORIDE 20 MEQ TABLET PO ONE (19:06)
[2016-06-13] MEDS ORDERED: POTASSIUM CHLORIDE 20 MEQ TABLET PO SCH (19:09)
--- NOTE | 2016-06-13 19:10 | Hospitalist Progress Note ---
Assessment and Plan (1) Cardiac asystole Status: Resolved Assessment and plan: s/p temporary pacer, will place permanent pacemaker when patient is done with IV antibiotics Current Visit: Yes (2) Acute respiratory failure with hypoxia Status: Acute Assessment and plan: Chest x-ray and elevated BNP increase lasix Current Visit: Yes (3) Enterococcus UTI Status: Acute Assessment and plan: Cont ampicillin IV good sensitivities. s/p PICC line Current Visit: Yes (4) Enterococcal bacteremia Status: Acute Assessment and plan: ampicillin for total of 6 weeks Current Visit: Yes (5) Atrial fibrillation Status: Chronic Assessment and plan: cont eliquis and dilt Current Visit: Yes (6) SBE (subacute bacterial endocarditis) Status: Acute Assessment and plan: treatment with IV ampicillin for 6 weeks (begining on 06/03/16) Current Visit: Yes Hospitalist: Subjective Interval history: Daughter at bedside. We will try to get her out of bed today with PT and OT. She is been declined at other facilities due to the temporary pacemaker. Patient's breathing she seems a little short of breath today. She is in good spirits and positive Exam - Constitutional Vitals: Period Temp Pulse Resp BP Sys/Fitzgerald Pulse Ox Last 24 Hr 96.7 F-98.7 F 69-70 18-20 117-159/70-90 93-98 Exam: Heart Rate-[RRR] Lungs-[diminished] GI-[+bs soft, NT] Ext-[no edema] Neuro [Motor 5/5], [alert and oriented times 2] psych [normal mood and affect] General [mild acute respiratory distress] Results - Labs CBC & BMP: 06/13/16 05:36 06/13/16 05:36 Lab Results: I have reviewed the past 24 hour labs Quality Measures - VTE Contraindication to Pharmacological VTE Prophylaxis: Coagulopathy
[2016-06-13] MEDS: FUROSEMIDE 40 MG/4 ML VIAL IV SCH (22:09)
[2016-06-13] MEDS: ATORVASTATIN 10 MG TABLET PO SCH (22:09)
[2016-06-14] MEDS: DESITIN 4OZ/NYSTATIN 15 GRAM MIXTURE PASTE TOP SCH ×2 (00:01→09:26)
[2016-06-14] MEDS: FLUTICASONE/SALMETEROL 250-50 DISKUS 14 DOSE INH SCH ×2 (00:01→09:26)
[2016-06-14] MEDS: AMPICILLIN INJ 2,000 MG in SODIUM CHLORIDE 0.9% 100 ML IV SCH ×2 (05:51→11:57)
[2016-06-14 06:35] LABS: Basophils # 0.1 10*3/uL (0.0-0.2); Basophils % 0.3 % (0.0-0.8); Eosinophils # 0.1 10*3/uL (0.0-0.87); Eosinophils % 0.4 % (0.00-10.9); Hematocrit 34.8 VOL% (35.7-47.0); Hemoglobin 10.7 GM/DL (12.0-16.0); Immature Granulocytes % 0.8 %; Immature Granulocytes Absolute 0.16 #; Lymphocytes # 1.7 10*3/uL (1.4-4.0); Lymphocytes % 8.6 % (21.3-54.2); Mean Corpuscular HGB Conc 30.7 GM/DL (32-36); Mean Corpuscular Hemoglobin 28 PG (27-34); Mean Corpuscular Volume 90.4 FL (87-102); Mean Platelet Volume 12.1 FL (9.6-12.0); Monocytes # 1.4 10*3/uL (0.11-0.8); Neutrophils # 16.2 10*3/uL (1.4-7.4); Neutrophils % 82.9 % (38.7-73.9); Platelet Count 159 T/CUMM (130-400); Red Blood Count 3.85 MC/CUMM (3.8-5.5); Red Cell Distribution Width 17.2 % (9.3-17.3); White Blood Count 19.6 T/CUMM (4-12)
[2016-06-14 07:06] LABS: Calcium 8.4 MG/DL (8.5-10.1); Osmolality,Calculated 287.7 MOS/KG (273-304); Potassium 3.5 MMOL/L (3.5-5.1)
--- NOTE | 2016-06-14 07:44 | Pulmonology Progress Note ---
Pulmonary - PN: Subj Interval history: This 89-year-old white female had asystole with syncope. She has a temporary pacemaker. She was ventilated but was able to be extubated yesterday. She has a urinary tract infection with enterococcus with enterococcal sepsis. She had another set of blood cultures drawn yesterday. If they turn machine operator to be negative then we could proceed with a permanent pacemaker/AICD. At present she is alert responsive. She is a little bit dysarthric. ABGs look good post extubation. 06/05/2016 patient has done well since extubation. O2 sats in high 90s on nasal oxygen. She is comfortable. Last set of blood cultures are negative thus far. Probably could proceed with permanent pacemaker. 06/06/2016 patient is afebrile and has negative cultures from 3 days back. She is set up for permanent pacemaker today. The mechanism of her cardiac arrest was felt to be cardiac rhythm problems with asystole. Patient is responsive. She continues to be a bit tachypneic probably some congestive heart failure. 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 Pacemaker was changed to a different site but it is still temporary because of the bacteremia. Last cultures were negative. She is breathing 25-35 times a minute. She is requiring 50% Ventimask and oxygen saturation is 94% on that. Yesterday's chest x-ray did not look wet. We will repeat one tomorrow. Her white blood count is up to 27,000. Her INR was also 4.5 yesterday which would preclude permanent pacemaker placement. That will probably be put off until she said adequate antibiotics to clear her endocarditis. Do not know if she will need her aortic valve replaced again. 06/08/2016 patient's respiratory rate has slowed down to the upper teens or 20s. Oxygen saturation a little better. Chest x-ray still shows small pleural effusions and mild congestive heart failure. 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 She is afebrile. White blood count is come down from 27,000-20, 000. Stable from pulmonary standpoint. 06/11/2016 patient has been afebrile over the weekend. Starting to take in a little more oral nourishment. Awaiting placement. Will need prolonged antibiotics. Prognosis is guarded due to advanced age and endocarditis from a prosthetic valve. Cardiac surgery has recommended against surgery. 06/12/2016 patient now on regular recio. Afebrile. Still has elevated white count. Needs prolonged IV antibiotics. Arrangements being made for her to go to [facility] to an LTAC there. Her daughter teaches college at [place]. That is nearby. From pulmonary standpoint she is stable. I will sign off. Please call if needed further. 06/13/2016 patient is stable not short of breath at rest. I do note that plans for transfer to LTAC at [facility] have not come to fruition. Apparently there is concern about follow-up of the external temporary pacemaker. It may be best to send to LTAC locally where the host/hostess could follow her there. She is going to need long-term IV antibiotics with ampicillin. 06/14/2016 only new complaint is right earache. Her right tympanic membrane is dull, and she may have some otitis. She is already on good IV antibiotics. Will add Auralgan. [facility] is going to be able to take her in transfer today. Arrangements being made. She will need IV antibiotics through about July 15 that would be 6 weeks from her first negative blood culture. Will need echo at the end of that to see what the vegetation looks like. Will need cardiology to follow with us with her temporary pacemaker. Exam (Progress Note) - Constitutional Vitals: Period Temp Pulse Resp BP Sys/Fitzgerald Pulse Ox Last 24 Hr 96.7 F-98.8 F 69-70 16-20 117-138/68-76 93-98 Exam: Vital signs normal, respiratory rate in the 15-20 range. Pupils react to light. She is alert and appears oriented. Her speech is a little dysarthric. Right tympanic membrane is dull but not read. Neck is supple no bruits. Chest reveals a few scattered rhonchi. Heart paced rhythm no murmurs. Abdomen soft nontender no masses. Bowel sounds present. Extremities no clubbing cyanosis edema. Calves nontender. Results - Labs CBC & BMP: 06/14/16 04:39 06/14/16 04:39 Lab Results: I have reviewed the past 24 hour labs Assessment and Plan (1) Sepsis Status: Acute Assessment and plan: She has positive blood cultures for enterococcus and is on ampicillin. Will need to have negative blood cultures before consideration of a permanent pacemaker/AICD is done. 06/04/2016 this appears to be controlled with antibiotics. Repeating blood cultures. Once we have negative blood cultures and a permanent pacemaker can be planned. 06/05/2016 continuing with antibiotics. Last set of blood cultures are negative thus far. 06/06/2016 sepsis appears to be controlled. 06/07/2016 blood cultures negative now. Appears to have endocarditis however. 06/08/2016 negative blood cultures, no fever, white blood count coming down. Known endocarditis. 06/11/2016 sepsis is controlled. 06/12/2016 plans are for prolonged IV antibiotics for her endocarditis. Sepsis is controlled. 06/13/2016 sepsis is controlled. 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 06/14/2016 enterococcal sepsis with endocarditis. Artificial aortic valve with vegetation on echo. Plans are for ampicillin through July 15 and then reevaluate. Patient has PICC line in place. Plans are to go to [facility] today. Current Visit: Yes (2) Urinary tract infection Status: Acute Assessment and plan: Continuing ampicillin for enterococcal UTI. 06/05/2016 continuing ampicillin for enterococcal UTI and sepsis. Needs a total of about 2 weeks more. 06/06/2016 continuing antibiotics for enterococcal UTI with sepsis. Needs antibiotics through about 17 June. 06/07/2016 on appropriate antibiotics for the enterococcus. 06/08/2016 again on appropriate antibiotics 06/11/2016 antibiotics are given now for enterococcal sepsis. Enterococcal UTI should be under control. 06/14/2016 had enterococcal urinary tract infection with the same organism that was in her blood. Likely the source of her sepsis. Current Visit: Yes Qualifiers: Urinary tract infection type: site unspecified Hematuria presence: without hematuria Qualified Code(s): N39.0 - Urinary tract infection, site not specified (3) H/O aortic valve replacement Status: Chronic Assessment and plan: Chronically on Coumadin for a mechanical aortic valve replacement in the past. Further records indicate that it is bioprosthetic. 06/04/2016 has a bioprosthetic aortic valve. 06/06/2016 this is all the more reason for at least 2 weeks of IV antibiotics for the enterococcal sepsis. 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 Cardiac surgery has recommended against surgery. She is high risk either way. 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 Needs prolonged antibiotics. 06/12/2016 again prolonged antibiotics planned. 06/13/2016 bioprosthetic aortic valve with endocarditis. Long-term antibiotics planned. Poor surgical candidate. Prognosis poor. 06/14/2016 has bioprosthetic aortic valve with visible on echo vegetation. Case has been reviewed by cardiac surgery and they do not feel that surgery is the best option. She would be very high risk for surgery. Current Visit: Yes (4) Cardiac asystole Status: Resolved Assessment and plan: Had long pauses and probably asystole as the mechanism of her syncope and arrest. 06/04/2016 this is the cause of her syncope. Has temporary pacemaker. 06/05/2016 does not appear to have any significant hypoxic brain injury. Temporary pacemaker in place. Plan for permanent pacemaker when sepsis controlled. Again last blood culture negative thus far. 06/06/2016 mental status is good. For permanent pacemaker today. 06/07/2016 she has a pacemaker now for the episode of asystole. 06/08/2016 has an external pacemaker. Still concerned about placing a permanent pacemaker due to her sepsis. 06/11/2016 has a pacemaker that is semipermanent. 06/14/2016 has a pacemaker with an external component. Dr. Moreno does not want to put a permanent pacemaker in until her bacteremia/endocarditis is resolved. Current Visit: Yes (5) Syncope, cardiogenic Status: Resolved Assessment and plan: Arrhythmia was felt to be the cause of her syncope. Defer to Dr. Palacios. 06/05/2016 due to asystole. 06/13/2016 her syncope and cardiac arrest were due to arrhythmias with asystole. Has pacemaker. Needs permanent pacemaker if and when endocarditis can be cleared 06/14/2016 her syncope and cardiac arrest were due to asystole. Now has pacemaker. Current Visit: Yes (6) Acute respiratory failure Status: Acute Assessment and plan: This is likely due to the arrhythmia and some congestive heart failure. ABGs look good. Patient is presently sedated. Will hold sedation and start CPAP trials and see when we can get her extubated. 06/04/2016 ABGs look good post extubation. Does not have chronic lung disease. 06/05/2016 this is much improved. 06/06/2016 patient has done well since extubation except for tachypnea. O2 sats look okay. Chest x-ray is pending 06/07/2016 she is off the ventilator. Still requiring a good bit of oxygen. 06/08/16 on nasal oxygen. Respiratory rate is slowed down. Respiratory failure is controlled 06/11/2016 O2 sats in mid 90s on nasal oxygen. 06/12/2016 respiratory failure resolved. Signing off for pulmonary. 06/13/2016 will follow again since she may be going to local LTAC. 06/14/2016 respiratory failure has resolved. Still requiring low flow oxygen. I will be following her at [facility]. Current Visit: Yes
[2016-06-14] MEDS: FUROSEMIDE 40 MG/4 ML VIAL IV SCH (09:24)
[2016-06-14] MEDS: MULTIVITAMIN (OCUVITE) TABLET PO SCH (09:25)
[2016-06-14] MEDS: DILTIAZEM 60 MG TABLET PO SCH (09:25)
[2016-06-14] MEDS: PANTOPRAZOLE 40 MG TABLET PO SCH (09:25)
[2016-06-14] MEDS: ASPIRIN EC 81 MG TABLET PO SCH (09:25)
[2016-06-14] MEDS: LOSARTAN 50 MG TABLET PO SCH (09:25)
[2016-06-14] MEDS: APIXABAN 5 MG TABLET PO SCH (09:25)
[2016-06-14] MEDS: ALLOPURINOL 300 MG TABLET PO SCH (09:25)
[2016-06-14] MEDS: METOPROLOL SUCCINATE XL 25 MG TABLET PO SCH (09:25)
[2016-06-14] MEDS: CALCIUM (CARBONATE) 500 MG TABLET PO SCH (09:26)
--- NOTE | 2016-06-14 09:32 | Discharge Summary ---
Hospital Course - Hospital Course Hospital Course: 89-year-old white female with a history of hypertension, AVR and atrial fib presented with fevers chills to the emergency room and was diagnosed with UTI. Her white count on admission was 17.9. She was initially started on IV Rocephin and was admitted to the hospital. On May 31, 2016 patient fell and hit her head and developed a hematoma on her forehead she was transferred to the ICU as they were concerned patient was having seizures. Patient went asystolic and was coded and resuscitated and intubated. Dr. Alba from cardiology saw her and diagnosed her with cardiac asystole and contacted Dr. Palacios for a single chamber pacemaker. A temporary pacemaker was placed on 2016. Patient had a history of an aortic aortic valve replacement. Temporary pacemaker stops working and a [employer] temporary pacing wire had to be deployed through her right femoral vein by Dr. Owens. She was ventilated but was able to be quickly extubated. Her urinary tract infection grew enterococcus with enterococcal sepsis. 4 of her blood cultures also came back Enterococcus faecalis. Patient was switched over to ampicillin and gentamicin on June 01, 2016. Echocardiogram May 31, 2016 showed an EF of 55% with moderate biatrial enlargement and a bioprosthetic aortic valve. Severe tricuspid regurgitation with pulmonary hypertension but no valvular vegetations were noted on the transthoracic. Despite aggressive antibiotics her white count began to climb up to a high of 20.9 and despite sensitivities to ampicillin she was switched over to daptomycin and the gentamicin was discontinued. 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 Patient will need 6 weeks of IV antibiotics. Her first negative blood cultures were from June 03, 2016. Once she received 6 weeks of IV antibiotics she will have a permanent pacemaker placed. Currently the temporary pacemaker external and sewn to her chest. Patient was on Coumadin on admission and was supratherapeutic Coumadin was discontinued and INR decreased she was started on lovenox twice a day. We will restart her Coumadin. Her hemoglobin has been stable. Her white count is improving. Patient developed some congestive heart failure and has been diuresed with Lasix. Cardiacthoracic surgery has seen her but does not feel she is a surgical candidate for removing the vegetation. Her daughter wanted her transferred to an LTAC in [place] which would be closer to her however she has been declined at all facilities except for [facility]. [facility] is agreed to take her today and will finish up her IV antibiotics. Dr. Martinez will be managing her care over at [facility]. Cardiology will continue to follow with plans of placing a permanent pacemaker after 6 weeks of IV antibiotics. - Time spent with patient Time with patient DS: Greater than 30 minutes (60 min) Diagnosis - Discharge Diagnosis (1) Cardiac asystole Status: Resolved (2) Acute respiratory failure with hypoxia Status: Acute (3) Enterococcus UTI Status: Acute (4) Enterococcal bacteremia Status: Acute (5) Atrial fibrillation Status: Chronic (6) SBE (subacute bacterial endocarditis) Status: Acute Discharge Plan - Discharge Data Disposition: Disch/Xfer-[facility] Condition at Discharge: Stable Discharge Diet: heart healthy, low salt diet Activity: resume usual activities as tolerated, as per physical therapy Hygiene: no restrictions Weight Bearing at Discharge: full weight bearing - Discharge Medications New Albuterol/Ipratropium Neb [Duoneb] 3 ml RESP TX RT Q4H PRN #0 PRN Reason: Shortness Of Breath/Wheezing Diltiazem Tab [Cardizem Tab] 120 mg PO BID tablet Enoxaparin [Lovenox] 80 mg SUBCUT Q12H #10 syringe Furosemide Inj [Lasix Inj] 40 mg IV DAILY W/BREAKFAST vial HYDROcodone/ACETAMIN 5-325 [[place] 5-325] 1 tablet PO Q4H PRN #0 tablet PRN Reason: Pain Moderate (4-7) Losartan [Cozaar] 100 mg PO DAILY tablet Magnesium Hydroxide Susp [Milk of Magnesia] 30 ml PO DAILY PRN #0 PRN Reason: Constipation Multivitamin (Ocuvite) [Ocuvite] 1 tablet PO BID tablet Ondansetron Inj [Zofran Inj] 4 mg IV Q6H PRN #0 vial PRN Reason: Nausea/Vomiting Pantoprazole Tab [Protonix Tab] 40 mg PO DAILY tablet Potassium Chloride Cap/Tab [K Dur] 40 meq PO DAILY tablet Acetaminophen Tab [Tylenol Tab] 325 mg PO Q4H PRN #0 tablet PRN Reason: fever, headache/body aches Ampicillin Inj 2,000 mg IM Q6H 31 Days Metoprolol Succinate Xl [Toprol Xl] 25 mg PO DAILY tablet Continue Aspirin [Ecotrin] 81 mg PO DAILY Calcium (Carbonate) [Oscal 500] 500 mg PO BID Fluticasone/Salmeterol 250-50 [Advair 250-50] 1 puff INH BID Allopurinol 300 mg PO DAILY Atorvastatin [Lipitor] 5 mg PO QPM Changed Warfarin [Coumadin] 5 mg PO QPM #0 Discontinued amLODIPine [Norvasc] 5 mg PO QPM Furosemide Tab [Lasix Tab] 20 mg PO BID Meloxicam [Mobic] 7.5 mg PO BID PRN PRN Reason: Pain Metoprolol Tartrate 50 mg PO BID diltiaZEM HCl [Diltiazem HCl] 120 mg PO DAILY Vit C/Selvin AC/Lut/Copper/Znox [Preservision Lutein Softgel] 1 each PO BID - Follow Up or Referral - Forms/Instructions Exam - Constitutional Vitals: Period Temp Pulse Resp BP Sys/Fitzgerald Pulse Ox Last 24 Hr 96.7 F-98.8 F 69-70 16-20 117-138/68-76 93-98 General appearance: normal weight, no acute distress - Respiratory Respiratory exam: Present: clear to auscultation bilaterally. Absent: rales, wheezes - Cardiovascular Cardiovascular exam: Present: irregular rhythm - GI/Abdominal GI/Abdominal exam: Present: normal bowel sounds, soft. Absent: tenderness - Extremities Exam Extremities exam: Present: normal inspection, normal capillary refill - Neurological Exam Neurological exam: Present: alert, oriented X3 Discharge Results Procedures and tests throughout hospitalization: Pending Orders 05/29/16 22:01 Urine Culture Stat Labs on day of discharge: Labs from last 24 hours 06/14/16 06/14/16 04:39 04:39 WBC 19.6 H RBC 3.85 Hgb 10.7 L Hct 34.8 L MCV 90.4 MCH 28 MCHC 30.7 L RDW 17.2 Plt Count 159 MPV 12.1 H Neut % (Auto) 82.9 H Lymph % (Auto) 8.6 L [place] % (Auto) 7.0 Eos % (Auto) 0.4 Baso % (Auto) 0.3 Neut # (Auto) 16.2 H Lymph # (Auto) 1.7 [place] # (Auto) 1.4 H Eos # (Auto) 0.1 Baso # (Auto) 0.1 Immature Gran % 0.8 Nucleated RBC % 0.0 Immature Gran # 0.16 Nucleated RBCs # 0.00 Sodium 145 Potassium 3.5 Chloride 96 L Carbon Dioxide 35 H Anion Gap 17.5 H BUN 12 Creatinine 0.70 GFR Calculation 85 BUN/Creatinine Ratio 17.00 Glucose 96 Calculated Osmolality 287.7 Calcium 8.4 L DS: Provider Date of admission: 05/29/16 17:17 Primary care physician: . No PCP Attending physician on admission: Korin Alejo MD Consults: 05/29/16 22:01 Consult to Pharmacy [CONS] Routine Reason for Pharmacy Consult: Other Comment: coumadin management 05/30/16 15:15 Consult to Pharmacy [CONS] Routine Reason for Pharmacy Consult: Dose/Manage Vancomycin 05/31/16 06:24 Consult to Physician [CONS] Routine Comment: asystole episode Consulting Provider: Cardiology - [facility] When should Consulting Provider be notified: Now Person Notified: [place] with [facility] Date Notified: 05/31/16 Time Notified: 07:43 05/31/16 07:21 Consult to Physician [CONS] Routine Comment: s/p fall; C6 fracture Consulting Provider: Jerel Omalley Jr. When should Consulting Provider be notified: Now 05/31/16 08:57 Consult to Physician [CONS] Routine Comment: s/p fall; C6 fracture. Consulting Provider: Erik Blount When should Consulting Provider be notified: Now Date Notified: 05/31/16 Time Notified: 09:00 Consult Notification Comment: Left a message for the nurse with all information needed. 05/31/16 11:10 Consult to Physician [CONS] Routine Comment: post asystole;symptomatic tachybrady syndrome; Consulting Provider: Jason Palacios When should Consulting Provider be notified: Now 05/31/16 15:45 Consult to Physician [CONS] Routine Comment: s/p fall; C6 fracture Consulting Provider: Sanchez Salvador 06/01/16 08:57 Consult to Pharmacy [CONS] Routine Reason for Pharmacy Consult: Dose/Manage Gentamicin 06/02/16 14:57 Consult to Physician [CONS] Routine Comment: Pt on the ventilator Consulting Provider: Ian Martinez When should Consulting Provider be notified: Now 06/03/16 07:45 Consult to Physician [CONS] Routine Comment: live in companion Consulting Provider: When should Consulting Provider be notified: Now Consult to Specialist Group: Pulmonology When should Consulting Provider be notified: Now 06/03/16 09:57 Consult to Dietitian [CONS] Routine Reason for Dietitian: TPN/PPN-Initiate/Manage Consult Comment: Dr. quiñones to start peripheral nutrition on patient @ 50 cc/ hr 06/05/16 18:40 Consult to Anesthesiology [CONS] Routine Consulting Provider: Reason for Anesthesiology: Pre-op Clearance Consult Comment: VVI PM implant in MAC 06/06/16 18:45 Consult to Physician [CONS] Routine Comment: Consulting Provider: Jie Tabares Consult to Specialist Group: Cardiothoracic Surgery When should Consulting Provider be notified: In am Person Notified: [place] Date Notified: 06/07/16 Time Notified: 08:07 06/07/16 11:10 Consult to Case Mgmt/Social Srvs [CONS] Routine Reason for Case Mgmt/Social Srvs: LTAC 06/11/16 14:06 Consult to Pharmacy [CONS] Routine Reason for Pharmacy Consult: Other Comment: convert to eliquis 06/13/16 12:13 Consult to Occupational Therapy [CONS] Routine Reason for Occupational Therapy: Weakness Consult to Physical Therapy [CONS] Routine Reason for Physical Therapy: Evaluate and Treat 06/13/16 19:06 Consult to Speech Therapy [CONS] Routine Reason for Speech Therapy: Swallowing Impairment Discharging clinician: Sasha Arora MD
--- NOTE | 2016-06-14 12:06 | Electrophysiology Progress Not ---
Assessment and Plan (1) Cardiac asystole Status: Resolved Assessment and plan: 89-year-old female, with permanent atrial fibrillation, status post aortic valve replacement, syncope, likely due to bradycardia. E. faecalis UTI, sepsis. 05/31: RVF temp PM implant, then reposition 06/02: VF arrest 06/06: FREEDOM, externalized VVI PM implant, RFV temp PM explant -Externalized PM. Keep occlusive dressing in place. Recommend dressing and Biopatch change only if sign of infection noted or 1/week. This has to be done with full sterile technique. Once bioprosthetic AVR endocarditis heals, a permanent device may be implanted - will need to assess around 07/09. -OK to move to [facility], we can follow her there. With any questions, call me or my office. -Wear the sling all time. May move R arm as allowed by the sling -PVT/VF. No recurrence. Was likely due to coronary embolization for vegetation , had small CO from this. Cont metoprolol -Anticoagulation. High embolic risk from AF and endocarditis. Cont anticoagulation with Eliquis Current Visit: Yes (2) Atrial fibrillation Status: Inactive Current Visit: Yes Qualifiers: Atrial fibrillation type: chronic Qualified Code(s): I48.2 - Chronic atrial fibrillation (3) Dyslipidemia Status: Chronic Current Visit: Yes (4) Fever Status: Resolved Current Visit: Yes (5) HTN (hypertension) Status: Chronic Current Visit: Yes (6) Syncope, cardiogenic Status: Resolved Current Visit: Yes (7) Urinary tract infection Status: Acute Current Visit: Yes Qualifiers: Urinary tract infection type: site unspecified Hematuria presence: without hematuria Qualified Code(s): N39.0 - Urinary tract infection, site not specified (8) Valvular disease Status: Acute Current Visit: Yes (9) Gout Status: Acute Current Visit: No (10) H/O aortic valve replacement Status: Chronic Current Visit: Yes Electrophysiology Subjective Interval history: She is feeling fine. Did not ambulate yet. Ventricle pacing, atrial fibrillation telemetry. The externalized pacemaker site shows no sign of infection. Exam - Constitutional Vitals: Period Temp Pulse Resp BP Sys/Fitzgerald Pulse Ox Last 24 Hr 96.7 F-98.8 F 70-70 16-20 117-138/68-76 93-98 General appearance: over weight - Head Head exam: Present: normal inspection - Eye Eye exam: Absent: conjunctival injection Pupils: Absent: dilated - ENT ENT exam: Present: normal external ear exam - Neck Neck exam: Present: normal inspection - Respiratory Respiratory exam: Present: clear to auscultation bilaterally - Cardiovascular Cardiovascular exam: Present: regular rate and rhythm, systolic murmur - GI/Abdominal GI/Abdominal exam: Present: normal bowel sounds - Extremities Exam Extremities exam: Present: normal inspection, normal capillary refill - Neurological Exam Neurological exam: Present: alert - Psychiatric Psychiatric exam: Present: normal affect, normal mood - Skin Skin exam: Present: normal color, warm. Absent: cyanosis Results - Labs CBC & BMP: 06/14/16 04:39 06/14/16 04:39 Lab Results: I have reviewed the past 24 hour labs Quality Measures - VTE Contraindication to Pharmacological VTE Prophylaxis: Coagulopathy Specialty Discharge - Follow Up or Referrals Follow up with: Jason Palacios MD [Physician] - 07/26/16 1:10 pm
[2016-06-14 14:53] VITALS: BP 116/69
== END 2016-06-14 15:40 | disposition hospice, home (50) | DRG 871 ==
LOC: N.ED 10:52 → N.EDINP 17:17 → SUATTDRO 17:17 → N.3E 21:33 → N.CC 05-31 06:14 → N.5E 06-11 18:24
PROVIDERS: ADMIT Internal Medicine; ATTEND Internal Medicine